=== PATIENT | female | born 1945 | race Caucasian/White ===

== ENCOUNTER 2016-11-28 10:15 | Inpatient (IN) | payer BC, OTHER ==
[~2016-11-28] VITALS: Ht 165.1 cm; Wt 61.1 kg
[~2016-11-28 10:15] MED LIST: ATOR-54 PO; BIOT1CAP8 PO; CALC1CHW PO; CHOL100040 PO; CRAN500C2 PO; LEVO150T PO; LOSA50TA6 PO; METF1TAB53 PO; MISC1CAP58 PO; MULT-506 PO; OMEG10007 PO; PLV75 PO; POLY335019 PO; PRT/20 PO; RXC5 PO
--- NOTE | 2016-11-28 10:35 | EMERGENCY ROOM VISIT NOTE ---
History Report prepared by Virgil: Mary Hanson Under the Supervision of: Dr. Venancio Pavon M.D. First contact with patient: 10:26 Chief Complaint: SYNCOPE (NEAR SYNCOPE) Stated Complaint: FAINT Nursing Triage Summary: pt near syncope today per spouse reports was like this when she had a mini stroke approx 10 months ago feels nauseated. pt able to speak no slurring noted. pt looks pale in color History of Present Illness The patient is a 71 year old female who presents to the Emergency Room with complaints of an episode of near syncope that occurred this morning. She is accompanied by her . He reports he found her this morning on the toilet, slumped over and not normally responsive. He does not believe she completely lost consciousness. He notes the patient had similar symptoms about 10 months ago when she experienced a TIA. The patient complains of feeling nauseous currently, but she has not vomited. She denies any chest pain or difficulty breathing. She denies any abdominal pain, urinary symptoms or pain or swelling in her legs. She underwent a left humerus repair surgery last month after a " bad fall", but states she is no longer taking pain medication for her discomfort. MRI confirmed a stroke in January 2016, with identical symptoms. Source of History: patient Onset: this morning Position: other (global) Timing: resolved Associated Symptoms: + nausea, No LOC, No SOB, No abdominal pain, No chest pain, No urinary symptoms, No vomiting Review of Systems See HPI for pertinent positives & negatives. A total of 10 systems reviewed and were otherwise negative. Past Medical & Surgical Medical Problems: (1) Fracture of humeral head, left, closed (2) Pre-syncope (3) Stroke Surgical Problems: (1) Hx of appendectomy Family History Diabetes mellitus Social History Smoking Status: Never Smoker Alcohol Use: occasionally Drug Use: none Marital Status: Housing Status: lives with family Occupation Status: retired Current/Historical Medications Scheduled Atorvastatin (Lipitor), 20 MG PO QAM Biotin (Biotin), 1 TAB PO QAM Calcium Carbonate-Vitamin D (Caltrate 600+D), 1 TAB PO QAM Cholecalciferol (Vitamin D-1000), 1 TAB PO QAM Clopidogrel Bisulfate (Clopidogrel), 1 TAB PO QAM Cranberry (Vaccinium Macrocarp (Cranberry), 1 TAB PO QAM Fish Oil ([place]-3), 1 CAP PO QAM Levothyroxine Sodium (Synthroid), 150 MCG PO QAM Losartan Potassium (Cozaar), 1 TAB PO DAILY Metformin Hcl (Glucophage Ext Rel), 500 MG PO BID Misc Natural Products (Lutein 20), 1 TAB PO QAM Multivitamin (Multivitamin), 1 TAB PO QAM Pantoprazole (Protonix), 20 MG PO QAM Scheduled PRN Oxycodone HCl (Oxycodone HCl), 5 MG PO Q6 PRN for Pain Polyethylene Glycol 3350 (Miralax), 17 GM PO DAILY PRN for Constipation Allergies Coded Allergies: No Known Allergies (Unverified , 11/28/16) Physical Exam Vital Signs Date Time Temp Pulse Resp B/P Pulse Ox O2 Delivery O2 Flow Rate FiO2 11/28/16 11:44 88 131/70 90 140/65 100 129/69 11/28/16 11:26 80 16 149/67 97 Room Air 11/28/16 10:20 36.4 83 18 115/70 99 Room Air Physical Exam GENERAL: Patient is ill-appearing and in moderate distress. She appears pale and about to pass out. HEENT: No acute trauma, normocephalic atraumatic, mucous membranes moist, no nasal congestion, no scleral icterus. NECK: No stridor, no adenopathy, no meningismus, trachea is midline. LUNGS: No dyspnea. Clear to auscultation and equal bilaterally. No wheeze, no rhonchi. HEART: Regular rate and rhythm. No murmurs, rubs, gallops appreciated. ABDOMEN: Soft, nontender, bowel sounds positive, no masses appreciated, no peritonitis. BACK: No midline tenderness, no CVA tenderness EXTREMITIES: Swelling of the left arm, extending to the wrist (ongoing since surgery 1 month ago). Anterior left shoulder incision, well healing. NEUROLOGIC: Alert and oriented, no acute motor or sensory deficits, no focal weakness, cranial nerves grossly intact. SKIN: Patient is pale and diaphoretic. No rash, no jaundice. Medical Decision & Procedures ER Provider Diagnostic Interpretation: This CT scan was reviewed and interpreted by the radiologist and reviewed by myself. CT SCAN OF THE BRAIN WITHOUT IV CONTRAST IMPRESSION: There is no hemorrhage, mass effect, or evidence of acute territorial ischemia by CT criteria. Electronically signed by: Andrez Youngblood M.D. 11/28/2016 11:21 AM This X-Ray was reviewed and interpreted by myself and the radiologist. SINGLE VIEW CHEST IMPRESSION: No active disease in the chest. Electronically signed by: Andrez Youngblood M.D. 11/28/2016 10:54 AM Laboratory Results 11/28/16 10:42 Red Blood Count 4.30, Mean Corpuscular Volume 85.1, Mean Corpuscular Hemoglobin 28.6, Mean Corpuscular Hemoglobin Concent 33.6, Mean Platelet Volume 8.9, Neutrophils (%) (Auto) 65.4, Lymphocytes (%) (Auto) 26.2, Monocytes (%) (Auto) 6.3, Eosinophils (%) (Auto) 1.9, Basophils (%) (Auto) 0.1, Neutrophils # (Auto) 4.87, Lymphocytes # (Auto) 1.95, Monocytes # (Auto) 0.47, Eosinophils # (Auto) 0.14, Basophils # (Auto) 0.01 11/28/16 10:42 Test 11/28/16 10:42 White Blood Count 7.45 K/uL (4.8-10.8) Red Blood Count 4.30 M/uL (4.2-5.4) Hemoglobin 12.3 g/dL (12.0-16.0) Hematocrit 36.6 % (37-47) Mean Corpuscular Volume 85.1 fL (80-100) Mean Corpuscular Hemoglobin 28.6 pg (25-34) Mean Corpuscular Hemoglobin Concent 33.6 g/dl (32-36) Platelet Count 194 K/uL (130-400) Mean Platelet Volume 8.9 fL (7.4-10.4) Neutrophils (%) (Auto) 65.4 % Lymphocytes (%) (Auto) 26.2 % Monocytes (%) (Auto) 6.3 % Eosinophils (%) (Auto) 1.9 % Basophils (%) (Auto) 0.1 % Neutrophils # (Auto) 4.87 K/uL (1.4-6.5) Lymphocytes # (Auto) 1.95 K/uL (1.2-3.4) Monocytes # (Auto) 0.47 K/uL (0.11-0.59) Eosinophils # (Auto) 0.14 K/uL (0-0.5) Basophils # (Auto) 0.01 K/uL (0-0.2) RDW Standard Deviation 41.6 fL (36.4-46.3) RDW Coefficient of Variation 13.5 % (11.5-14.5) Immature Granulocyte % (Auto) 0.1 % Immature Granulocyte # (Auto) 0.01 K/uL (0.00-0.02) Prothrombin Time 11.4 SECONDS (9.0-12.0) Prothromb Time International Ratio 1.1 (0.9-1.1) Activated Partial Thromboplast Time 24.9 SECONDS (21.0-31.0) Partial Thromboplastin Ratio 1.0 D-Dimer 320 ug/L FEU (0-500) Anion Gap 10.0 mmol/L (3-11) Est Creatinine Clear Calc Drug Dose 63.4 ml/min Estimated GFR () 95.8 Estimated GFR (Non- 82.7 BUN/Creatinine Ratio 11.1 (10-20) Calcium Level 9.6 mg/dl (8.5-10.1) Phosphorus Level 3.8 mg/dl (2.5-4.9) Magnesium Level 2.0 mg/dl (1.8-2.4) Total Bilirubin 0.4 mg/dl (0.2-1) Direct Bilirubin 0.1 mg/dl (0-0.2) Aspartate Amino Transf (AST/SGOT) 21 U/L (15-37) Alanine Aminotransferase (ALT/SGPT) 31 U/L (12-78) Alkaline Phosphatase 113 U/L (45-117) Total Creatine Kinase 28 U/L (26-192) Creatine Kinase MB < 0.5 ng/ml (0.5-3.6) Creatine Kinase MB Ratio (0-3.0) Troponin I < 0.015 ng/ml (0-0.045) Total Protein 7.7 gm/dl (6.4-8.2) Albumin 3.7 gm/dl (3.4-5.0) Lipase 128 U/L (73-393) Acetaminophen Level 4 ug/ml (10-30) Laboratory results as reviewed by me. Medications Administered Medications (Trade) Dose Ordered Sig/Norm Route Start Time Stop Time Status Last Admin Dose Admin Acetaminophen 1000 mg 1,000 mg NOW STAT PO 11/28/16 12:10 11/28/16 12:11 DC 1/21/17 12:22 1,000 MG Sodium Chloride (Nss 1000ml) 1,000 ml @ 75 mls/hr [id number] IV 11/28/16 12:58 12/28/16 12:57 11/28/16 14:49 75 MLS/HR ECG Indication: syncope (near syncope) Rate (beats per minute): 79 Findings: no acute ischemic change, no ectopy ED Course 1029: The patient was evaluated in room A11B. A complete history and physical exam was performed. 1120: I reevaluated the patient. She is feeling much better after laying down for a while. 1135: I reassessed the patient. She is still feeling well and resting comfortably. I discussed my plan for her to remain in the hospital for further evaluation and management and she and her family verbalized complete understanding and agreement. 1142: I discussed the patient's case with Dr. Laboy [facility] Hospitalist. The patient will be further evaluated. 1210: Acetaminophen 1000 mg PO. Medical Decision Differential diagnoses include Benign positional vertigo, Dehydration, Hypovolemia, Anemia, Tumor, Infection, Hypoglycemia, Electrolyte abnormalities, Cardiac sources, Intracerebral event, Toxicologic, Neurologic, as well as others were entertained. 71 yr old female arrives quite ill appearing, pale, diaphoretic and confused/ altered. Put in bed and labs, ekg, ct ordered. No bleed on CT head. EKG without ischemia. CXR clear. She is feeling better and has returned back to her baseline. With arm swelling likely surgical related I did do a dimer to rule out clotting which is normal, and without sob, tachycardia, nor CP I do not feel that empiric CT PE study done. Review of chart and discussion with family make clear these symptoms are similar to her previous stroke (proven by MRI at that time). She would not be TPA candidate given her otherwise normal neuro exam, recent surgery, as well as fact symptoms resolved. She will be brought in for further near-syncopal work-up and evaluation given severity of her symptoms on arrival. Consults Time Called: 1140 Consulting Physician: Dr. Laboy [facility] Hospitalist Returned Call: 1142 I discussed the patient's case with Dr. Laboy [facility] Hospitalist. The patient will be further evaluated. Impression Primary Impression: Near syncope Additional Impression: Altered mental status Scribe Attestation The scribe's documentation has been prepared under my direction and personally reviewed by me in its entirety. I confirm that the note above accurately reflects all work, treatment, procedures, and medical decision making performed by me. Departure Information Dispostion Being Evaluated By Hospitalist Referrals No Doctor, Assigned (PCP) Patient Instructions My [facility] Problem Qualifiers Additional Impression: Altered mental status Altered mental status type: transient alteration of awareness Qualified Codes : R40.4 - Transient alteration of awareness
[2016-11-28 10:53] LABS: BASO % 0.1 %; BASO ABS # 0.01 K/uL (0-0.2); COMPLETE YES; EOS % 1.9 %; HEMATOCRIT 36.6 % (37-47); IG% 0.1 %; LYMPH % 26.2 %; LYMPH ABS # 1.95 K/uL (1.2-3.4); MEAN CELL VOLUME 85.1 fL (80-100); MEAN CORPUSCULAR HEMOGLOBIN 28.6 pg (25-34); MEAN CORPUSCULAR HGB CONC 33.6 g/dl (32-36); MEAN PLATELET VOLUME 8.9 fL (7.4-10.4); MONO % 6.3 %; NEUT % 65.4 %; PLATELET COUNT 194 K/uL (130-400); WHITE BLOOD COUNT 7.45 K/uL (4.8-10.8)
--- NOTE | 2016-11-28 10:56 | DIAGNOSTIC IMAGING REPORT ---
SINGLE VIEW CHEST CLINICAL HISTORY: Generalized weakness. FINDINGS: An AP, portable, upright chest radiograph is compared to study dated 10/21/2016. The examination is degraded by portable technique and patient rotation. The cardiomediastinal silhouette is unremarkable. Chronic interstitial thickening is unchanged. There is minimal bibasilar atelectasis. No airspace consolidation or pleural effusion is identified. No pneumothorax is seen. The skeletal structures are osteopenic. The bony thorax is grossly intact. Mild degenerative change and scoliosis are noted in the thoracic spine. A left shoulder arthroplasty is in place. IMPRESSION: No active disease in the chest. Electronically signed by: Andrez Youngblood M.D. 11/28/2016 10:54 AM Dictated Date/Time: 11/28/2016 10:53 AM
[2016-11-28 11:15] LABS: ALT/SGPT 31 U/L (12-78); AST/SGOT 21 U/L (15-37); BLOOD UREA NITROGEN 8 mg/dl (7-18); BUN/CREATININE RATIO 11.1 (10-20); CALCIUM 9.6 mg/dl (8.5-10.1); CARBON DIOXIDE 26 mmol/L (21-32); CHLORIDE 104 mmol/L (98-107); CREATININE 0.74 mg/dl (0.60-1.20); GLUCOSE 229 mg/dl (70-99); INR 1.1 (0.9-1.1); POTASSIUM 3.6 mmol/L (3.5-5.1); PROTHROMBIN TIME (PATIENT) 11.4 SECONDS (9.0-12.0); SODIUM 140 mmol/L (136-145)
[2016-11-28 11:22] LABS: ALKALINE PHOSPHATASE 113 U/L (45-117); PHOSPHORUS 3.8 mg/dl (2.5-4.9)
--- NOTE | 2016-11-28 11:23 | DIAGNOSTIC IMAGING REPORT ---
CT SCAN OF THE BRAIN WITHOUT IV CONTRAST CLINICAL HISTORY: Generalized weakness. COMPARISON STUDY: CT scan of the brain dated 10/19/2016. TECHNIQUE: Unenhanced axial CT scan of the brain is performed from the vertex to the skull base. CT DOSE: 537.48 mGy.cm FINDINGS: Brain parenchyma: There are age-related involutional changes noting mild to moderate patchy subcortical and periventricular microangiopathic change. Chronic lacunar infarct identified in the left villalobos radiata and basal ganglia. A chronic lacunar infarct is also seen in the right cerebellar hemisphere. There is no hemorrhage, mass effect, or evidence of acute territorial ischemia by CT criteria. Lucas-white matter is preserved. No extra-axial fluid collection is seen. Ventricles, sulci, cisterns: Prominent secondary to involutional change. Intracranial vasculature: There is atherosclerotic calcification of the cavernous carotid and vertebral arteries. Calvarium: Unremarkable. Sinuses and mastoids: The visualized paranasal sinuses are clear. The mastoid air cells are well pneumatized. Orbits: The bony orbits are grossly intact. There are bilateral ocular lens implants. IMPRESSION: There is no hemorrhage, mass effect, or evidence of acute territorial ischemia by CT criteria. Electronically signed by: Andrez Youngblood M.D. 11/28/2016 11:21 AM Dictated Date/Time: 11/28/2016 11:12 AM
[2016-11-28] MEDS ORDERED: ACETAMINOPHEN 500 MG TAB PO STA (12:10)
[2016-11-28] MEDS ORDERED: MAGNESIUM HYDROXIDE SUSP 30 ML UDC PO PRN (13:00)
[2016-11-28] MEDS ORDERED: ALUMINUM/MAGNESIUM/SIMETH (MAALOX MAX) 30 ML UDC PO PRN (13:00)
[2016-11-28] MEDS ORDERED: GLUCOSE 40% GEL 15 GM TUBE PO PRN (13:00)
[2016-11-28] MEDS ORDERED: NITROGLYCERIN 0.4 MG SL PER TAB CHARGE SL PRN (13:00)
[2016-11-28] MEDS ORDERED: ONDANSETRON INJ 2 MG/ML 2 ML VIAL IV PRN (13:00)
[2016-11-28] MEDS ORDERED: GLUCOSE 10 TABS/TUBE PO PRN (13:00)
[2016-11-28] MEDS ORDERED: GLUCAGON FOR INJ 1 MG VIAL SQ PRN (13:00)
[2016-11-28] MEDS ORDERED: POLYETHYLENE (MIRALAX) 17 GM PACK PO PRN (13:00)
[2016-11-28] MEDS ORDERED: DEXTROSE 50% 50 ML SYR IV PRN (13:00)
[2016-11-28] MEDS ORDERED: ZOLPIDEM TARTRATE 5 MG TAB PO PRN (13:00)
[2016-11-28] MEDS ORDERED: PHARMACY GLYCEMIC MGMT CONSULT PRN (13:06)
--- NOTE | 2016-11-28 14:18 | Pharmacy Progress Note ---
Glycemic Control Intl Consult Date of Service Nov 28, 2016. Scope Glycemic Pharmacist consulted by Dr Mendoza on 11/28/16 for glycemic control and to write orders per [facility] inpatient glycemic control protocol Objective Weight (Kilograms): 56.000 Accuchecks BSG (last 24hrs): Test 11/28/16 10:42 Random Glucose 229 mg/dl (70-99) Laboratory Data (last 24hrs) Test 11/28/16 10:42 Anion Gap 10.0 mmol/L BUN/Creatinine Ratio 11.1 Blood Urea Nitrogen 8 mg/dl Creatinine 0.74 mg/dl Potassium Level 3.6 mmol/L Sodium Level 140 mmol/L White Blood Count 7.45 K/uL Red Blood Count 4.30 M/uL Hemoglobin 12.3 g/dL Hematocrit 36.6 % Mean Corpuscular Volume 85.1 fL Mean Corpuscular Hemoglobin 28.6 pg Mean Corpuscular Hemoglobin Concent 33.6 g/dl Platelet Count 194 K/uL Mean Platelet Volume 8.9 fL Neutrophils (%) (Auto) 65.4 % Lymphocytes (%) (Auto) 26.2 % Monocytes (%) (Auto) 6.3 % Eosinophils (%) (Auto) 1.9 % Basophils (%) (Auto) 0.1 % Neutrophils # (Auto) 4.87 K/uL Lymphocytes # (Auto) 1.95 K/uL Monocytes # (Auto) 0.47 K/uL Eosinophils # (Auto) 0.14 K/uL Basophils # (Auto) 0.01 K/uL HbA1c 10/12/16 Hgb A1c 6%, updated A1c pending Recent Pertinent Medications Outpatient Anti-diabetic Regimen: * Metformin 500 mg bid * A1c = pending 11/29/16 The patient is currently receiving: * Basal insulin: none * Correctional Insulin: none * Prandial insulin: none * Oral Agents: none Risk Factors for Insulin Resistance: * Steroids: no * Infection: no * Pressors: no * IVF: NS @ 75 ml/hr * Recent Surgery: no * Diet: type 1 diabetic, change to type 2 diabetic * Mechanical Ventilation: no Assessment & Plan ASSESSMENT: * ADA & AACE recommend a goal blood sugar range 140-180 mg/dl for the majority of critically ill & non-critically ill patients. However, more stringent targets may be selected in individual cases. * 71 yo type 2 diabetic, fairly well-controlled in past on oral meds (A1c of 6.0 % on 10/12/16). Repeat A1c pending to assess recent glycemic control. Will start weight-based Novolog correction factor. Will reassess need for basal insulin or carb ratio in am. PLAN FOR INPATIENT GLYCEMIC CONTROL: * Holding outpatient oral diabetes medications * No basal insulin at this time * Correctional Insulin with NOVOLOG per scale ACHS or Q6hrs while NPO * Goal Range: Low 120 mg/dL - High 140 mg/dL * Correction Factor: 40 mg/dL/unit * No Nutritional / Prandial insulin at this time * Please note that the plan above was derived based on current level of insulin resistance and hospital stress. These recommendations are appropriate for inpatient admission only. Plan of care upon discharge will need to be reassessed to avoid potential outpatient hypo/hyperglycemia. Thank you.
[2016-11-28] MEDS: SODIUM CHLORIDE 0.9% 1000ML 1,000 ML IV SCH (14:49)
[2016-11-28 15:10] VITALS: BP 125/72; PULSE 82; TEMP 36.7; O2SAT 96; Ht 165.1 cm; Wt 61.1 kg
[2016-11-28 15:16] VITALS: BP 125/73; PULSE 75; TEMP 36.6; O2SAT 97
[2016-11-28 16:00] VITALS: O2SAT 96
[2016-11-28 16:30] LABS: URINE APPEARANCE CLEAR (CLEAR); URINE BILIRUBIN NEG (NEG); URINE COLOR YELLOW; URINE EPITHELIAL CELL AUTO 20-30 /lpf (0-5); URINE NITRITE NEG (NEG); URINE SPECIFIC GRAVITY 1.005 (1.000-1.030); UROBILINOGEN NEG (NEG); ZZUR CULT IF INDIC CLEAN CATCH NO
[2016-11-28] MEDS: INSULIN ASPART 100 UNITS/ML 3 ML PEN SC SCH ×2 (16:30→20:21)
[2016-11-28 16:32] LABS: MANUAL MICROSCOPIC REQUIRED? NO; REVIEW REQ? NO
[2016-11-28] MEDS ORDERED: OXYCODONE HCL IR 5 MG TAB (IMMEDIATE RELEASE) PO PRN (17:15)
[2016-11-28] MEDS: ACETAMINOPHEN 325 MG TAB PO PRN (18:27)
[2016-11-28 19:41] VITALS: BP 102/66; PULSE 86; TEMP 37; O2SAT 95
--- NOTE | 2016-11-28 20:04 | History and Physical ---
History & Physical Date & Time of Service: Nov 28, 2016 at 19:45 Chief Complaint: Pre-Syncope Primary Care Physician: Heidi Lim DO History of Present Illness Source: patient, family 71 years old female with PMHx of DMII on oral hypoglycemia, Dyslipidemia, hypothyroidism and left paraventricular region CVA in 01/2016 was brought to the ED by her . He found her setting on the toilet, following command but lethargic. as far as the patient she said that she was getting ready to brush her teeth when she felt funny, she also felt she wanted to urinate. she sat on the toilet and then felt she is passing out , she tried to call for her to come and see her. he said she was following commands but semi conscious he said that last year she had a similar situation happened last year when she was completely unconsciousness, she was found to have a subacute CVA Past Medical/Surgical History Surgical Problems: (1) Hx of appendectomy Status: Chronic Family History Diabetes mellitus Social History Smoking Status: Never Smoker Drug Use: none Marital Status: Occupational Status: retired Multi-Drug Resistant Organisms History of MDRO: No Allergies Coded Allergies: No Known Allergies (Unverified , 11/28/16) Home Medications Scheduled Atorvastatin (Lipitor), 20 MG PO QAM Biotin (Biotin), 1 TAB PO QAM Calcium Carbonate-Vitamin D (Caltrate 600+D), 1 TAB PO QAM Cholecalciferol (Vitamin D-1000), 1 TAB PO QAM Clopidogrel Bisulfate (Clopidogrel), 1 TAB PO QAM Cranberry (Vaccinium Macrocarp (Cranberry), 1 TAB PO QAM Fish Oil ([place]-3), 1 CAP PO QAM Levothyroxine Sodium (Synthroid), 150 MCG PO QAM Losartan Potassium (Cozaar), 1 TAB PO DAILY Metformin Hcl (Glucophage Ext Rel), 500 MG PO BID Misc Natural Products (Lutein 20), 1 TAB PO QAM Multivitamin (Multivitamin), 1 TAB PO QAM Pantoprazole (Protonix), 20 MG PO QAM Scheduled PRN Oxycodone HCl (Oxycodone HCl), 5 MG PO Q6 PRN for Pain Polyethylene Glycol 3350 (Miralax), 17 GM PO DAILY PRN for Constipation Review of Systems Constitutional: No chills, No fatigue, No fever, No problem reported, No sweats , No weakness, No weight loss Eyes: No diplopia, No discharge, No eye pain, No problem reported, No redness, No worsening of vision ENT: No dental problems, No hearing loss, No nasal symptoms, No problem reported, No sore throat, No tinnitus, No trouble swallowing, No unusual epistaxis Respiratory: No cough, No dyspnea at rest, No dyspnea on exertion, No hemoptysis, No problem reported, No shortness of breath, No sputum, No wheezing Cardiovascular: No PND, No chest pain, No claudication, No edema, No orthopnea , No palpitations, No problem reported Abdomen: No GI bleeding, No constipation, No diarrhea, No nausea, No pain, No problem reported, No vomiting Musculoskeletal: No calf pain, No joint pain, No muscle pain, No problem reported, No swelling Genitourinary - Female: No dysmenorrhea, No dysuria, No hematuria, No menorrhagia, No metrorrhagia, No , No problem reported, No rash, No urinary frequency, No urinary incontinence, No urinary retention, No urinary urgency, No vaginal bleeding, No vaginal discharge, No vaginal itching, No vulvodynia Neurologic: + problem reported (presyncope) Endocrine: No excessive thirst, No excessive urination, No fatigue, No problem reported Hematologic / Lymphatic: No abnormal bleeding/bruising, No clotting problems, No night sweats, No problem reported, No swollen lymph nodes Integumentary: No bleeding, No color change, No itch, No new/changing skin lesions, No problem reported, No rash Physical Exam Vital Signs Date Time Temp Pulse Resp B/P Pulse Ox O2 Delivery O2 Flow Rate FiO2 11/28/16 16:00 96 Room Air 11/28/16 16:00 Room Air 11/28/16 15:16 36.6 75 16 125/73 97 Room Air 11/28/16 15:10 36.7 82 18 125/72 96 Room Air 11/28/16 13:41 84 16 119/76 99 11/28/16 11:44 88 131/70 90 140/65 100 129/69 11/28/16 11:26 80 16 149/67 97 Room Air 11/28/16 10:20 36.4 83 18 115/70 99 Room Air General Appearance: no apparent distress Head: normocephalic Eyes: normal inspection, PERRL, EOMI ENT: normal ENT inspection, hearing grossly normal Neck: supple Respiratory/Chest: chest non-tender, lungs clear, normal breath sounds, no respiratory distress Cardiovascular: regular rate, rhythm, no edema, no gallop, no JVD, no murmur Abdomen/GI: normal bowel sounds, non tender, soft, no pulsatile mass Genitourinary - Female: external genitalia normal, normal pelvic exam, normal cervix Back: normal inspection Extremities/Musculoskelatal: normal inspection, no calf tenderness, normal capillary refill, no pedal edema Neurologic/Psych: hog operator II-XII nml as tested, no motor/sensory deficits, alert, normal mood/affect, normal reflexes, oriented x 3 Skin: normal color, warm/dry, no rash Diagnostics Laboratory Results Results Past 24 Hours Test 11/28/16 10:42 11/28/16 15:56 11/28/16 16:06 Range/Units White Blood Count 7.45 4.8-10.8 K/uL Red Blood Count 4.30 4.2-5.4 M/uL Hemoglobin 12.3 12.0-16.0 g/dL Hematocrit 36.6 37-47 % Mean Corpuscular Volume 85.1 80-100 fL Mean Corpuscular Hemoglobin 28.6 25-34 pg Mean Corpuscular Hemoglobin Concent 33.6 32-36 g/dl Platelet Count 194 130-400 K/uL Mean Platelet Volume 8.9 7.4-10.4 fL Neutrophils (%) (Auto) 65.4 % Lymphocytes (%) (Auto) 26.2 % Monocytes (%) (Auto) 6.3 % Eosinophils (%) (Auto) 1.9 % Basophils (%) (Auto) 0.1 % Neutrophils # (Auto) 4.87 1.4-6.5 K/uL Lymphocytes # (Auto) 1.95 1.2-3.4 K/uL Monocytes # (Auto) 0.47 0.11-0.59 K/uL Eosinophils # (Auto) 0.14 0-0.5 K/uL Basophils # (Auto) 0.01 0-0.2 K/uL RDW Standard Deviation 41.6 36.4-46.3 fL RDW Coefficient of Variation 13.5 11.5-14.5 % Immature Granulocyte % (Auto) 0.1 % Immature Granulocyte # (Auto) 0.01 0.00-0.02 K/uL Prothrombin Time 11.4 9.0-12.0 SECONDS Prothromb Time International Ratio 1.1 0.9-1.1 Activated Partial Thromboplast Time 24.9 21.0-31.0 SECONDS Partial Thromboplastin Ratio 1.0 D-Dimer 320 0-500 ug/L FEU Sodium Level 140 136-145 mmol/L Potassium Level 3.6 3.5-5.1 mmol/L Chloride Level 104 98-107 mmol/L Carbon Dioxide Level 26 21-32 mmol/L Anion Gap 10.0 3-11 mmol/L Blood Urea Nitrogen 8 7-18 mg/dl Creatinine 0.74 0.60-1.20 mg/dl Est Creatinine Clear Calc Drug Dose 63.4 ml/min Estimated GFR () 95.8 Estimated GFR (Non- 82.7 BUN/Creatinine Ratio 11.1 10-20 Random Glucose 229 70-99 mg/dl Calcium Level 9.6 8.5-10.1 mg/dl Phosphorus Level 3.8 2.5-4.9 mg/dl Magnesium Level 2.0 1.8-2.4 mg/dl Total Bilirubin 0.4 0.2-1 mg/dl Direct Bilirubin 0.1 0-0.2 mg/dl Aspartate Amino Transf (AST/SGOT) 21 15-37 U/L Alanine Aminotransferase (ALT/SGPT) 31 12-78 U/L Alkaline Phosphatase 113 45-117 U/L Total Creatine Kinase 28 26-192 U/L Creatine Kinase MB < 0.5 0.5-3.6 ng/ml Creatine Kinase MB Ratio 0-3.0 Troponin I < 0.015 0-0.045 ng/ml Total Protein 7.7 6.4-8.2 gm/dl Albumin 3.7 3.4-5.0 gm/dl Lipase 128 73-393 U/L Acetaminophen Level 4 10-30 ug/ml Urine Color YELLOW Urine Appearance CLEAR CLEAR Urine pH 7.0 4.5-7.5 Urine Specific [place] 1.005 1.000-1.030 Urine Protein NEG NEG Urine Glucose (UA) TRACE NEG Urine Ketones NEG NEG Urine Occult Blood NEG NEG Urine Nitrite NEG NEG Urine Bilirubin NEG NEG Urine Urobilinogen NEG NEG Urine Leukocyte Esterase SMALL NEG Urine WBC (Auto) 5-10 0-5 /hpf Urine RBC (Auto) 0-4 0-4 /hpf Urine Hyaline Casts (Auto) 1-5 0-5 /lpf Urine Epithelial Cells (Auto) 20-30 0-5 /lpf Urine Bacteria (Auto) NEG NEG Bedside Glucose 73 70-90 mg/dl Impression Assessment and Plan 71 years old female with PMHx of DMII on oral hypoglycemia, Dyslipidemia, hypothyroidism and left paraventricular region CVA in 01/2016 presented with presyncope Presyncope I suspect a cardiac event consult Dr. 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 Y/N: Yes Risk Level: Moderate
[2016-11-28] MEDS ORDERED: ENOXAPARIN 40 MG/0.4 ML SYR SC SCH (21:00)
[2016-11-28 23:29] VITALS: BP 117/69; PULSE 84; TEMP 37.4; O2SAT 96
[2016-11-29] MEDS: ACETAMINOPHEN 325 MG TAB PO PRN ×3 (00:39→12:46)
[2016-11-29] MEDS: SODIUM CHLORIDE 0.9% 1000ML 1,000 ML IV SCH ×2 (03:00→15:48)
[2016-11-29 04:31] VITALS: BP 132/75; PULSE 77; TEMP 36.9; O2SAT 96
[2016-11-29] MEDS ORDERED: LEVOTHYROXINE 150 MCG TAB PO SCH (06:30)
[2016-11-29 07:25] VITALS: BP 138/76; PULSE 74; TEMP 36.8; O2SAT 96
[2016-11-29] MEDS: INSULIN ASPART 100 UNITS/ML 3 ML PEN SC SCH ×3 (08:02→17:20)
[2016-11-29] MEDS ORDERED: MULTIVITAMIN TAB PO SCH (09:00)
[2016-11-29] MEDS ORDERED: CLOPIDOGREL BISULFATE 75 MG TAB PO SCH (09:00)
[2016-11-29] MEDS ORDERED: ATORVASTATIN 20 MG TAB PO SCH (09:00)
[2016-11-29] MEDS ORDERED: PANTOprazole SOD 40 MG TAB PO SCH (09:00)
--- NOTE | 2016-11-29 11:50 | DIAGNOSTIC IMAGING REPORT ---
MRI OF THE BRAIN WITHOUT CONTRAST CLINICAL HISTORY: Change in neurological status, weakness, presyncope, possible stroke. COMPARISON STUDY: Head CT dated 11/28/2016, MRI the brain dated 01/28/2016 FINDINGS: Sagittal T1, axial diffusion, proton density and T2 weighted axial, coronal FLAIR, and axial T1-weighted images were acquired. No intra or extra-axial mass lesions are visualized There are punctate foci of increased signal within the miguel angel and pontomedullary junction. These foci do not demonstrate diminished signal on the ADC map and are unlikely to represent acute infarcts. There is no definite evidence of acute cortical infarction. There is no evidence of ventricular dilatation. Proton density T2-weighted and FLAIR images reveal there are scattered foci of increased T2 and FLAIR signal within the white matter, likely small vessel basis. There is an old right cerebellar infarct. There is no left basal ganglia infarct. There foci of increased FLAIR signal within the miguel angel likely a small vessel ischemic basis.. There are no abnormal flow voids. IMPRESSION: 1. No evidence of intracranial mass 2. No evidence of acute or subacute infarction 3. Moderate white matter disease including foci of increased T2 signal within the miguel angel. In addition there are old ischemic infarcts within the right cerebellum and left basal ganglia Electronically signed by: Danilo Galo M.D. 11/29/2016 11:48 AM Dictated Date/Time: 11/29/2016 11:43 AM
--- NOTE | 2016-11-29 12:06 | Cardiology Consultation ---
Cardiology Consultation Date of Consultation: Nov 29, 2016. Requesting Physician: Dr. Foote Reason for Consultation: Presyncope Pt evaluation today including: conversation w/ patient, conversation w/ family , physical exam, lab review, review of studies, review of inpatient medication list, conversation w/ attending History of Present Illness This is a 71-year-old woman who has a history of diabetes mellitus, hyperlipidemia, hypothyroidism as well as CVA in January 2016. Her current presentation is due to feeling unusual which occurred while brushing her teeth, she then sat on the toilet and then felt extremely lightheaded and as though she would pass out but denies actually passing out. She had no palpitations, no chest discomfort and reports that it took a long time for her to completely recover. She thinks the total episode lasted about one half hours which is confirmed by the family who are present. She feels that she continued to have symptoms while in the emergency room. She had a similar symptoms in January 2016 ( although at that time she did lose consciousness) and at that time was found to have a subacute CVA. It sounds as though she had no residual. At the time of my evaluation she was feeling well, she has no lightheadedness, dizziness or palpitations and no complaints today. Past Medical/Surgical History Past medical history: 1. Diabetes mellitus 2. Hypercholesterolemia 3. Hypothyroidism 4. CVA January 2016 Past surgical history: 1. Appendectomy Family History Diabetes mellitus Social History Smoking Status: Never Smoker History of Alcohol Use: No Review of Systems Constitutional: No fever, No weakness, No weight loss Respiratory: No cough, No dyspnea on exertion, No shortness of breath, No wheezing Cardiac: No PND, No chest pain, No edema, No orthopnea, No palpitations Abdomen: No GI bleeding, No diarrhea, No nausea, No pain, No vomiting Female : No problem reported Neurologic: + problem reported (near loss of consciousness), No balance problems, No numbness/tingling, No paralysis, No weakness Heme: No abnormal bleeding/bruising, No clotting problems Endo: No fatigue Skin: No problem reported All Other Systems: Reviewed and Negative Allergies Coded Allergies: No Known Allergies (Unverified , 11/28/16) Medications Current Inpatient Medications Medications (Trade) Dose Ordered Sig/Norm Route Start Time Stop Time Status Last Admin Dose Admin Enoxaparin Sodium 40 mg 40 mg Q24H SC 11/28/16 21:00 12/28/16 20:59 11/28/16 21:40 40 MG Sodium Chloride (Nss 1000ml) 1,000 ml @ 75 mls/hr [id number] IV 11/28/16 12:58 12/28/16 12:57 11/29/16 03:00 75 MLS/HR Acetaminophen (Tylenol Tab) 650 mg Q4H PRN PO 11/28/16 13:00 12/28/16 12:59 11/29/16 07:12 650 MG Al Hydrox/Mg Hydrox/Simethicone (Maalox Max Susp) 15 ml Q4H PRN PO 11/28/16 13:00 12/28/16 12:59 Magnesium Hydroxide (Milk Of Magnesia Susp) 30 ml Q12H PRN PO 11/28/16 13:00 12/28/16 12:59 Zolpidem Tartrate (Ambien Tab) 5 mg HSZ PRN PO 11/28/16 13:00 12/28/16 12:59 Ondansetron HCl (Zofran Inj) 4 mg Q6H PRN IV 11/28/16 13:00 12/28/16 12:59 Nitroglycerin (Nitrostat Tab) 0.4 mg UD PRN SL 11/28/16 13:00 12/28/16 12:59 Polyethylene (Miralax Powder Packet) 17 gm DAILY PRN PO 11/28/16 13:00 12/28/16 12:59 Insulin Aspart (novoLOG ASPART) SLIDING SCALE If C... ACHS SC 11/28/16 16:00 12/28/16 15:59 Glucose (Glucose 40% Gel) 15-30 GRAMS 15 GRAMS... UD PRN PO 11/28/16 13:00 12/28/16 12:59 Glucose (Glucose Chew Tab) 4-8 Tablets 4 Tabl... UD PRN PO 11/28/16 13:00 12/28/16 12:59 Dextrose (Dextrose 50% 50ML Syringe) 25-50ML OF 50% DW IV FOR... UD PRN IV 11/28/16 13:00 12/28/16 12:59 Glucagon (Glucagon Inj) 1 mg UD PRN SQ 11/28/16 13:00 12/28/16 12:59 Miscellaneous Information (Consult Glycemic Management Pharmacy) 1 ea UD PRN N/A 11/28/16 13:06 12/28/16 13:05 Atorvastatin Calcium (Lipitor Tab) 20 mg QAM PO 11/29/16 09:00 12/29/16 08:59 11/29/16 08:05 20 MG Clopidogrel Bisulfate (plAVix TAB) 75 mg QAM PO 11/29/16 09:00 12/29/16 08:59 11/29/16 08:05 75 MG Levothyroxine Sodium (Synthroid Tab) 150 mcg DAILYBB PO 11/29/16 06:30 12/29/16 06:29 11/29/16 07:11 150 MCG Multivitamins (Multivitamin Tab) 1 tab QAM PO 11/29/16 09:00 12/29/16 08:59 11/29/16 08:05 1 TAB Oxycodone HCl (Roxicodone Immediate Rel Tab) 5 mg Q6 PRN PO 11/28/16 17:15 12/12/16 17:14 Pantoprazole Sodium (Protonix Tab) 40 mg QAM PO 11/29/16 09:00 12/29/16 08:59 11/29/16 08:06 40 MG Physical Exam Vital Signs Past 12 Hours Date Time Temp Pulse Resp B/P Pulse Ox O2 Delivery O2 Flow Rate FiO2 11/29/16 08:00 Room Air 11/29/16 07:25 36.8 74 16 138/76 96 Room Air 11/29/16 04:31 36.9 77 16 132/75 96 Room Air 11/29/16 04:10 Room Air 11/29/16 00:10 Room Air 11/28/16 23:29 37.4 84 18 117/69 96 Room Air Constitutional: General Apperance: heathly-appearing Level of Distress: NAD Psychiatric: Mental Status: active & alert Head: normocephalic Eyes: EOM: EOMI ENMT: normal ENT inspection, hearing grossly normal Neck: supple, no masses Lungs: Respiratory effort: no dyspnea, good air movement Auscultation: breath sounds normal, no wheezing Cardiovascular: Heart Auscultation: RRR, no murmurs, no rubs, no gallops Peripheral Pulses: Bruits: none appreciated Abdomen: Bowel Sounds: normal Inspection & Palpation: soft, no tenderness, guarding & rebound, no masses Musculoskeletal: normal strength (5/5 throughout), pertinent finding (her left arm is in a sling following a shoulder injury in the past) Extremities: no edema Neurologic: Cranial Nerves: grossly intact Sensation: grossly intact Data Laboratory Results: Last 24 Hours Test 11/28/16 15:56 11/28/16 16:06 11/28/16 20:08 11/29/16 06:00 Urine Color YELLOW Urine Appearance CLEAR Urine pH 7.0 Urine Specific [place] 1.005 Urine Protein NEG Urine Glucose (UA) TRACE Urine Ketones NEG Urine Occult Blood NEG Urine Nitrite NEG Urine Bilirubin NEG Urine Urobilinogen NEG Urine Leukocyte Esterase SMALL Urine WBC (Auto) 5-10 /hpf Urine RBC (Auto) 0-4 /hpf Urine Hyaline Casts (Auto) 1-5 /lpf Urine Epithelial Cells (Auto) 20-30 /lpf Urine Bacteria (Auto) NEG Bedside Glucose 73 mg/dl 105 mg/dl Thyroid Stimulating Hormone (TSH) 0.501 uIu/ml Test 11/29/16 07:19 Bedside Glucose 104 mg/dl Imaging: An MRI today does not show any evidence of acute infarction Echocardiography is pending, An echocardiogram had been done in January 2016 and that was unremarkable. EKG: An electrocardiogram on admission 11/28/2016 at 10:35 AM showed sinus rhythm at 79 bpm with left axis deviation and left ventricular hypertrophy, small Q waves in the lateral leads. Similar to prior electrocardiograms. Telemetry reviewed: Sinus rhythm, no significant arrhythmia. Assessment & Plan #1. Recurrent presyncope: The symptoms are little bit unusual in that they are very prolonged, in addition the episode apparently lasted sometime after she came to the emergency room (although perhaps it was just the residual effects of it). She did have event monitoring for a month, however these episodes are very infrequent and is possible they're related to an arrhythmia although it seems unlikely. If it is still felt that there is an arrhythmic component the only reasonable option would be to implant a loop recorder. I discussed this with her and her family, it would be the only way to be confident that she does not have a rhythm abnormality. Typically arrhythmia does not cause prolonged symptoms like either of these episodes however. Thank you for allowing me to participate in her care.
--- NOTE | 2016-11-29 13:55 | ECHOCARDIOGRAM REPORT ---
*NOTICE TO RECEIVING [employer] This information is strictly Confidential and protected under [place] law. [place] law prohibits you from making any further disclosure of this information unless further disclosure is expressly permitted by the written consent of the person to whom it pertains or is authorized by law. A general authorization for the release of medical or other information is not sufficient for this purpose. Hospital accepts no responsibility if the information is made available to any other person, INCLUDING THE PATIENT. Interpretation Summary * Conclusions -- * 1. Normal LV size. Normal LV wall thickness. Sigmoid septum. * 2. Normal LV systolic function. LVEF 60-65%. No regional wall motion abnormalities. * 3. Normal RV size and function. * 4. Thickened, sclerotic mitral valve with trace regurgitation. * 5. Grade 1 diastolic dysfunction * 6. Compared with prior study on 01/29/2016: No significant change Procedure Details * A complete two-dimensional transthoracic echocardiogram was performed (2D, M-mode, Doppler and color flow Doppler). * The study was technically difficult. * There were technical limitations due to patient's poor positioning due to recent left shoulder surgery leaving patient's left arm in sling and unable to roll on left side. Left Ventricle * The left ventricle is grossly normal size. * There is normal left ventricular wall thickness. * The basal septum is thickened and angulated consistent with sigmoid septum. * Ejection Fraction = 60-65%. Right Ventricle * The right ventricle is grossly normal size. * The right ventricular systolic function is normal as assessed by tricuspid annular plane systolic excursion (TAPSE) (normal >1.5 cm). Atria * The left atrium is moderately dilated. * Right atrial size is normal. Mitral Valve * The mitral valve is grossly normal. * The mitral valve leaflets appear thickened, but open well. * There is no mitral valve stenosis. * There is trace mitral regurgitation. Tricuspid Valve * The tricuspid valve is not well visualized, but is grossly normal. * There is trace tricuspid regurgitation. Aortic Valve * The aortic valve opens well. * The aortic valve is tricuspid. The leaflet thickness if normal. There is no aortic stenosis, and no significant insufficiency. * No hemodynamically significant valvular aortic stenosis. Pulmonic Valve * The pulmonary valve is inadequately visualized, but the Doppler data is adequate for interpretation. * Pulmonic stenosis is absent. * Trace pulmonic valvular regurgitation. Great Vessels * The aortic root and proximal ascending aorta are normal sized. * No Doppler or imaging evidence of an aortic coarctation. Pericardium/Pleural * There is no pericardial effusion. Great Vessels * IVC 1.3 cm Left Ventricular Diastolic Function * Grade I diastolic dysfunction, (abnormal relaxation pattern). MMode 2D Measurements and Calculations IVSd 0.96 cm IVSs 1.3 cm LVIDd 3.1 cm LVIDs 2.1 cm LVPWd 0.75 cm LVPWs 1.2 cm IVS/LVPW 1.3 FS 32.1 % EDV(Teich) 38.4 ml ESV(Teich) 14.7 ml EF(Teich) 61.8 % EDV(cubed) 30.3 ml ESV(cubed) 9.5 ml EF(cubed) 68.7 % % IVS thick 40.7 % % LVPW thick 58.6 % LV mass(C)d 68.7 grams LV mass(C)dI 42.7 grams/m\S\2 LV mass(C)s 76.3 grams LV mass(C)sI 47.4 grams/m\S\2 SV(Teich) 23.7 ml SI(Teich) 14.8 ml/m\S\2 SV(cubed) 20.8 ml SI(cubed) 12.9 ml/m\S\2 ACS 1.4 cm LA dimension 3.7 cm asc Aorta Diam 3.3 cm LVOT diam 1.5 cm LVOT area 1.8 cm\S\2 LVAd ap4 34.2 cm\S\2 LVLd ap4 8.6 cm EDV(MOD-sp4) 109.9 ml EDV(sp4-el) 115.2 ml LVAs ap4 18.4 cm\S\2 LVLs ap4 6.5 cm ESV(MOD-sp4) 43.5 ml ESV(sp4-el) 44.0 ml EF(MOD-sp4) 60.4 % EF(sp4-el) 61.7 % LVAd ap2 27.2 cm\S\2 LVLd ap2 7.6 cm EDV(MOD-sp2) 78.2 ml EDV(sp2-el) 82.6 ml LVAs ap2 14.4 cm\S\2 LVLs ap2 5.6 cm ESV(MOD-sp2) 30.3 ml ESV(sp2-el) 31.4 ml EF(MOD-sp2) 61.3 % EF(sp2-el) 62.0 % LVLd %diff -12.83 % EDV(MOD-bp) 96.4 ml LVLs %diff -15.71 % ESV(MOD-bp) 37.3 ml EF(MOD-bp) 61.3 % SV(MOD-sp4) 66.4 ml SI(MOD-sp4) 41.2 ml/m\S\2 SV(MOD-sp2) 47.9 ml SI(MOD-sp2) 29.8 ml/m\S\2 SV(MOD-bp) 59.1 ml SI(MOD-bp) 36.7 ml/m\S\2 SV(sp4-el) 71.1 ml SI(sp4-el) 44.2 ml/m\S\2 SV(sp2-el) 51.2 ml SI(sp2-el) 31.8 ml/m\S\2 Doppler Measurements and Calculations MV E max luma 73.9 cm/sec MV A max luma 114.3 cm/sec MV E/A 0.65 MV dec time 0.27 sec Ao V2 max 118.9 cm/sec Ao max PG 5.7 mmHg Ao max PG (full) 2.4 mmHg CHRISTIANO(V,A) 1.4 cm\S\2 CHRISTIANO(V,D) 1.4 cm\S\2 LV V1 max PG 3.3 mmHg LV V1 max 90.6 cm/sec PA V2 max 75.0 cm/sec PA max PG 2.2 mmHg
[2016-11-29 15:15] VITALS: BP 103/62; PULSE 73; TEMP 37.1; O2SAT 94
--- NOTE | 2016-11-29 15:16 | Pharmacy Progress Note ---
Glycemic: Assessment & Plan Date of Service Nov 29, 2016. Assessment & Plan * The patient is currently receiving 0 units of insulin per day. BSGs ranging 73 - 112 mg/dl over the past 24hrs. Pt had a BSG of 229 mg/dl on admission yesterday with improvement in BSGs upon hydration. * Will consider signing off consult if BSGs remain controlled the next 24 hours. CONTINUE CURRENT INPATIENT GLYCEMIC REGIMEN: * Basal insulin: none * Correctional Insulin: Novolog Correction per scale ACHS Goal Range: Low 120 mg/dL - High 140 mg/dL Correction Factor: 40 mg/dL/unit * Prandial insulin: none * Continue to hold oral agents BSGs continue to improve, no changes needed to inpatient regimen at this time. Pharmacy will continue to monitor patient daily and write orders per [facility] inpatient glycemic control protocol. Thanks. * Please note that the plan above was derived based on current level of insulin resistance and hospital stress. These recommendations are appropriate for inpatient admission only. Plan of care upon discharge will need to be reassessed to avoid potential outpatient hypo/hyperglycemia.
--- NOTE | 2016-11-29 16:47 | Discharge Instructions ---
Discharge Instructions Admission Admission Date: Nov 28, 2016 at 13:05 Admission Diagnosis: Pre-Syncope. Discharge Care Plan - Problem: Medical Problems: (1) Altered mental status (2) Near syncope Care Plan - Goal(s): Improve function Care Plan - Instructions: Recommended Home Diet: 1800 Miguel Wt Reduction, Type 1 Diabetes AHA Laboratory Results Test Results: Hemoglobin A1c Test 11/29/16 06:00 Range/Units Lipid Panel Test 10/12/16 09:07 Range/Units Triglycerides Level 164 H 0-150 mg/dl Cholesterol Level 175 0-200 mg/dl HDL Cholesterol 63 mg/dl Cholesterol/HDL Ratio 2.8 LDL Cholesterol, Calculated 79 mg/dl Tahira Manuel Recommendations: Call your doctor if: * Temperature above 101 degrees * Pain not relieved by pain medicine ordered * There is increased drainage or redness from any incision * You have any unanswered questions or concerns. Your Doctors Instructions noted above were prepared by provider Mark Ramos.
--- NOTE | 2016-11-29 16:58 | Discharge Summary ---
Discharge Summary Admission Date: Nov 28, 2016 at 13:05 Discharge Date: Nov 29, 2016 Discharge Disposition: Home Problems/Secondary Diagnoses: Presyncope Hx of CVA Dyslipidemia HTN DMII hypothyroidism Medication Reconciliation Continued Medications: Atorvastatin (Lipitor) 20 Mg Tab 20 MG PO QAM, TAB Biotin (Biotin) 1 Mg Cap 1 TAB PO QAM Calcium Carbonate-Vitamin D (Caltrate 600+D) 1 Chw Chw 1 TAB PO QAM Cholecalciferol (Vitamin D-1000) 1,000 Unit Tab 1 TAB PO QAM Clopidogrel Bisulfate (Clopidogrel) 75 Mg Tab 1 TAB PO QAM Cranberry (Vaccinium Macrocarp (Cranberry) 500 Mg Cap 1 TAB PO QAM Fish Oil ([place]-3) 1 Ea Cap 1 CAP PO QAM Levothyroxine Sodium (Synthroid) 150 Mcg Tab 150 MCG PO QAM Metformin Hcl (Glucophage Ext Rel) 1,000 Mg Tab 500 MG PO BID Misc Natural Products (Lutein 20) 1 Cap Cap 1 TAB PO QAM Multivitamin (Multivitamin) Tab 1 TAB PO QAM Oxycodone HCl (Oxycodone HCl) 5 Mg Tab 5 MG PO Q6 PRN for Pain, #30 TAB Pantoprazole (Protonix) 20 Mg Tab 20 MG PO QAM Polyethylene Glycol 3350 (Miralax) 1 Pow Pow 17 GM PO DAILY PRN for Constipation Discontinued Medications: Losartan Potassium (Cozaar) 50 Mg Tab 1 TAB PO DAILY for 30 Days, #30 TAB 5 Refills Referrals At Discharge Follow up Referrals: Grocery Carrier Referral - Within 1-2 Weeks with Mathew Reeves M.D. Neurologist Referral - Within 1-2 Weeks @ [facility] with Nolan Crow M.D. rule out seizure disorder Discharge Exam Review of Systems: Constitutional: No chills, No fatigue, No fever, No problem reported, No sweats, No weakness, No weight loss Eyes: No diplopia, No discharge, No eye pain, No problem reported, No redness, No worsening of vision ENT: No dental problems, No hearing loss, No nasal symptoms, No problem reported, No sore throat, No tinnitus, No trouble swallowing, No unusual epistaxis Respiratory: No cough, No dyspnea at rest, No dyspnea on exertion, No hemoptysis, No problem reported, No shortness of breath, No sputum, No wheezing Cardiovascular: No PND, No chest pain, No claudication, No edema, No orthopnea, No palpitations, No problem reported Abdomen: No GI bleeding, No constipation, No diarrhea, No nausea, No pain, No problem reported, No vomiting Musculoskeletal: No calf pain, No joint pain, No muscle pain, No problem reported, No swelling Genitourinary - Female: No dysmenorrhea, No dysuria, No hematuria, No menorrhagia, No metrorrhagia, No , No problem reported, No rash, No urinary frequency, No urinary incontinence, No urinary retention, No urinary urgency, No vaginal bleeding, No vaginal discharge, No vaginal itching, No vulvodynia Neurologic: No balance problems, No memory loss, No numbness/tingling, No paralysis, No problem reported, No vertigo, No weakness Psychiatric: No anhedonism, No anxiety, No depression symptoms, No insomnia , No problem reported, No substance abuse Endocrine: No excessive thirst, No excessive urination, No fatigue, No problem reported Hematologic / Lymphatic: No abnormal bleeding/bruising, No clotting problems , No night sweats, No problem reported, No swollen lymph nodes Integumentary: No bleeding, No color change, No itch, No new/changing skin lesions, No problem reported, No rash Hospital Course 71 years old female with PMHx of DMII on oral hypoglycemia, Dyslipidemia, hypothyroidism and left paraventricular region CVA in 01/2016 presented with presyncope she was admitted to telemtry for her Presyncope I suspected a cardiac event consulted Dr. Reeves who recommended a loop recorder as an out patient obtained 2D echo * Conclusions -- * 1. Normal LV size. Normal LV wall thickness. Sigmoid septum. * 2. Normal LV systolic function. LVEF 60-65%. No regional wall motion abnormalities. * 3. Normal RV size and function. * 4. Thickened, sclerotic mitral valve with trace regurgitation. * 5. Grade 1 diastolic dysfunction * 6. Compared with prior study on 01/29/2016: No significant change Held losartan as her BP is border line low, stayed border line low, so she was discharged off losartan, will monitor her BP at home because of Hx of CVA, continue plavix/ASA MRI brain was done and showed no acute event normal TSH, continued same synthroid dose she was discharged home today This includes examination of the patient, discharge planning, medication reconciliation, and communication with other providers. Discharge Instructions Please refer to the electronic Patient Visit Report (Discharge Instructions) for additional information.
[2016-11-29 17:04] VITALS: BP 103/62; PULSE 73; TEMP 37.1; O2SAT 94
[2016-11-30 07:00] LABS: ESTIMATED AVERAGE GLUCOSE 111 mg/dl; HA1C FLAG Normal (Normal)
== END 2016-11-29 18:08 | disposition home or self-care (01) | DRG 312 ==
LOC: ENRESERVTM → ENRESERVDT → C.EDB 10:16 → C.MED 13:05
PROVIDERS: ADMIT Internal Medicine; ATTEND Internal Medicine
DX: R55 Syncope and collapse (principal); I10 Essential (primary) hypertension; E11.9 Type 2 diabetes mellitus without complications; E03.9 Hypothyroidism, unspecified; E78.5 Hyperlipidemia, unspecified; R41.82 Altered mental status, unspecified; E78.00 Pure hypercholesterolemia, unspecified; Z86.73 Personal history of transient ischemic attack (TIA), and cerebral infarction without residual deficits; Z79.899 Other long term (current) drug therapy; Z79.02 Long term (current) use of antithrombotics/antiplatelets; Z79.84 Long term (current) use of oral hypoglycemic drugs; Z79.891 Long term (current) use of opiate analgesic

== ENCOUNTER 2016-12-14 13:53 | Emergency (ER) | payer BC ==
[~2016-12-14] VITALS: Ht 165.1 cm; Wt 62.1 kg
[~2016-12-14 13:53] MED LIST changes: -LOSA50TA6 PO
[2016-12-14 13:57] VITALS: TEMP 36.4; Ht 165.1 cm; Wt 62.1 kg
--- NOTE | 2016-12-14 14:53 | EMERGENCY ROOM VISIT NOTE ---
ED Visit Note First contact with patient: 14:01 I have seen and examined this patient with Joseluis Esposito and generally agree with the treatment plan as discussed. Problem List Surgical Problems: (1) Hx of appendectomy Status: Chronic Current/Historical Medications Scheduled Biotin (Biotin), 1 TAB PO QAM Calcium Carbonate-Vitamin D (Caltrate 600+D), 1 TAB PO QAM Cholecalciferol (Vitamin D-1000), 1 TAB PO QAM Clopidogrel Bisulfate (Clopidogrel), 1 TAB PO QAM Cranberry (Vaccinium Macrocarp (Cranberry), 1 TAB PO QAM Fish Oil ([place]-3), 1 CAP PO QAM Levothyroxine Sodium (Synthroid), 150 MCG PO QAM Metformin Hcl (Glucophage Ext Rel), 500 MG PO BID Misc Natural Products (Lutein 20), 1 TAB PO QAM Multivitamin (Multivitamin), 1 TAB PO QAM Pantoprazole (Protonix), 20 MG PO QAM Scheduled PRN Polyethylene Glycol 3350 (Miralax), 17 GM PO DAILY PRN for Constipation Allergies Coded Allergies: No Known Allergies (Unverified , 11/28/16) Vital Signs Date Time Temp Pulse Resp B/P Pulse Ox O2 Delivery O2 Flow Rate FiO2 12/14/16 13:57 36.4 97 18 170/79 97 Room Air Departure Information Referrals Heidi Lim DO (PCP) Patient Instructions My [facility]
--- NOTE | 2016-12-14 15:43 | DIAGNOSTIC IMAGING REPORT ---
LEFT HAND MIN 3 VIEWS ROUTINE CLINICAL HISTORY: Fell, left side pain trauma. Pain. COMPARISON: None. DISCUSSION: Generalized degenerative change. Osteopenia. No well-defined acute bony abnormality. Mild soft tissue edema. IMPRESSION: Soft tissue edema. Generalized degenerative change. Osteopenia. Electronically signed by: Benitez Guzman M.D. 12/14/2016 3:41 PM Dictated Date/Time: 12/14/2016 3:38 PM
--- NOTE | 2016-12-14 15:44 | DIAGNOSTIC IMAGING REPORT ---
LEFT SHOULDER MIN 2 VIEWS ROUTINE CLINICAL HISTORY: Left upper extremity pain s/p fall trauma. Pain. COMPARISON: 10/26/2016 DISCUSSION: Anatomic alignment status post total left shoulder replacement. Good contact between prosthetic and underlying bone. No evidence for fracture. There is no evidence for soft tissue swelling. IMPRESSION: No acute bony abnormality. Operative changes consistent with a prior total left shoulder replacement Electronically signed by: Benitez Guzman M.D. 12/14/2016 3:42 PM Dictated Date/Time: 12/14/2016 3:42 PM
--- NOTE | 2016-12-14 15:45 | DIAGNOSTIC IMAGING REPORT ---
LEFT HUMERUS MIN 2 VIEWS ROUTINE CLINICAL HISTORY: Fell, left side pain trauma. Pain. COMPARISON: 10/19/2016 DISCUSSION: Left shoulder total joint replacement. The study is again position. No evidence for fracture. There is no evidence for soft tissue swelling. IMPRESSION: No acute bony abnormality status post total left shoulder replacement Electronically signed by: Benitez Guzman M.D. 12/14/2016 3:43 PM Dictated Date/Time: 12/14/2016 3:43 PM
--- NOTE | 2016-12-14 15:46 | DIAGNOSTIC IMAGING REPORT ---
LEFT FOREARM 2 VIEWS CLINICAL HISTORY: Fall with left arm pain. FINDINGS: AP and lateral views of the left forearm are obtained. No prior studies are available for comparison at the time of dictation. The skeletal structures are osteopenic. No definite fracture is seen in the left forearm. There is marked soft tissue edema present throughout the imaged left upper extremity. The wrist joint is grossly preserved. An elbow joint effusion is suspected. IMPRESSION: 1. There is no definite radiographic evidence of fracture in the left forearm. 2. Question an elbow joint effusion. This could be seen in the setting of occult radial head fracture. Consider dedicated elbow views for further assessment. 3. Significant soft tissue edema is present throughout the imaged left upper extremity. Electronically signed by: Andrez Youngblood M.D. 12/14/2016 3:44 PM Dictated Date/Time: 12/14/2016 3:41 PM
--- NOTE | 2016-12-14 15:46 | DIAGNOSTIC IMAGING REPORT ---
LEFT RIBS UNILATERAL WITH PA CHEST CLINICAL HISTORY: Fell, left side pain COMPARISON STUDY: Chest radiograph November 28, 2016. FINDINGS: There is no pneumothorax or pleural effusion. Cardiac size is normal. Mediastinal contours are normal. There is levoscoliosis of the visualized portions of the lumbar spine. A left shoulder arthroplasty is better depicted on the left shoulder radiographs. There is subtle cortical irregularity of the lateral left fifth rib. IMPRESSION: No pneumothorax. Suspected acute minimally displaced fracture of the lateral left fifth rib. Electronically signed by: Caleb Castañeda M.D. 12/14/2016 3:45 PM Dictated Date/Time: 12/14/2016 3:40 PM
--- NOTE | 2016-12-14 16:49 | DIAGNOSTIC IMAGING REPORT ---
LEFT ELBOW MIN 3 VIEWS ROUTINE CLINICAL HISTORY: Left elbow pain status post trauma COMPARISON: None. DISCUSSION: The bones are osteopenic. The study is significantly limited from a positioning standpoint. There is a suspected small joint effusion. IMPRESSION: 1. Technically limited study from positioning standpoint 2. Suspected small joint effusion 3. No acute fractures or dislocations are visualized. Electronically signed by: Danilo Galo M.D. 12/14/2016 4:47 PM Dictated Date/Time: 12/14/2016 4:45 PM
[2016-12-14] MEDS ORDERED: OXYC1TAB3 PO ×2 (17:18→17:21)
--- NOTE | 2016-12-14 17:24 | EMERGENCY ROOM VISIT NOTE ---
History First contact with patient: 14:01 Chief Complaint: FALL Stated Complaint: FALL, LEFT ARM AND SHOULDER PAIN History of Present Illness The patient is a 71 year old female who presents to the Emergency Room via private vehicle accompanied by with complaints of "fall, left arm and shoulder pain". Patient states that around 10:45 AM she was at home when she accidentally tripped over a pair of shoes and landed on her left shoulder when striking the floor. She states that she fell forward striking left shoulder. The arms were not outstretched. She notes pain in the left ribs, left fifth digit and is not able to move her left shoulder secondary to recent surgery. She has shoulder replacement roughly 9 weeks ago. There has been no dizziness since the fall, loss of consciousness, head trauma, neck pain. Patient states that she takes Tylenol 4 times daily. She is on Plavix. Patient has diabetes and is on metformin. She notes pain in the left rib cage and left finger. There is no shoulder or arm pain. Review of Systems A complete 6-point Review of Systems was discussed with the patient, with pertinent positives and negatives listed in the History of Present Illness. All remaining Review of Systems questions can be considered negative unless otherwise specified. Past Medical/Surgical History Medical Problems: (1) Fracture of humeral head, left, closed (2) Pre-syncope (3) Stroke Surgical Problems: (1) Hx of appendectomy Family History Diabetes mellitus heart disease Social History Smoking Status: Never Smoker Alcohol Use: occasionally Drug Use: none Marital Status: Housing Status: lives with family Occupation Status: retired Current/Historical Medications Scheduled Biotin (Biotin), 1 TAB PO QAM Calcium Carbonate-Vitamin D (Caltrate 600+D), 1 TAB PO QAM Cholecalciferol (Vitamin D-1000), 1 TAB PO QAM Clopidogrel Bisulfate (Clopidogrel), 1 TAB PO QAM Cranberry (Vaccinium Macrocarp (Cranberry), 1 TAB PO QAM Fish Oil ([place]-3), 1 CAP PO QAM Levothyroxine Sodium (Synthroid), 150 MCG PO QAM Metformin Hcl (Glucophage Ext Rel), 500 MG PO BID Misc Natural Products (Lutein 20), 1 TAB PO QAM Multivitamin (Multivitamin), 1 TAB PO QAM Pantoprazole (Protonix), 20 MG PO QAM Scheduled PRN Oxycodone Ir (Roxicodone Ir), 1-2 TAB PO Q4H PRN for Pain Polyethylene Glycol 3350 (Miralax), 17 GM PO DAILY PRN for Constipation Allergies Coded Allergies: No Known Allergies (Unverified , 11/28/16) Physical Exam Vital Signs Date Time Temp Pulse Resp B/P Pulse Ox O2 Delivery O2 Flow Rate FiO2 12/14/16 17:37 85 18 156/84 97 Room Air 12/14/16 16:06 95 18 126/78 97 Room Air 12/14/16 13:57 36.4 97 18 170/79 97 Room Air Physical Exam VITAL SIGNS - Vital signs and nursing notes were reviewed. Patient is afebrile , she is hypertensive at 170/79, she is not tachycardic and saturating well on room air at 97%. GENERAL -71-year-old female appearing her stated age who is in no acute distress. Communicates well with provider and answers questions appropriately. SKIN - Without rashes. No breaks in the integument. HEAD - NC/AT. No evidence of trauma to the head. EYES - PERRL with EOMI bilaterally. Sclera anicteric. Palpebral conjunctiva pink and moist with no injection noted. EARS - No deformities of external structures noted on gross examination bilaterally. NOSE - Midline and without cyanosis. No epistaxis or purulent drainage noted. MOUTH/OROPHARYNX - Without perioral cyanosis. NECK - Neck with FROM. Supple to palpation. No C-spine tenderness. LUNGS - Chest wall symmetric without accessory muscle use, intercostals retractions, or central cyanosis. Normal vesicular breath sounds CTA B/L. No wheezes, rales, or rhonchi appreciated. CARDIAC - RRR with S1/S2. No murmur, rubs, or gallops appreciated. EXTREMITIES - No clubbing or peripheral cyanosis. No pretibial edema present. +3 /5 left radial pulse. +5/5 strength noted in UE/LE bilaterally. Upper extremity strength was assessed via microsoft dynamics developer strength which was symmetrical and normal. There is edema noted to the left upper extremity which the patient states has been since her surgery and her surgeon is aware of this. MUSCULOSKELETAL: There is tenderness to palpation overlying the left mid section of ribs. Pinpoint over 6 or seventh ribs. There is also tenderness over the left fifth digit. There is minimal to no tenderness of the left shoulder, left humerus, left elbow or left forearm or left wrist. Vascularly and neurologically intact. Range of motion was not elicited of the left shoulder secondary to recent surgery. NEUROLOGIC - Cranial nerves II through XII grossly intact. Sensory intact to light touch throughout. PSYCH - A&Ox3 and cooperates fully with examiner. Pt is very pleasant and interacts well with examiner. Medical Decision & Procedures ER Provider Diagnostic Interpretation: LEFT ELBOW MIN 3 VIEWS ROUTINE CLINICAL HISTORY: Left elbow pain status post trauma COMPARISON: None. DISCUSSION: The bones are osteopenic. The study is significantly limited from a positioning standpoint. There is a suspected small joint effusion. IMPRESSION: 1. Technically limited study from positioning standpoint 2. Suspected small joint effusion 3. No acute fractures or dislocations are visualized. Electronically signed by: Danilo Galo M.D. 12/14/2016 4:47 PM Dictated Date/Time: 12/14/2016 4:45 PM LEFT FOREARM 2 VIEWS CLINICAL HISTORY: Fall with left arm pain. FINDINGS: AP and lateral views of the left forearm are obtained. No prior studies are available for comparison at the time of dictation. The skeletal structures are osteopenic. No definite fracture is seen in the left forearm. There is marked soft tissue edema present throughout the imaged left upper extremity. The wrist joint is grossly preserved. An elbow joint effusion is suspected. IMPRESSION: 1. There is no definite radiographic evidence of fracture in the left forearm. 2. Question an elbow joint effusion. This could be seen in the setting of occult radial head fracture. Consider dedicated elbow views for further assessment. 3. Significant soft tissue edema is present throughout the imaged left upper extremity. Electronically signed by: Andrez Yougnblood M.D. 12/14/2016 3:44 PM Dictated Date/Time: 12/14/2016 3:41 PM LEFT HAND MIN 3 VIEWS ROUTINE CLINICAL HISTORY: Fell, left side pain trauma. Pain. COMPARISON: None. DISCUSSION: Generalized degenerative change. Osteopenia. No well-defined acute bony abnormality. Mild soft tissue edema. IMPRESSION: Soft tissue edema. Generalized degenerative change. Osteopenia. Electronically signed by: Benitez Guzman M.D. 12/14/2016 3:41 PM Dictated Date/Time: 12/14/2016 3:38 PM LEFT HUMERUS MIN 2 VIEWS ROUTINE CLINICAL HISTORY: Fell, left side pain trauma. Pain. COMPARISON: 10/19/2016 DISCUSSION: Left shoulder total joint replacement. The study is again position. No evidence for fracture. There is no evidence for soft tissue swelling. IMPRESSION: No acute bony abnormality status post total left shoulder replacement Electronically signed by: Benitez Guzman M.D. 12/14/2016 3:43 PM Dictated Date/Time: 12/14/2016 3:43 PM LEFT RIBS UNILATERAL WITH PA CHEST CLINICAL HISTORY: Fell, left side pain COMPARISON STUDY: Chest radiograph November 28, 2016. FINDINGS: There is no pneumothorax or pleural effusion. Cardiac size is normal. Mediastinal contours are normal. There is levoscoliosis of the visualized portions of the lumbar spine. A left shoulder arthroplasty is better depicted on the left shoulder radiographs. There is subtle cortical irregularity of the lateral left fifth rib. IMPRESSION: No pneumothorax. Suspected acute minimally displaced fracture of the lateral left fifth rib. Electronically signed by: Caleb Castañeda M.D. 12/14/2016 3:45 PM Dictated Date/Time: 12/14/2016 3:40 PM LEFT SHOULDER MIN 2 VIEWS ROUTINE CLINICAL HISTORY: Left upper extremity pain s/p fall trauma. Pain. COMPARISON: 10/26/2016 DISCUSSION: Anatomic alignment status post total left shoulder replacement. Good contact between prosthetic and underlying bone. No evidence for fracture. There is no evidence for soft tissue swelling. IMPRESSION: No acute bony abnormality. Operative changes consistent with a prior total left shoulder replacement Electronically signed by: Benitez Guzman M.D. 12/14/2016 3:42 PM Dictated Date/Time: 12/14/2016 3:42 PM Medical Decision Patient was seen and evaluated as above. After obtaining a thorough history and physical examination radiographs were obtained as noted above. These were obtained secondary to tenderness and concern over these regions. Patient did not strike her head, have loss of consciousness or complain of any neck pain nor did she have any C-spine tenderness. Radiographs were unremarkable for acute process of the left upper extremity after verifying dedicated left elbow views. Minimally displaced acute rib fracture. Patient was educated upon these findings. She does not want anything for pain as she indicated she would take Tylenol and when I asked about how much she would take I was concerned that this may be too much therefore she was prescribed OxyIR. She is to follow- up with her orthopedic surgeon by calling their office later this week as there is marked edema of the left upper extremity which the patient notes has been chronic and is not worsened since her previous visit with the orthopedic surgeon. She was fitted with a metal splint for the finger in case of occult fracture. She was told she may wear her shoulder sling for the next 1-2 days for comfort. She noted that this was discontinued by her orthopedic surgeon this past Wednesday. She was also given an incentive spirometer and instructed upon use to decrease chance of pneumonia. She was again educated upon her injuries. She was educated upon management, was educated upon worrisome symptoms in which to return, had questions answered prior to discharge and was discharged home in good condition. In the evaluation and treatment of this patient, the following differential diagnoses were considered: Shoulder Contusion, Shoulder Fracture, Shoulder Dislocation, Thoracic Outlet Syndrome, Adhesive Capsulitis, Rotator Cuff Tear, Proximal Clavicle Head Fracture, Apical Pneumonia, Pneumothorax, Hemothorax, hand fracture, left upper extremity fracture, among others or TB. [facility] Drug Monitoring Program Search Results: patient reviewed within database, no issues identified Impression Primary Impression: Fall Additional Impressions: Contusion of multiple sites Closed rib fracture Contusion of finger, left Departure Information Dispostion Home / Self-Care Condition GOOD Prescriptions Oxycodone Ir (Roxicodone Ir) 5 Mg Tab 1-2 TAB PO Q4H Y for Pain, #15 TAB For Initial Treatment Prov: Joseluis Esposito PA-C 12/14/16 Referrals Heidi Lim DO (PCP) Patient Instructions My [facility] Additional Instructions You have been treated in the Emergency Department for a broken left rib, left arm injury and finger injury. You have been prescribed Oxy IR to be used for pain control. This is a narcotic medication. You cannot drive or consume alcohol while on this medicine. This medicine should only be used for pain that cannot be controlled with over-the- counter pain medicines. Please take this with a stool softener. Please use your arm sling for the next 1-2 days. Please wear the finger splint until evaluated by orthopedics. For pain control, you can use the following [id number] medicines (if >12 yo): - Regular strength (325mg/tab) Tylenol (acetaminophen) 2 tabs every 4-6 hours as needed. Do not exceed 12 tablets in a 24 hour period. Avoid taking more than 3 grams (4000 mg) of Tylenol per day. This includes any other sources of acetaminophen you may take on a regular basis. DO NOT EXCEED 3000mg PER DAY!!! If this is an acute injury, ice can be applied to the area of pain for the first 3 days to help decrease pain and inflammation. After the first 3 days, a heating pad can be used over the area for continued soothing relief. To minimize your discomfort, you can hug a pillow while coughing or sneezing. Additionally, you should continue to force yourself to take nice, deep breaths. Full expansion of the lungs is necessary to prevent the accumulation of fluid in the lung tissue and development of pneumonia. You should schedule a follow-up appointment in 2-3 days with your Primary Care Provider for further evaluation and treatment of your pain Please call Dr. Rondon first thing tomorrow morning to request follow-up for your arm. Please tell them you were seen in the emergency department and need to be seen as soon as possible by his office. Please use the Incentive Spirometer several times per hour while awake to help prevent the development of pneumonia. Return to the Emergency Department if your current symptoms worsen despite treatment course outlined above, or if you develop any of the following symptoms : intractable pain despite aforementioned treatment course, development of a wet cough, bloody cough, fever, chills, or increased shortness of breath. Please return to emergency department with any new/concerning symptoms. Problem Qualifiers Primary Impression: Fall Encounter type: initial encounter Qualified Codes: W19.XXXA - Unspecified fall, initial encounter Additional Impressions: Closed rib fracture Encounter type: initial encounter Rib fracture type: single rib Laterality : left Qualified Codes: S22.32XA - Fracture of one rib, left side, initial encounter for closed fracture Contusion of finger, left Encounter type: initial encounter Finger: little finger Damage to nail status: without damage Qualified Codes: S60.052A - Contusion of left little finger without damage to nail, initial encounter
[2016-12-14 17:37] VITALS: BP 156/84; PULSE 85; O2SAT 97
== END 2016-12-14 17:44 | disposition home or self-care (01) ==
LOC: C.EDB 13:55 → C.EDD 17:44
DX: S50.12XA Contusion of left forearm, initial encounter (principal); S22.32XA Fracture of one rib, left side, initial encounter for closed fracture; S60.052A Contusion of left little finger without damage to nail, initial encounter; M25.512 Pain in left shoulder; W01.0XXA Fall on same level from slipping, tripping and stumbling without subsequent striking against object, initial encounter; Y92.009 Unspecified place in unspecified non-institutional (private) residence as the place of occurrence of the external cause; Z96.612 Presence of left artificial shoulder joint; Z79.01 Long term (current) use of anticoagulants; E11.9 Type 2 diabetes mellitus without complications; Z86.73 Personal history of transient ischemic attack (TIA), and cerebral infarction without residual deficits; Z79.84 Long term (current) use of oral hypoglycemic drugs; Z83.3 Family history of diabetes mellitus

== ENCOUNTER → 2016-12-29 | Outpatient (CLI) | payer BC ==
[~2016-12-29] MED LIST changes: -ATOR-54 PO; +OXYC1TAB3 PO; -RXC5 PO
--- NOTE | 2017-01-01 16:07 | EEG Procedure Note ---
EEG Procedure Note Date of Service Dec 29, 2016. Start / End Times Start Time: 2:14 PM End Time: 2:34 PM Referring Physician Kiera Pompa History This is a 71-year-old female with episode of syncope. EEG for further evaluation possible seizure etiology. Home Medication List Scheduled Biotin (Biotin), 1 TAB PO QAM Calcium Carbonate-Vitamin D (Caltrate 600+D), 1 TAB PO QAM Cholecalciferol (Vitamin D-1000), 1 TAB PO QAM Clopidogrel Bisulfate (Clopidogrel), 1 TAB PO QAM Cranberry (Vaccinium Macrocarp (Cranberry), 1 TAB PO QAM Fish Oil ([place]-3), 1 CAP PO QAM Levothyroxine Sodium (Synthroid), 150 MCG PO QAM Metformin Hcl (Glucophage Ext Rel), 500 MG PO BID Misc Natural Products (Lutein 20), 1 TAB PO QAM Multivitamin (Multivitamin), 1 TAB PO QAM Pantoprazole (Protonix), 20 MG PO QAM Scheduled PRN Oxycodone Ir (Roxicodone Ir), 1-2 TAB PO Q4H PRN for Pain Polyethylene Glycol 3350 (Miralax), 17 GM PO DAILY PRN for Constipation Description This is a 21 electrode EEG with a single channel dedicated to limited EKG. The electrodes were placed in accordance with the International 10-20 system. At the start of the recording the patient was in an awake state. Background was well organized and composed of symmetric mixed alpha and beta frequencies. There was a symmetric well-formed moderate amplitude 10 Hz posterior dominant rhythm that was reactive to eye opening and closure. Hyperventilation was not done. Intermittent photic stimulation at various frequencies produced no abnormalities. Sleep was indicated by vertex waves and symmetric sleep spindles. Interpretation This is a normal awake and asleep routine EEG. There was no electrographic seizures or epileptiform discharges. Clinical Correlation A normal EEG does not rule out epilepsy if there is a strong clinical suspicion.
== END | disposition home or self-care (01) ==
LOC: C.NEUR 13:53
PROVIDERS: ATTEND Psychiatry & Neurology Neurology
DX: R55 Syncope and collapse (principal)

== ENCOUNTER 2017-01-05 11:25 | Day surgery (SDC) | payer BC ==
[~2017-01-05] VITALS: Ht 165.1 cm; Wt 62.1 kg
[~2017-01-05 11:25] MED LIST changes: +CEFAZOLIN 1000MG/55 ML D5W IV SCH; +LACTATED RINGER'S 1000ML 1,000 ML IV SCH; +PATIENT'S HEIGHT AND/OR WEIGHT NEEDED SCH
[2017-01-05 12:17] VITALS: BP 159/73; PULSE 81; TEMP 36.7; O2SAT 96; Ht 165.1 cm; Wt 62.1 kg
[2017-01-05] MEDS ORDERED: LIDOCAINE HCL 1% 20 ML VIAL ONE (13:01)
[2017-01-05] MEDS ORDERED: BACITRACIN OINT 0.9 GM PKT ONE (13:02)
--- NOTE | 2017-01-05 13:10 | History & Physical Bridge Note ---
H&P Re-Evaluation Bridge Note: I have examined the patient, reviewed the History & Physical and in the interval since the performance of the History & Physical I have noted the following changes of clinical significance: No changes noted. I reviewed the indications, procedure, risks and alternatives with patient and her and they understand and she agrees proceed. Consent obtained.
--- NOTE | 2017-01-05 13:14 | Procedure Note ---
Pre-Mod Sedation Assessment General Date of Moderate Sedation: Jan 05, 2017. Vital Signs: Vital Signs Past 12 Hours Date Time Temp Pulse Resp B/P Pulse Ox O2 Delivery O2 Flow Rate FiO2 01/05/17 12:17 36.7 81 18 159/73 96 Room Air Review Cardiovascular: regular rate, rhythm Abdomen: normal bowel sounds Lungs: lungs clear Pre-Sedation Airway Assessment Oral Cavity: Capped Teeth Smoking Status: Never Smoker Procedure Planning Contraindications-for Mod Sed: None Yes Notes The planned sedation has been discussed with the patient and consent obtained. I have identified the patient, determined the appropriateness of sedation and have assessed the patient immediately prior to the procedure. All medicine(s) and interventions are by my order.
--- NOTE | 2017-01-05 13:42 | Cardiology Procedure Brief Nt ---
Preliminary Cardiology Note Procedure Date Jan 05, 2017. Pre-Procedure Diagnosis syncope Post-Procedure Diagnosis same Procedure(s) Performed Loop recorder implantation Chemist Instrumentation Dr. Reeves Rn Circulating(s) none Estimated Blood Loss 5 cc Preliminary Findings Good device position Recommendations Monitor briefly and discharged Specimens None Anesthesia local without sedation Complication(s) None Disposition MTU
[2017-01-05 13:45] VITALS: BP 151/66; PULSE 80; TEMP 36.9; O2SAT 95
[2017-01-05] MEDS ORDERED: ACETAMINOPHEN 325 MG TAB PO PRN (13:45)
[2017-01-05] MEDS ORDERED: KETOROLAC TROMETHAMINE 10 MG TAB PO PRN (13:45)
--- NOTE | 2017-01-05 13:55 | Discharge Instructions ---
Discharge Instructions Admission Reason for Admission: Syncope Discharge Discharge Diagnosis / Problem: Syncope Discharge Goals Goal(s): Diagnostic testing Activity Recommendations Activity Limitations: resume your previous activity . Instructions / Follow-Up Instructions / Follow-Up ACTIVITY RECOMMENDATIONS: * Do not raise affected arm over head for 2 weeks. SPECIAL CARE INSTRUCTIONS: * If bleeding occurs, apply direct pressure to area for 5 minutes. * Call your doctor if you have severe pain, fever, drainage or bleeding at site. * Keep dressing on and dry. * Keep any scheduled doctor's appointment. * Implant Card - hand held device with website information given. SKIN IRRITATION: * You may experience some redness and/or swelling in the area where radiation was administered. If any skin irritation occurs, please contact your family physician. FOLLOW UP VISIT: Dr Reeves Friday January 06, 2017 11:15 AM Current Hospital Diet Patient's current hospital diet: AHA Diet (Heart Healthy) Discharge Diet Recommended Diet: AHA Diet (Heart Healthy) Pending Studies Studies pending at discharge: no Laboratory Results Hemoglobin A1c Test 11/29/16 06:00 Range/Units Estimated Average Glucose 111 mg/dl Hemoglobin A1c 5.5 4.5-5.6 % Lipid Panel Test 10/12/16 09:07 Range/Units Triglycerides Level 164 H 0-150 mg/dl Cholesterol Level 175 0-200 mg/dl HDL Cholesterol 63 mg/dl Cholesterol/HDL Ratio 2.8 LDL Cholesterol, Calculated 79 mg/dl Medical Emergencies . Who to Call and When: Medical Emergencies: If at any time you feel your situation is an emergency, please call 911 immediately. . Non-Emergent Contact Non-Emergency issues call your: Primary Care Provider . . "Provider Documentation" section prepared by Mathew Reeves. VTE Core Measure Inpt VTE Proph given/why not?: Treatment not indicated
--- NOTE | 2017-01-05 14:07 | OPERATIVE REPORT ---
DATE OF OPERATION: 01/05/2017 PREOPERATIVE DIAGNOSIS: Syncope. POSTOPERATIVE DIAGNOSIS: Same. PROCEDURE: Loop recorder implantation. SURGEON: Mathew Reeves M.D. ANESTHESIA: Local without sedation. HISTORY OF PRESENT ILLNESS: This is a 71-year-old woman who has a history of diabetes, hyperlipidemia and CVA in January of 2016. She subsequently presented to the hospital on 11/28/2016 with an episode of unresponsiveness which occurred while she was brushing her teeth. It evidently took her a long time to recover which is confirmed by her family who was present. She had similar symptoms in January of 2016, although did not lose consciousness at that time and was found to have a subacute CVA at that time. Evaluation for the symptoms has included event monitoring for a month in the past. The episodes are very infrequent and therefore she is brought to the laboratory for a loop recorder implantation. PROCEDURE: After informed informing obtaining informed consent for the procedure, she was brought to the laboratory on the afternoon of 01/05/2017 being n.p.o. after midnight. She was identified in the laboratory, prepped and draped in standard sterile manner for a left-sided loop recorder implantation. The left prepectoral region at a location at the fourth left intercostal space 1 cm lateral to the left sternal border was anesthetized with 1% lidocaine local anesthetic. A 5 mm incision was made in this region, using the loop recorder insertion tool, the loop recorder was inserted through this incision. The incision was then closed with subcutaneous closure of 4-0 Vicryl followed by running subcuticular skin closure of 4-0 Vicryl. Steri-Strips were placed on the incision, bacitracin ointment was placed on incision and a dressing applied. The patient tolerated the procedure well, there were no complications and estimated blood loss was less than 5 mL. The patient was transferred to the ambulatory unit for brief observation and discharge. The loop recorder is a [employer] LINQ model LNQ11, serial number [id number]. Loop recorder was reprogrammed in the laboratory to final settings. YOU
[2017-01-05 14:15] VITALS: BP 149/67; PULSE 75; TEMP 36.8; O2SAT 96
== END 2017-01-05 14:25 | disposition home or self-care (01) ==
LOC: C.ACU 11:25
PROVIDERS: ATTEND Internal Medicine Cardiovascular Disease
DX: R55 Syncope and collapse (principal); E11.9 Type 2 diabetes mellitus without complications; E78.5 Hyperlipidemia, unspecified; Z86.73 Personal history of transient ischemic attack (TIA), and cerebral infarction without residual deficits; K21.9 Gastro-esophageal reflux disease without esophagitis; J30.9 Allergic rhinitis, unspecified; F41.9 Anxiety disorder, unspecified; I10 Essential (primary) hypertension; H40.9 Unspecified glaucoma; E78.00 Pure hypercholesterolemia, unspecified; I34.0 Nonrheumatic mitral (valve) insufficiency; K76.0 Fatty (change of) liver, not elsewhere classified; M19.042 Primary osteoarthritis, left hand; I49.3 Ventricular premature depolarization

== ENCOUNTER → 2017-01-29 | Outpatient (CLI) | payer BC ==
[~2017-01-29] MED LIST changes: -CEFAZOLIN 1000MG/55 ML D5W IV SCH; -LACTATED RINGER'S 1000ML 1,000 ML IV SCH; -OXYC1TAB3 PO; -PATIENT'S HEIGHT AND/OR WEIGHT NEEDED SCH
[2017-01-29 11:29] LABS: ALKALINE PHOSPHATASE 97 U/L (45-117); ALT/SGPT 27 U/L (12-78); AST/SGOT 14 U/L (15-37); BLOOD UREA NITROGEN 11 mg/dl (7-18); CALCIUM 9.1 mg/dl (8.5-10.1); CARBON DIOXIDE 29 mmol/L (21-32); CHLORIDE 103 mmol/L (98-107); CREATININE 0.55 mg/dl (0.60-1.20); GLUCOSE 105 mg/dl (70-99); POTASSIUM 3.9 mmol/L (3.5-5.1); SODIUM 139 mmol/L (136-145)
== END | disposition home or self-care (01) ==
LOC: C.LABBC 08:28
PROVIDERS: ATTEND Family Medicine
DX: K76.0 Fatty (change of) liver, not elsewhere classified (principal); I10 Essential (primary) hypertension

== ENCOUNTER → 2017-02-24 | Outpatient (CLI) | payer BC | END | disposition home or self-care (01) | LOC: C.MAMM 13:30 | PROVIDERS: ATTEND Family Medicine | DX: M81.0 Age-related osteoporosis without current pathological fracture (principal); M85.852 Other specified disorders of bone density and structure, left thigh; S42.292A Other displaced fracture of upper end of left humerus, initial encounter for closed fracture; X58.XXXA Exposure to other specified factors, initial encounter; E03.9 Hypothyroidism, unspecified ==

== ENCOUNTER → 2017-05-13 | Outpatient (CLI) | payer BC ==
[2017-05-13 13:45] LABS: BASO % 0.5 %; BASO ABS # 0.04 K/uL (0-0.2); COMPLETE YES; EOS % 2.5 %; HEMATOCRIT 40.1 % (37-47); IG% 0.3 %; LYMPH ABS # 2.85 K/uL (1.2-3.4); MEAN CELL VOLUME 78.9 fL (80-100); MEAN CORPUSCULAR HGB CONC 32.9 g/dl (32-36); MEAN PLATELET VOLUME 9.4 fL (7.4-10.4); MONO % 9.7 %; PLATELET COUNT 230 K/uL (130-400); RED BLOOD COUNT 5.08 M/uL (4.2-5.4)
[2017-05-13 17:14] LABS: ALT/SGPT 32 U/L (12-78); AST/SGOT 18 U/L (15-37); BLOOD UREA NITROGEN 11 mg/dl (7-18); CALCIUM 9.6 mg/dl (8.5-10.1); CARBON DIOXIDE 30 mmol/L (21-32); CHLORIDE 103 mmol/L (98-107); CREATININE 0.63 mg/dl (0.60-1.20); GLUCOSE 124 mg/dl (70-99); POTASSIUM 3.7 mmol/L (3.5-5.1); SODIUM 138 mmol/L (136-145)
[2017-05-13 17:25] LABS: ALKALINE PHOSPHATASE 100 U/L (45-117)
== END | disposition home or self-care (01) ==
LOC: C.LABBC 12:15
PROVIDERS: ATTEND Psychiatry & Neurology Neurology
DX: R41.82 Altered mental status, unspecified (principal)

== ENCOUNTER → 2017-05-19 | Outpatient (CLI) | payer BC ==
--- NOTE | 2017-05-19 09:51 | DIAGNOSTIC IMAGING REPORT ---
Brain MRI WITHOUT CONTRAST HISTORY: Change in mental status MENTAL STATUS CHANGE TECHNIQUE: Multiplanar multisequence MRI of the brain was performed without the use of contrast. COMPARISON STUDY: 11/29/2016 FINDINGS: There are no areas of restricted diffusion to suggest acute infarction. The midline structures are intact. The paranasal sinuses are clear. The mastoid air cells are clear. The ventricles and sulci are within normal limits for age. There is no mass, hematoma, midline shift. The major vascular flow-voids at the skull base are well maintained. Old right cerebellar as well as left basal ganglia infarcts are unchanged. Moderate chronic small vessel change in both cerebral hemispheres is similar. IMPRESSION: No acute intracranial abnormality. Old right cerebellar and left periventricular infarct. Moderate chronic small vessel change Electronically signed by: Benitez Guzman M.D. 05/19/2017 9:50 AM Dictated Date/Time: 05/19/2017 9:45 AM
== END | disposition home or self-care (01) ==
LOC: C.MRIBC 07:03
PROVIDERS: ATTEND Psychiatry & Neurology Neurology
DX: R41.82 Altered mental status, unspecified (principal)

== ENCOUNTER → 2017-05-31 | Outpatient (CLI) | payer BC ==
[2017-05-31 12:33] LABS: CALCIUM 9.8 mg/dl (8.5-10.1); CREATININE 0.69 mg/dl (0.60-1.20)
[2017-05-31 12:48] LABS: CALCIUM URINE 7.5 mg/dl
[2017-06-01 18:24] LABS: ALBUMIN 4.5 G/DL (3.8-4.8); GAMMA GLOBULIN 0.9 G/DL (0.8-1.7); TOTAL PROTEIN 7.6 G/DL (6.2-8.3)
== END | disposition home or self-care (01) ==
LOC: C.LAB1850 10:17
PROVIDERS: ATTEND Internal Medicine Rheumatology
DX: M80.00XA Age-related osteoporosis with current pathological fracture, unspecified site, initial encounter for fracture (principal); E55.9 Vitamin D deficiency, unspecified

== ENCOUNTER → 2017-07-01 | Outpatient (CLI) | payer BC ==
--- NOTE | 2017-07-01 10:35 | DIAGNOSTIC IMAGING REPORT ---
RIGHT RIBS UNILATERAL WITH PA CHEST CLINICAL HISTORY: RIB PAIN ON RT SIDE Right COMPARISON STUDY: Chest and left rib series 12/14/2016. FINDINGS: Left shoulder prosthesis. No pneumothorax. No pleural effusions. The lungs are clear. S-shaped scoliosis of the thoracolumbar spine. No acute rib fractures. IMPRESSION: No acute rib fractures. No pneumothorax. Electronically signed by: Paul Wellington M.D. 07/01/2017 10:33 AM Dictated Date/Time: 07/01/2017 10:31 AM
== END | disposition home or self-care (01) ==
LOC: C.RAD1850 09:52
PROVIDERS: ATTEND Internal Medicine Rheumatology
DX: R07.81 Pleurodynia (principal)

== ENCOUNTER → 2017-08-06 | Outpatient (CLI) | payer BC | END | disposition home or self-care (01) | LOC: C.LAB1850 10:25 | PROVIDERS: ATTEND Internal Medicine Rheumatology | DX: M80.00XA Age-related osteoporosis with current pathological fracture, unspecified site, initial encounter for fracture (principal); E55.9 Vitamin D deficiency, unspecified; R07.81 Pleurodynia; R42 Dizziness and giddiness ==

== ENCOUNTER → 2017-08-09 | Outpatient (CLI) | payer BC ==
[2017-08-09 12:21] LABS: ALT/SGPT 27 U/L (12-78); AST/SGOT 16 U/L (15-37); BLOOD UREA NITROGEN 8 mg/dl (7-18); BUN/CREATININE RATIO 12.7 (10-20); CALCIUM 9.6 mg/dl (8.5-10.1); CARBON DIOXIDE 26 mmol/L (21-32); CHLORIDE 102 mmol/L (98-107); CHOLESTEROL 174 mg/dl (0-200); CREATININE 0.64 mg/dl (0.60-1.20); GLUCOSE 126 mg/dl (70-99); SODIUM 138 mmol/L (136-145); TRIGLYCERIDES 191 mg/dl (0-150); VERY LOW DENSITY LIPOPROT CALC 38 mg/dl
[2017-08-09 12:32] LABS: ALB/GLOB RATIO 1.1 (0.9-2); ALKALINE PHOSPHATASE 105 U/L (45-117); CHOLESTEROL/HDL RATIO 3.6; HDL CHOLESTEROL 49 mg/dl; LDL CHOLESTEROL CALCULATED 87 mg/dl; THYROID STIMULATING HORMONE 0.117 uIu/ml (0.300-4.500)
== END | disposition home or self-care (01) ==
LOC: C.LABPBG 08:31
PROVIDERS: ATTEND Family Medicine
DX: E11.9 Type 2 diabetes mellitus without complications (principal); E78.00 Pure hypercholesterolemia, unspecified; E03.9 Hypothyroidism, unspecified; I10 Essential (primary) hypertension

== ENCOUNTER → 2017-08-24 | Outpatient (CLI) | payer BC ==
--- NOTE | 2017-08-24 15:20 | MAMMOGRAPHY REPORT ---
BILATERAL DIGITAL SCREENING MAMMOGRAM WITH CAD: 08/24/2017 CLINICAL HISTORY: Routine screening. Patient has no complaints. TECHNIQUE: Bilateral CC and MLO views were obtained. Current study was also evaluated with a Compute r Aided Detection (CAD) system. COMPARISON: Comparison is made to exams dated: 08/21/2016 mammogram, 08/20/2015 ultrasound, 08/20/20 15 mammogram, 09/10/2014 mammogram, 09/07/2013 mammogram, and 08/29/2012 mammogram - [facility]. BREAST COMPOSITION: The tissue of both breasts is heterogeneously dense, which may obscure small mas ses. FINDINGS: There are benign coarse and rim calcifications bilaterally. A metallic device projects ov er the medial posterior left breast. No new suspicious mass, architectural distortion or cluster of m icrocalcifications is seen. IMPRESSION: ACR BI-RADS CATEGORY 2: BENIGN There is no mammographic evidence of malignancy. A 1 year screening mammogram is recommended. The pa tient will receive written notification of the results. Approximately 10% of breast cancers are not detected with mammography. A negative mammographic report should not delay biopsy if a clinically suggestive mass is present. Marcelina Parikh M.D. ay/:08/24/2017 08:11:14 Hoop Cutter: Lovely FREEMAN(R)(M), [facility] letter sent: Normal 1/2 BI-RADS Code: ACR BI-RADS Category 2: Benign
== END | disposition home or self-care (01) ==
LOC: C.MAMM 07:16
PROVIDERS: ATTEND Family Medicine
DX: Z12.31 Encounter for screening mammogram for malignant neoplasm of breast (principal)

== ENCOUNTER → 2017-09-15 | Outpatient (CLI) | payer BC | END | disposition home or self-care (01) | LOC: C.LABSPEC 17:08 | PROVIDERS: ATTEND Family Medicine | DX: Z00.00 Encounter for general adult medical examination without abnormal findings (principal); R19.7 Diarrhea, unspecified ==

== ENCOUNTER → 2017-10-15 | Outpatient (CLI) | payer BC ==
[2017-10-15 17:41] LABS: CALCIUM 9.7 mg/dl (8.5-10.1)
[2017-10-15 17:56] LABS: THYROID STIMULATING HORMONE 0.393 uIu/ml (0.300-4.500)
== END | disposition home or self-care (01) ==
LOC: C.LAB1850 16:00
PROVIDERS: ATTEND Internal Medicine Rheumatology
DX: E03.9 Hypothyroidism, unspecified (principal); R19.7 Diarrhea, unspecified; M80.00XA Age-related osteoporosis with current pathological fracture, unspecified site, initial encounter for fracture; E55.9 Vitamin D deficiency, unspecified; E61.8 Deficiency of other specified nutrient elements

== ENCOUNTER → 2017-10-28 | Outpatient (CLI) | payer BC ==
[~2017-10-28] MED LIST changes: +ATOR-24 PO; +CALC600T9 PO; +CHOL100010 PO; +LEVO137T3 PO; +LUTE20CA PO; +METF-382 PO; +TERI600S SQ
[2017-10-28 12:40] LABS: BASO % 0.3 %; BASO ABS # 0.02 K/uL (0-0.2); COMPLETE YES; HEMATOCRIT 39.7 % (37-47); IG% 0.2 %; LYMPH % 43.1 %; LYMPH ABS # 2.82 K/uL (1.2-3.4); MEAN CELL VOLUME 80.2 fL (80-100); MEAN CORPUSCULAR HEMOGLOBIN 26.9 pg (25-34); MEAN CORPUSCULAR HGB CONC 33.5 g/dl (32-36); MEAN PLATELET VOLUME 9.1 fL (7.4-10.4); NEUT % 45.4 %; PLATELET COUNT 269 K/uL (130-400); RED BLOOD COUNT 4.95 M/uL (4.2-5.4); WHITE BLOOD COUNT 6.54 K/uL (4.8-10.8)
[2017-10-28 13:13] LABS: ALT/SGPT 35 U/L (12-78); AST/SGOT 16 U/L (15-37); BLOOD UREA NITROGEN 7 mg/dl (7-18); BUN/CREATININE RATIO 11.1 (10-20); CALCIUM 9.5 mg/dl (8.5-10.1); CARBON DIOXIDE 26 mmol/L (21-32); CHLORIDE 101 mmol/L (98-107); GLUCOSE 149 mg/dl (70-99); POTASSIUM 3.9 mmol/L (3.5-5.1); SODIUM 133 mmol/L (136-145)
[2017-10-28 13:15] LABS: ALKALINE PHOSPHATASE 122 U/L (45-117)
[2017-10-30 13:34] LABS: GLIADIN DEAMIDATED IgA AB 7 UNITS (<20); GLIADIN DEAMIDATED IgG AB 2 UNITS (<20); RETICULIN IgA AB Negative (Negative)
== END | disposition home or self-care (01) ==
LOC: C.LABPBG 10:02
PROVIDERS: ATTEND Family Medicine
DX: R19.7 Diarrhea, unspecified (principal)

== ENCOUNTER → 2017-11-17 | Day surgery (SDC) | payer BC ==
[2017-11-04 09:23] VITALS: BMI 23.0
[~2017-11-17] VITALS: Ht 165.1 cm; Wt 63.2 kg
[~2017-11-17] MED LIST changes: -BIOT1CAP8 PO; -CALC1CHW PO; -CHOL100040 PO; -LEVO150T PO; -METF1TAB53 PO; -MISC1CAP58 PO; +SODIUM CHLORIDE 0.9% 500ML 500 ML IV ONE
[2017-11-17 14:09] VITALS: Ht 165.1 cm; Wt 63.2 kg
[2017-11-17 14:18] VITALS: TEMP 37.1
--- NOTE | 2017-11-17 14:33 | Endo History and Physical ---
History & Physical Date of Service: Nov 17, 2017. Chief Complaint: diarrhea Referring Physician: Dr. Lim History of Present Illness 72 yo CF who presents for colonoscopy secondary to diarrhea Past Medical History Diabetes, Asthma, Pulmonary Emboli, High Cholesterol, Heart Disease, CHF, Hypertension, COPD, Thyroid Disease Past Surgical History Hx Cardiac Surgery: Yes (LOOP RECORDER IMPLANTED) Hx Internal Defibrillator: No Hx Pacemaker: No Hx Abdominal Surgery: Yes (TUBAL LIGATION, APPY, MARYAN, HYSTERECTOMY) Hx of Implantable Prosthesis: No Hx Post-Op Nausea and Vomiting: Yes Hx Cancer Surgery: No Hx Thoracic Surgery: No Hx Orthopedic: Yes (REVERSE LEFT TSA) Hx Urinary Tract Surgery: Yes (BLADDER SLING) Family History None Social History Smoking Status: Never Smoker Hx Substance Use: No Hx Alcohol Use: No Allergies Coded Allergies: Levofloxacin (Verified Allergy, Unknown, FEELS SICK, 11/17/17) Oxycodone (Verified Allergy, Unknown, "GETS SICK", 11/17/17) Current Medications Reported Home Medications Medications Dose Route/Sig Max Daily Dose Days Date Category Glucophage Ext Rel (Metformin HCl) 500 Mg Tab 2 Tab PO BID 11/04/17 Reported Lipitor (Atorvastatin Calcium) 40 Mg Tab 40 Mg PO QAM 11/04/17 Reported Vitamin D (Cholecalciferol) 1,000 Unit Tab 1 Tab PO QAM 11/04/17 Reported Lutein 20 Mg Cap 1 Cap PO QAM 11/04/17 Reported Cranberry (Cranberry (Vaccinium Macrocarp) 500 Mg Cap 1 Cap PO QAM 11/04/17 Reported Calcium + D (Calcium Carbonate-Vitamin D) 1 Tab Tab 1 Tab PO QAM 11/04/17 Reported Levothyroxine Sodium 137 Mcg Tab 1 Tab PO QAM 11/04/17 Reported Clopidogrel (Clopidogrel Bisulfate) 75 Mg Tab 1 Tab PO QAM 05/21/16 Reported [place]-3 (Fish Oil) 1 Ea Cap 1 Cap PO QAM 02/25/16 Reported Multivitamin (Multivitamins) Tab 1 Tab PO QAM 02/25/16 Reported Miralax (Polyethylene Glycol 3350) 1 Pow Pow 17 Gm PO DAILY PRN 02/25/16 Reported Protonix (Pantoprazole Sodium) 20 Mg Tab 20 Mg PO QAM 12/05/15 Reported Vital Signs Weight (Kilograms): 63.18 Height (Feet): 5 Height (Inches): 5 Date Time Temp Pulse Resp B/P (MAP) Pulse Ox O2 Delivery O2 Flow Rate FiO2 11/17/17 14:18 37.1 93 20 134/70 (91) 96 Room Air Physical Exam General Appearance: WD/WN, no apparent distress Respiratory/Chest: Auscultation: breath sounds normal Cardiovascular: Heart Auscultation: RRR Abdomen: Bowel Sounds: normal Inspection & Palpation: soft, non-distended, no tenderness, guarding & rebound Assessment and Plan Assessment: 72 yo CF who presents for colonoscopy secondary to diarrhea Plan: Proceed with colonoscopy.
--- NOTE | 2017-11-17 15:04 | Discharge Instructions ---
Endoscopy Patient Instructions Date / Procedure(s) Performed Nov 17, 2017. Colonoscopy Allergy Information Coded Allergies: Levofloxacin (Verified Adverse Reaction, Unknown, FEELS SICK, 11/17/17) Oxycodone (Verified Adverse Reaction, Unknown, "GETS SICK", 11/17/17) Discharge Date / Findings Nov 17, 2017. Colon polyp Internal hemorrhoids Random colon biopsies Stool aspirated collected Medication Instructions Stopped Medication(s): stopped Plavix OK to resume all medications today as prescribed Reported Home Medications Medications Dose Route/Sig Max Daily Dose Days Date Category Glucophage Ext Rel (Metformin HCl) 500 Mg Tab 2 Tab PO BID 11/04/17 Reported Lipitor (Atorvastatin Calcium) 40 Mg Tab 40 Mg PO QAM 11/04/17 Reported Vitamin D (Cholecalciferol) 1,000 Unit Tab 1 Tab PO QAM 11/04/17 Reported Lutein 20 Mg Cap 1 Cap PO QAM 11/04/17 Reported Cranberry (Cranberry (Vaccinium Macrocarp) 500 Mg Cap 1 Cap PO QAM 11/04/17 Reported Calcium + D (Calcium Carbonate-Vitamin D) 1 Tab Tab 1 Tab PO QAM 11/04/17 Reported Levothyroxine Sodium 137 Mcg Tab 1 Tab PO QAM 11/04/17 Reported Clopidogrel (Clopidogrel Bisulfate) 75 Mg Tab 1 Tab PO QAM 05/21/16 Reported [place]-3 (Fish Oil) 1 Ea Cap 1 Cap PO QAM 02/25/16 Reported Multivitamin (Multivitamins) Tab 1 Tab PO QAM 02/25/16 Reported Miralax (Polyethylene Glycol 3350) 1 Pow Pow 17 Gm PO DAILY PRN 02/25/16 Reported Protonix (Pantoprazole Sodium) 20 Mg Tab 20 Mg PO QAM 12/05/15 Reported Provider Instructions Activity Restrictions - No exercising or heavy lifting for 24 hours. - Do not drink alcohol the day of the procedure. - Do not drive a car or operate machinery until the day after the procedure. - Do not make any important decisions or sign important papers in 24 hours after the procedure. Following Day: - Return to full activity which may include returning to work/school. Diet Start your diet with liquids and light foods (jello, soup, juice, toast). Then eat your usual diet if not nauseated. Treatment For Common After Affects For mild abdominal pain, bloating, or excessive gas: - Rest - Eat lightly - Lie on right side Follow-Up Information Follow-up with Dr. Lim as scheduled Anesthesia Information What You Should Know You have had a procedure that required some medicine to reduce anxiety and discomfort. This treatment is called moderate sedation. After receiving the treatment, you may be sleepy, but you will be able to breathe on your own. The effects of the treatment may last for several hours. Follow these instructions along with Activity/Diet recommendations noted above: * Do NOT do anything where dizziness or clumsiness would be dangerous. * Rest quietly at home today, then you can be up and about tomorrow. * Have a responsible person stay with you the rest of today. * You may have had an I.V. today. If so, you may take the dressing off later today. Recommendations Call your doctor if: * Trouble breathing * Continuous vomiting for more than 24 hours * Temperature above 101 degrees * Severe abdominal pain or bloating * Pain not relieved by pain medicine ordered * There is increased drainage or redness from any incision * A large amount of rectal bleeding greater than 2-3 tablespoons. (If you had a polyp/s removed or have hemorrhoids, a small amount of blood - from the rectum is to be expected.) * You have any unanswered questions or concerns. IN THE EVENT OF A SERIOUS EMERGENCY, GO TO THE NEAREST EMERGENCY ROOM Your discharge instructions were prepared by provider Casimiro Singh. Patient Instructions Signature Page Teri Bell Patient (or Guardian) Signature/Date: I have read and understand the instructions given to me by my caregivers. Caregiver/RN/Doctor Signature/Date: The above-named patient and/or guardian has received patient instructions on this date. + Original Patient Signature Page (only) stays with chart. Please make copy for patient.
--- NOTE | 2017-11-17 15:17 | GI REPORT ---
Procedure Date: 11/17/2017 2:17 PM Procedure: Colonoscopy Indications: Chronic diarrhea Medicines: Monitored Anesthesia Care Complications: No immediate complications. Estimated Blood Loss: Estimated blood loss: none. Procedure: Pre-Anesthesia Assessment: - Prior to the procedure, a History and Physical was performed, and patient medications and allergies were reviewed. The patient's tolerance of previous anesthesia was also reviewed. The risks and benefits of the procedure and the sedation options and risks were discussed with the patient. All questions were answered, and informed consent was obtained. Prior Anticoagulants: The patient has taken Plavix (clopidogrel), last dose was 7 days prior to procedure. ASA Grade Assessment: III - A patient with severe systemic disease. After reviewing the risks and benefits, the patient was deemed in satisfactory condition to undergo the procedure. After I obtained informed consent, the scope was passed under direct vision. Throughout the procedure, the patient's blood pressure, pulse, and oxygen saturations were monitored continuously. The Scope was introduced through the anus and advanced to the terminal ileum. The colonoscopy was performed without difficulty. The patient tolerated the procedure well. The quality of the bowel preparation was good. The terminal ileum, ileocecal valve, appendiceal orifice, and rectum were photographed. Findings: The perianal and digital rectal examinations were normal. A 5 mm polyp was found in the hepatic flexure. The polyp was sessile. The polyp was removed with a hot snare. Resection and retrieval were complete. Non-bleeding internal hemorrhoids were found during retroflexion. The hemorrhoids were small. Biopsies were taken with a cold forceps in the entire colon for histology. Fluid aspiration for histology was performed in the entire colon. Impression: - One 5 mm polyp at the hepatic flexure, removed with a hot snare. Resected and retrieved. - Non-bleeding internal hemorrhoids. - Biopsies were taken with a cold forceps for histology in the entire colon. - Fluid aspiration was performed. Recommendation: - Resume previous diet. - Continue present medications. - Await pathology results. - Return to primary care physician as previously scheduled. Casimiro Snigh DO 11/17/2017 3:16:25 PM This report has been signed electronically. Note Initiated On: 11/17/2017 2:17 PM I attest to the content of the Intraoperative Record and orders documented therein, exceptions below
--- NOTE | 2017-11-17 15:23 | Anesthesiology Progress Note ---
Anesthesia Post Op Note Date & Time Nov 17, 2017 at 15:23 Vital Signs Pain Intensity: 0 Vital Signs Past 12 Hours Date Time Temp Pulse Resp B/P (MAP) Pulse Ox O2 Delivery O2 Flow Rate FiO2 11/17/17 15:18 84 18 131/70 (90) 97 Room Air 11/17/17 15:03 90 16 138/71 (93) 98 Room Air 11/17/17 14:18 37.1 93 20 134/70 (91) 96 Room Air Notes Mental Status: alert / awake / arousable, participated in evaluation Pt Amnestic to Procedure: Yes Nausea / Vomiting: adequately controlled Pain: adequately controlled Airway Patency, RR, SpO2: stable & adequate BP & HR: stable & adequate Hydration State: stable & adequate Anesthetic Complications: no major complications apparent
[2017-11-17 15:34] VITALS: BP 131/78; PULSE 86; O2SAT 97
== END | disposition home or self-care (01) ==
LOC: C.GI 13:38
PROVIDERS: ATTEND Internal Medicine
DX: K52.9 Noninfective gastroenteritis and colitis, unspecified (principal); D12.3 Benign neoplasm of transverse colon; K64.8 Other hemorrhoids; E11.9 Type 2 diabetes mellitus without complications; J45.909 Unspecified asthma, uncomplicated; H40.9 Unspecified glaucoma; I50.9 Heart failure, unspecified; I11.0 Hypertensive heart disease with heart failure; E78.00 Pure hypercholesterolemia, unspecified; J44.9 Chronic obstructive pulmonary disease, unspecified; Z86.711 Personal history of pulmonary embolism; Z86.73 Personal history of transient ischemic attack (TIA), and cerebral infarction without residual deficits; Z98.890 Other specified postprocedural states; Z98.51 Tubal ligation status; Z90.49 Acquired absence of other specified parts of digestive tract; Z90.710 Acquired absence of both cervix and uterus; Z90.89 Acquired absence of other organs; Z88.1 Allergy status to other antibiotic agents; Z88.5 Allergy status to narcotic agent

== ENCOUNTER → 2018-02-02 | Outpatient (CLI) | payer BC ==
[~2018-02-02] MED LIST changes: -SODIUM CHLORIDE 0.9% 500ML 500 ML IV ONE; -TERI600S SQ
[2018-02-02 13:15] LABS: BASO % 0.5 %; BASO ABS # 0.04 K/uL (0-0.2); EOS % 9.8 %; HEMATOCRIT 37.9 % (37-47); HEMOGLOBIN 12.4 g/dL (12.0-16.0); IG# 0.02 K/uL (0.00-0.02); LYMPH % 40.5 %; MEAN CORPUSCULAR HEMOGLOBIN 26.5 pg (25-34); MEAN CORPUSCULAR HGB CONC 32.7 g/dl (32-36); MONO % 8.2 %; MONO ABS # 0.67 K/uL (0.11-0.59); NEUT % 40.8 %; NEUT ABS # 3.32 K/uL (1.4-6.5); PLATELET COUNT 230 K/uL (130-400); RED CELL DISTRIBUTION WIDTH CV 16.2 % (11.5-14.5); RED CELL DISTRIBUTION WIDTH SD 48.3 fL (36.4-46.3); WHITE BLOOD COUNT 8.15 K/uL (4.8-10.8)
[2018-02-02 17:03] LABS: ALBUMIN 4.5 gm/dl (3.4-5.0); ALT/SGPT 24 U/L (12-78); BLOOD UREA NITROGEN 6 mg/dl (7-18); CALCIUM 10.5 mg/dl (8.5-10.1); CARBON DIOXIDE 25 mmol/L (21-32); CREATININE 0.59 mg/dl (0.60-1.20); GLUCOSE 98 mg/dl (70-99); POTASSIUM 3.3 mmol/L (3.5-5.1); SODIUM 134 mmol/L (136-145)
[2018-02-02 17:06] LABS: ALKALINE PHOSPHATASE 116 U/L (45-117); AST/SGOT 15 U/L (15-37); TOTAL PROTEIN 8.3 gm/dl (6.4-8.2)
== END | disposition home or self-care (01) ==
LOC: C.LAB 12:02
PROVIDERS: ATTEND Physician Assistant
DX: E11.9 Type 2 diabetes mellitus without complications (principal)

== ENCOUNTER → 2018-02-07 | Outpatient (CLI) | payer BC ==
[~2018-02-07] MED LIST changes: +OPTIRAY 320 IV PRN
--- NOTE | 2018-02-07 07:04 | DIAGNOSTIC IMAGING REPORT ---
CT ABD/PELVIS IV AND ORAL CONT CLINICAL HISTORY: Change in bowel habits. Diarrhea. COMPARISON STUDY: 01/28/2016 TECHNIQUE: Following the IV administration of 94 mL of Optiray-320, CT scan of the abdomen and pelvis was performed from the lung bases to the proximal femurs. Images are reviewed in the axial, sagittal, and coronal planes. IV contrast was administered without complication. A dose lowering technique was utilized adhering to the principles of ALARA. CT DOSE: 433.66 mGy.cm FINDINGS: Lower chest: There is mild interstitial prominence with slight mosaic groundglass attenuation the lungs. Liver: The liver is borderline enlarged. There are no focal masses identified. The portal vein appears patent. Gallbladder: Surgically absent Spleen: Borderline enlarged measuring 12.1 cm Pancreas: Unremarkable. Adrenal glands: Unremarkable. Kidneys: There is symmetric renal cortical enhancement. The kidneys are normal in size without hydronephrosis. Bowel: There are no transition zones indicate bowel obstruction. By history the appendix is absent. There is scattered stool throughout the colon. There is no acute diverticulitis. Peritoneum: There is no intraperitoneal free air or abdominal ascites. Vasculature: The abdominal aorta is normal in course and caliber. Adenopathy: None. Pelvic viscera: The uterus is surgically absent. Skeletal structures: No destructive osseous lesions are seen. IMPRESSION: 1. No evidence of bowel obstruction. No evidence of free air 2. No acute inflammatory changes 3. Borderline hepatosplenomegaly Electronically signed by: Danilo Galo M.D. 02/07/2018 7:03 AM Dictated Date/Time: 02/07/2018 6:58 AM
== END | disposition home or self-care (01) ==
LOC: C.CTS 06:09
PROVIDERS: ATTEND Physician Assistant
DX: R19.7 Diarrhea, unspecified (principal); R19.4 Change in bowel habit

== ENCOUNTER 2018-03-26 18:40 | Emergency (ER) | payer BC ==
[~2018-03-26 18:40] MED LIST changes: -OPTIRAY 320 IV PRN
[2018-03-26 18:44] VITALS: TEMP 36.5; Ht 165.1 cm
[2018-03-26] MEDS ORDERED: MECLIZINE HCL 25 MG TAB PO STA (18:56)
[2018-03-26] MEDS ORDERED: ONDANSETRON INJ 2 MG/ML 2 ML VIAL IV STA (18:56)
[2018-03-26] MEDS ORDERED: SODIUM CHLORIDE 0.9% 1000ML 500 ML IV STA (18:56)
[2018-03-26 19:23] LABS: BASO % 0.6 %; BASO ABS # 0.03 K/uL (0-0.2); EOS % 2.3 %; EOS ABS # 0.12 K/uL (0-0.5); HEMATOCRIT 37.9 % (37-47); HEMOGLOBIN 12.7 g/dL (12.0-16.0); IG# 0.01 K/uL (0.00-0.02); LYMPH % 32.8 %; LYMPH ABS # 1.69 K/uL (1.2-3.4); MEAN CELL VOLUME 79.5 fL (80-100); MEAN CORPUSCULAR HEMOGLOBIN 26.6 pg (25-34); MEAN CORPUSCULAR HGB CONC 33.5 g/dl (32-36); MONO % 7.6 %; MONO ABS # 0.39 K/uL (0.11-0.59); NEUT % 56.5 %; NEUT ABS # 2.91 K/uL (1.4-6.5); PLATELET COUNT 230 K/uL (130-400); RED CELL DISTRIBUTION WIDTH CV 14.7 % (11.5-14.5); RED CELL DISTRIBUTION WIDTH SD 42.6 fL (36.4-46.3); WHITE BLOOD COUNT 5.15 K/uL (4.8-10.8)
--- NOTE | 2018-03-26 19:46 | DIAGNOSTIC IMAGING REPORT ---
CT HEAD WITHOUT CONTRAST (CT) CLINICAL HISTORY: Altered mental status. Generalized weakness. COMPARISON STUDY: 11/28/2016 TECHNIQUE: Axial CT of the brain is performed from the vertex to the skull base. IV contrast was not administered for this examination. A dose lowering technique was utilized adhering to the principles of ALARA. CT DOSE: 614.27 mGy.cm FINDINGS: No intra or extra-axial mass lesions are visualized. There is no CT evidence of acute cortical infarction. There is no evidence of midline shift. There is no acute hemorrhage. No calvarial fractures are visualized. There are patchy white matter hypodensities likely on a small vessel basis. There is an old right cerebellar infarct. There is an old infarct involving the left external capsule/lentiform nucleus. There is no evidence of pathologic ventricular dilatation. There is no evidence of acute sinusitis IMPRESSION: No acute intracranial findings Electronically signed by: Danilo Galo M.D. 03/26/2018 7:44 PM Dictated Date/Time: 03/26/2018 7:42 PM
[2018-03-26 19:51] LABS: ALBUMIN 3.9 gm/dl (3.4-5.0); ALKALINE PHOSPHATASE 111 U/L (45-117); ALT/SGPT 30 U/L (12-78); AST/SGOT 18 U/L (15-37); BLOOD UREA NITROGEN 10 mg/dl (7-18); CALCIUM 9.6 mg/dl (8.5-10.1); CARBON DIOXIDE 25 mmol/L (21-32); CREATININE 0.69 mg/dl (0.60-1.20); GLUCOSE 139 mg/dl (70-99); POTASSIUM 3.9 mmol/L (3.5-5.1); SODIUM 139 mmol/L (136-145); TOTAL PROTEIN 7.9 gm/dl (6.4-8.2)
--- NOTE | 2018-03-26 20:09 | EMERGENCY ROOM VISIT NOTE ---
History Report prepared by Virgil: Monica Edward Under the Supervision of: Dr. Andrez Cota M.D. First contact with patient: 18:48 Chief Complaint: DIZZY Stated Complaint: DIZZY History of Present Illness The patient is a 72 year old female who presents to the Emergency Room with complaints of constant dizziness since this morning. The patient states that last night she went to bed and felt normal. She states that she woke up this morning and feels like the room has been spinning around her. She states that she feels like she is off balance. She reports that it is worse when she is changing position and better when she is sitting still. She notes that she had vertigo a long time ago. The patient states that she thought maybe she had an ear infection so she had her check her ears. She states that he told her they look normal. The patient complains of chills, hot flashes, blurry vision, and nausea when moving. The patient notes that her head feels weird, but denies it being in pain. She reports that it just doesn't feel right. The patient denies unilateral weakness, a headache, fevers, cough, congestion, stuffy nose, urinary symptoms, and ear pain. Source of History: patient Onset: this morning Position: other (global) Quality: other (dizziness) Timing: constant Modifying Factors (Worsening): other (change in position) Modifying Factors (Relieving): other (sitting still) Associated Symptoms: + chills, + nausea (when moving), No fevers, No headache, No cough, No urinary symptoms, No weakness (unilateral) Note: The patient complains of hot flashes, blurry vision, and her head feeling weird. The patient denies congestion, stuffy nose, and ear pain. Review of Systems See HPI for pertinent positives & negatives. A total of 10 systems reviewed and were otherwise negative. Past Medical & Surgical Medical Problems: (1) Fracture of humeral head, left, closed (2) Hx of vertigo (3) Pre-syncope (4) Stroke Surgical Problems: (1) Hx of appendectomy Family History Diabetes mellitus Social History Smoking Status: Never Smoker Alcohol Use: occasionally Drug Use: none Marital Status: Housing Status: lives with family Occupation Status: retired Current/Historical Medications Scheduled Atorvastatin (Lipitor), 40 MG PO QAM Calcium Carbonate-Vitamin D (Calcium + D), 1 TAB PO QAM Cephalexin Monohydrate (Keflex), 500 MG PO TID Cholecalciferol (Vitamin D), 1 TAB PO QAM Clopidogrel Bisulfate (Clopidogrel), 1 TAB PO QAM Cranberry (Vaccinium Macrocarp (Cranberry), 1 CAP PO QAM Fish Oil ([place]-3), 1 CAP PO QAM Levothyroxine Sodium (Levothyroxine Sodium), 1 TAB PO QAM Lutein (Lutein), 1 CAP PO QAM Metformin Ext Rel (Glucophage Ext Rel), 2 TAB PO BID Multivitamin (Multivitamin), 1 TAB PO QAM Pantoprazole (Protonix), 20 MG PO QAM Scheduled PRN Meclizine HCl (Meclizine HCl), 0.5-1 TAB PO Q8 PRN for Dizziness or Vertigo Polyethylene Glycol 3350 (Miralax), 17 GM PO DAILY PRN for Constipation Allergies Coded Allergies: Levofloxacin (Verified Adverse Reaction, Unknown, FEELS SICK, 11/17/17) Oxycodone (Verified Adverse Reaction, Unknown, "GETS SICK", 11/17/17) Physical Exam Vital Signs Date Time Temp Pulse Resp B/P (MAP) Pulse Ox O2 Delivery O2 Flow Rate FiO2 03/26/18 20:35 79 03/26/18 20:20 72 147/71 75 151/73 83 140/73 03/26/18 20:01 74 18 134/84 98 Room Air 03/26/18 18:44 36.5 76 19 146/76 98 Room Air Physical Exam GENERAL: Patient is in no acute distress. HEENT: No acute trauma, normocephalic atraumatic, mucous membranes moist, no nasal congestion, no scleral icterus. Pupils are equal and reactive to light. No nystagmus. TMs are clear bilaterally. NECK: No stridor, no adenopathy, no meningismus, trachea is midline. LUNGS: Clear to auscultation bilaterally, no wheeze, no rhonchi, breath sounds equal. HEART: Without murmurs gallops or rubs, regular rate and rhythm. ABDOMEN: Soft, nontender, bowel sounds positive, no hernias, no peritonitis. EXTREMITIES: No cyanosis or edema, full range of motion of all the joints without pain or difficulty, no signs for acute trauma. NEUROLOGIC: Oriented x 3, no acute motor or sensory deficits, no focal weakness. No speech slur or facial droop. No pronator drift or cerebellar dysfunction. SKIN: No rash, no jaundice, no diaphoresis. Medical Decision & Procedures ER Provider Diagnostic Interpretation: Radiology results as stated below per my review and radiologist interpretation: CT HEAD WITHOUT CONTRAST (CT) CLINICAL HISTORY: Altered mental status. Generalized weakness. COMPARISON STUDY: 11/28/2016 TECHNIQUE: Axial CT of the brain is performed from the vertex to the skull base. IV contrast was not administered for this examination. A dose lowering technique was utilized adhering to the principles of ALARA. CT DOSE: 614.27 mGy.cm FINDINGS: No intra or extra-axial mass lesions are visualized. There is no CT evidence of acute cortical infarction. There is no evidence of midline shift. There is no acute hemorrhage. No calvarial fractures are visualized. There are patchy white matter hypodensities likely on a small vessel basis. There is an old right cerebellar infarct. There is an old infarct involving the left external capsule/lentiform nucleus. There is no evidence of pathologic ventricular dilatation. There is no evidence of acute sinusitis IMPRESSION: No acute intracranial findings Electronically signed by: Danilo Galo M.D. 03/26/2018 7:44 PM Dictated Date/Time: 03/26/2018 7:42 PM Laboratory Results 03/26/18 19:10 Red Blood Count 4.77, Mean Corpuscular Volume 79.5, Mean Corpuscular Hemoglobin 26.6, Mean Corpuscular Hemoglobin Concent 33.5, Mean Platelet Volume 9.0, Neutrophils (%) (Auto) 56.5, Lymphocytes (%) (Auto) 32.8, Monocytes (%) (Auto) 7.6, Eosinophils (%) (Auto) 2.3, Basophils (%) (Auto) 0.6, Neutrophils # (Auto) 2.91, Lymphocytes # (Auto) 1.69, Monocytes # (Auto) 0.39, Eosinophils # (Auto) 0.12, Basophils # (Auto) 0.03 03/26/18 19:10 Test 03/26/18 19:10 03/26/18 20:15 White Blood Count 5.15 K/uL (4.8-10.8) Red Blood Count 4.77 M/uL (4.2-5.4) Hemoglobin 12.7 g/dL (12.0-16.0) Hematocrit 37.9 % (37-47) Mean Corpuscular Volume 79.5 fL (80-100) Mean Corpuscular Hemoglobin 26.6 pg (25-34) Mean Corpuscular Hemoglobin Concent 33.5 g/dl (32-36) Platelet Count 230 K/uL (130-400) Mean Platelet Volume 9.0 fL (7.4-10.4) Neutrophils (%) (Auto) 56.5 % Lymphocytes (%) (Auto) 32.8 % Monocytes (%) (Auto) 7.6 % Eosinophils (%) (Auto) 2.3 % Basophils (%) (Auto) 0.6 % Neutrophils # (Auto) 2.91 K/uL (1.4-6.5) Lymphocytes # (Auto) 1.69 K/uL (1.2-3.4) Monocytes # (Auto) 0.39 K/uL (0.11-0.59) Eosinophils # (Auto) 0.12 K/uL (0-0.5) Basophils # (Auto) 0.03 K/uL (0-0.2) RDW Standard Deviation 42.6 fL (36.4-46.3) RDW Coefficient of Variation 14.7 % (11.5-14.5) Immature Granulocyte % (Auto) 0.2 % Immature Granulocyte # (Auto) 0.01 K/uL (0.00-0.02) Anion Gap 9.0 mmol/L (3-11) Estimated GFR () 102.2 Estimated GFR (Non- 88.2 BUN/Creatinine Ratio 14.7 (10-20) Calcium Level 9.6 mg/dl (8.5-10.1) Magnesium Level 1.9 mg/dl (1.8-2.4) Total Bilirubin 0.6 mg/dl (0.2-1) Aspartate Amino Transf (AST/SGOT) 18 U/L (15-37) Alanine Aminotransferase (ALT/SGPT) 30 U/L (12-78) Alkaline Phosphatase 111 U/L (45-117) Troponin I < 0.015 ng/ml (0-0.045) Total Protein 7.9 gm/dl (6.4-8.2) Albumin 3.9 gm/dl (3.4-5.0) Globulin 4.0 gm/dl (2.5-4.0) Albumin/Globulin Ratio 1.0 (0.9-2) Thyroid Stimulating Hormone (TSH) 1.080 uIu/ml (0.300-4.500) Urine Color YELLOW Urine Appearance TURBID (CLEAR) Urine pH 8.0 (4.5-7.5) Urine Specific Nixon 1.015 (1.000-1.030) Urine Protein NEG (NEG) Urine Glucose (UA) NEG (NEG) Urine Ketones NEG (NEG) Urine Occult Blood TRACE (NEG) Urine Nitrite NEG (NEG) Urine Bilirubin NEG (NEG) Urine Urobilinogen NEG (NEG) Urine Leukocyte Esterase LARGE (NEG) Urine WBC (Auto) >30 /hpf (0-5) Urine RBC (Auto) 0-4 /hpf (0-4) Urine Hyaline Casts (Auto) 1-5 /lpf (0-5) Urine Epithelial Cells (Auto) >30 /lpf (0-5) Urine Bacteria (Auto) 2+ (NEG) Laboratory results reviewed by me. Medications Administered Medications (Trade) Dose Ordered Sig/Norm Route Start Time Stop Time Status Last Admin Dose Admin Sodium Chloride 500 ml @ 999 mls/hr Q31M STAT IV 03/26/18 18:56 03/26/18 19:26 DC 03/26/18 19:19 999 MLS/HR Ondansetron HCl (Zofran Inj) 4 mg NOW STAT IV 03/26/18 18:56 03/26/18 18:58 DC 03/26/18 19:18 4 MG Meclizine HCl (Antivert Tab) 25 mg NOW STAT PO 03/26/18 18:56 03/26/18 18:58 DC 03/26/18 19:18 25 MG Ceftriaxone Sodium (Rocephin Inj) 1 gm NOW STAT IV 03/26/18 20:53 03/26/18 20:54 DC 03/26/18 21:18 1 GM Meclizine HCl (Antivert 25MG Home Pack) 1 homepack UD ONCE PO 03/26/18 21:15 03/26/18 21:16 DC 03/26/18 21:20 1 HOMEPACK ECG Per My Interpretation Indication: other (dizziness) Rate (beats per minute): 71 Rhythm: normal sinus Findings: other (LVH, no ST elevation, no PVCs) ED Course 1849: The patient was evaluated in room C9. A complete history and physical exam was performed. 1855: Ordered Antivert Tab 25 mg PO, Zofran Inj 4 mg IV, NSS 500 ml @ 999 mls/ hr IV. 2051: Orthostatic vital signs are negative. 2052: Ordered Rocephin Inj 1 gm IV. 2054: Reevaluated the patient and she is feeling better. Discussed results and discharge instructions: She verbalized understanding and agreement. The patient is ready for discharge. 2114: Ordered Meclizine HCl 1 homepack PO. Medical Decision Differential diagnose include vertigo, UTI, anemia, electrolyte imbalance, dehydration, stroke, ear infection, sinus infection. There is no leukocytosis or concerning anemia. No significant electrolyte abnormality, kidney failure, hepatitis. The patient appears to be in a euthyroid state. EKG shows a sinus rhythm, no acute ischemia. Cardiac enzyme testing 1 is not consistent with acute cardiac injury. Brain CT shows no acute bleed or mass-effect. Urinalysis is suggestive of infection, urine culture is pending. Orthostatic vital signs were negative. On my exam, there were no focal neurologic deficits. The patient was not toxic or febrile. Patient received oral meclizine, IV Zofran and IV saline. She did receive a dose of IV ceftriaxone for the UTI. The patient feels improved. She will be discharged on Keflex for a week for the urinary infection. Meclizine for the dizziness/vertigo. Hydration and rest were encouraged. If she is worsening, she can return. She appears to have vertigo, possibly the urinary infection is causing the vertigo/dizziness. Medication Reconcilliation Current Medication List: was personally reviewed by me Blood Pressure Screening Patient's blood pressure: Elevated blood pressure Blood pressure disposition: Referred to PCP Impression Primary Impression: Dizziness Additional Impression: UTI (urinary tract infection) Scribe Attestation The scribe's documentation has been prepared under my direction and personally reviewed by me in its entirety. I confirm that the note above accurately reflects all work, treatment, procedures, and medical decision making performed by me. Departure Information Dispostion Home / Self-Care Prescriptions Cephalexin Monohydrate (Keflex) 500 Mg Cap 500 MG PO TID for 7 Days, #21 CAP Prov: Andrez Cota M.D. 03/26/18 Meclizine HCl (Meclizine HCl) 25 Mg Tab 0.5-1 TAB PO Q8 Y for Dizziness or Vertigo, #12 TAB Prov: Andrez Cota M.D. 03/26/18 Referrals Heidi Lim DO (PCP) Forms HOME CARE DOCUMENTATION FORM, IMPORTANT VISIT INFORMATION Patient Instructions [facility] Additional Instructions keflex 3x per day for 1 week for the urine may use meclizine 1/2-1 tab every 8 hours for dizziness stay well hydrated rest see your fam md this week for a recheck return for vomiting, fever, worsening weakness or worsening symptoms Problem Qualifiers
[2018-03-26] MEDS ORDERED: CEFTRIAXONE SOD INJ 1 GM ADDVIAL IV STA (20:53)
[2018-03-26] MEDS ORDERED: CEPH500C PO (21:00)
[2018-03-26] MEDS ORDERED: ANT25 PO (21:00)
[2018-03-26] MEDS ORDERED: MECLIZINE HCL 25MG HOME PACK PO ONE (21:15)
[2018-03-26 21:38] VITALS: BP 133/75; PULSE 84; O2SAT 97
== END 2018-03-26 21:39 | disposition home or self-care (01) ==
LOC: C.EDB 18:42 → C.EDC 21:39
DX: R42 Dizziness and giddiness (principal); N39.0 Urinary tract infection, site not specified; Z86.73 Personal history of transient ischemic attack (TIA), and cerebral infarction without residual deficits; Z79.899 Other long term (current) drug therapy; Z88.1 Allergy status to other antibiotic agents; Z88.5 Allergy status to narcotic agent

== ENCOUNTER 2018-11-22 20:37 | Observation (INO) ==
[2018-11-22] MEDS ORDERED: ONDANSETRON INJ 2 MG/ML 2 ML VIAL IV STA (20:55)
[2018-11-22] MEDS ORDERED: MECLIZINE HCL 25 MG TAB PO STA (20:55)
[2018-11-22] MEDS ORDERED: LORazepam 0.5 MG/1 ML VIAL IV STA (20:55)
[2018-11-22] MEDS ORDERED: SODIUM CHLORIDE 0.9% 1000ML 1,000 ML IV SCH (21:00)
--- NOTE | 2018-11-22 21:04 | Emergency Department Note ---
Entered by Josue Chapman acting as a scribe for Andrez Cota MD History of Present Illness General Chief complaint: Dizziness Stated complaint: DIZZY, HEAD FEELS FUNNY Time Seen by Provider: 11/22/18 20:49 Source: patient History of Present Illness Provider complaint: Dizziness Onset (ago): hour(s) 7 Location: head Radiation: non-radiation Severity: similar to prior episodes Pain Consistency: + other (Worsening) Maximum Pain Intensity: 0 Quality: + burning Relieved By: + rest and + other (Closing eyes) Exacerbated By: + movement Associated symptoms: + headaches and + nausea/vomiting (No vomiting); no chest pain, no cough, no fever/chills, no shortness of breath and no other (Rhinorrhea ) The patient is a 73 year old female who presents to the Emergency Room with complaints of worsening dizziness that started today around 1430 (6.5 hours ago) . She states it started with her eyes burning before turning into her current symptoms. She describes the dizziness as room spinning that is worse when she is moving and better when she is resting with her eyes closed. She also mentioned her head feels "different". She has had vertigo in the past along with trouble in one ear and states this does feel similar to the vertigo. She denies any fever, rhinorrhea, cough, shortness of breath, chest pain or slurred speech. Home Medications Home Medications Medication Instructions Recorded Confirmed Type atorvastatin 40 mg PO DAILY 11/23/18 11/23/18 History calcium carbonate-vitamin D3 1 tab PO DAILY 11/23/18 11/23/18 History cholecalciferol (vitamin D3) 5,000 unit PO DAILY 11/23/18 11/23/18 History [Vitamin D3] clopidogrel 75 mg PO DAILY 11/23/18 11/23/18 History cranberry 500 mg PO DAILY 11/23/18 11/23/18 History levothyroxine 137 mcg PO DAILY 11/23/18 11/23/18 History liraglutide [Victoza 2-Vivek] 1.2 unit SUBCUT DAILY 11/23/18 11/23/18 History lutein 20 mg PO DAILY 11/23/18 11/23/18 History multivitamin 1 tab PO DAILY 11/23/18 11/23/18 History omega 2-fvk-gon-fish oil [Fish Oil] 1 cap PO DAILY 11/23/18 11/23/18 History pantoprazole 20 mg PO DAILY 11/23/18 11/23/18 History sitagliptin [Januvia] 100 mg PO DAILY 11/23/18 11/23/18 History teriparatide [Forteo] 20 mcg SUBCUT DAILY 11/23/18 11/23/18 History Allergies Allergy/AdvReac Type Severity Reaction Status Date / Time levofloxacin AdvReac Unknown FEELS SICK Verified 11/23/18 00:48 oxycodone AdvReac Unknown "GETS SICK" Verified 11/23/18 00:48 Past Med/Surg History Medical History Stroke Scalp hematoma (Acute) Fall (on) (from) other stairs and steps, initial encounter (Acute) Closed head injury without loss of consciousness (Acute) Hx of vertigo Left wrist sprain (Acute) Laceration of scalp without foreign body (Acute) Closed fracture of anatomical neck of left humerus (Acute) Fracture of humeral head, left, closed Pre-syncope Contusion of multiple sites (Acute) Fall (Acute) Closed rib fracture (Acute) Contusion of finger, left (Acute) Surgical History Hx of appendectomy (Chronic) Social History Feels Safe at Home: Yes Smoking Status: Never smoker Preferred Language: German Review of Systems See HPI for pertinent positives & negatives. and A total of 10 systems reviewed and were otherwise negative Physical Exam Vital Signs Vital Signs - 24 hr 11/22/18 20:42 11/22/18 21:41 11/23/18 00:18 Temperature 36.7 C Temperature Source Oral Sepsis Recent Fever Within 48 Hours No Sepsis New/Unexplained Change in Mental Status No Sepsis Action Taken by Nursing No Action Required Pulse Rate 82 Pulse Rate [Left Finger] 85 Respiratory Rate 16 14 Respiratory Effort / Characteristics Non-Labored Spontaneous Respiratory Depth Normal Blood Pressure 143/81 H Blood Pressure [Left Arm] 149/71 H Blood Pressure Mean 101 Blood Pressure Mean [Left Arm] 97 Pulse Oximetry 98 95 Oxygen Delivery Method Room Air Room Air Room Air GENERAL: Patient is in no acute distress. HEENT: No acute trauma, normocephalic atraumatic, mucous membranes moist, no nasal congestion, no scleral icterus. Right TM clear, left TM occluded by wax. PERRL. Horizontal nystagmus when the patient looks right and up. NECK: No stridor, no adenopathy, no meningismus, trachea is midline. LUNGS: Clear to auscultation bilaterally, no wheeze, no rhonchi, breath sounds equal. HEART: Without murmurs gallops or rubs, regular rate and rhythm. ABDOMEN: Soft, nontender, bowel sounds positive, no hernias, no peritonitis. EXTREMITIES: No cyanosis or edema, full range of motion of all the joints without pain or difficulty, no signs for acute trauma. NEUROLOGIC: Oriented x 3, no acute motor or sensory deficits, no focal weakness. No facial droop or slurred speech. No pronator drift or cerebellar deficits. SKIN: No rash, no jaundice, no diaphoresis. Course 2049: Past medical records reviewed. The patient was evaluated in room C06, and a complete history and physical examination were performed. 2241: I reevaluated the patient and she is still feeling really dizzy. She had trouble ambulating to the bathroom with the nurse as well. I am going to send her to get a MRI. 0: I spoke to Dr. Glynn - [facility] Hospitalist about the patient's case and she is going to accept the patient for further evaluation. 0027: I updated the patient on her MRI results and the treatment plan. Administered Medications Discontinued Medications Sodium Chloride (Nss 1000ml) 1,000 mls @ 999 mls/hr IV .Q1H1M RODOLFO Stop: 11/22/18 22:00 Last Infusion: 11/22/18 23:50 Dose: 0 mls/hr Admin: 11/22/18 21:40 Dose: 999 mls/hr Lorazepam (Ativan) 0.5 mg in 1 mls @ 1 mls/min IV NOW STA Stop: 11/22/18 20:56 Last Admin: 11/22/18 21:40 Dose: 1 mls/min Sodium Chloride (Nss) 500 mls @ 999 mls/hr IV .Q31M STA Stop: 11/22/18 23:03 Last Infusion: 11/22/18 23:51 Dose: 0 mls/hr Admin: 11/22/18 22:53 Dose: 999 mls/hr Meclizine HCl (Antivert) 25 mg PO NOW STA Stop: 11/22/18 20:56 Last Admin: 11/22/18 21:39 Dose: 25 mg Ondansetron HCl (Zofran) 4 mg IV NOW STA Stop: 11/22/18 20:56 Last Admin: 11/22/18 21:39 Dose: 4 mg Medical Decision Making Differential Diagnosis Differential Diagnoses include: Vertigo, stroke, intracranial bleeding, dehydration, anemia, electrolye imbalance, UTI, and viral illness, amongst others. Medical Records Attestation: I reviewed the patient's medical records. Home Medications Current Medication List: was personally reviewed by me Laboratory Data Attestation: I reviewed the patient's lab results. Result diagrams: 11/22/18 21:45 11/22/18 21:45 Lab Results 11/22/18 11/22/18 Range/Units 21:45 21:45 WBC 6.03 (4.8-10.8) K/uL RBC 4.75 (4.2-5.4) M/uL Hgb 12.5 (12.0-16.0) g/dL Hct 37.6 (37-47) % MCV 79.2 L (80-100) fL MCH 26.3 (25-34) pg MCHC 33.2 (32-36) g/dL RDW Std Deviation 45.7 (36.4-46.3) fL RDW Coeff of Lu 15.8 H (11.5-14.5) % Plt Count 201 (130-400) K/uL MPV 9.1 (7.4-10.4) fL Immature Gran % (Auto) 0.2 % Neut % (Auto) 60.8 % Lymph % (Auto) 30.2 % Lipscomb % (Auto) 7.0 % Eos % (Auto) 1.5 % Baso % (Auto) 0.3 % Immature Gran # (Auto) 0.01 (0.00-0.02) K/uL Neut # (Auto) 3.67 (1.4-6.5) K/uL Lymph # (Auto) 1.82 (1.2-3.4) K/uL [place]comb # (Auto) 0.42 (0.11-0.59) K/uL Eos # (Auto) 0.09 (0-0.5) K/uL Baso # (Auto) 0.02 (0-0.2) K/uL Sodium 137 (136-145) mmol/L Potassium 3.6 (3.5-5.1) mmol/L Chloride 102 (98-107) mmol/L Carbon Dioxide 26 (21-32) mmol/L Anion Gap 9.0 (3-11) BUN 8 (7-18) mg/dl Creatinine 0.90 (0.6-1.2) mg/dl Est Cr Clr Drug Dosing 51.6 ml/min Est GFR ( Amer) 74.6 Est GFR (Non-Af Amer) 64.3 BUN/Creatinine Ratio 9.3 L (10-20) Glucose 177 H (70-99) mg/dl Calcium 9.4 (8.5-10.1) mg/dl Magnesium 1.9 (1.8-2.4) mg/dl Total Bilirubin 0.4 (0.2-1) mg/dl AST 39 H (15-37) U/L ALT 71 (12-78) U/L Alkaline Phosphatase 123 H (45-117) U/L Troponin I < 0.015 (0-0.045) ng/ml Total Protein 8.4 H (6.4-8.2) gm/dl Albumin 4.3 (3.4-5.0) gm/dl Globulin 4.1 H (2.5-4.0) gm/dl Albumin/Globulin Ratio 1.1 (0.9-2) TSH 1.190 (0.300-4.500) uIu/ml Imaging Data Radiologist's Impression: Radiology results as stated below per my review and the radiologist's interpretation: CT head/brain wo con CLINICAL HISTORY: weak, dizzy COMPARISON STUDY: 03/26/2018 TECHNIQUE: Axial CT of the brain is performed from the vertex to the skull base. IV contrast was not administered for this examination. A dose lowering technique was utilized adhering to the principles of ALARA. CT DOSE: 720.23 mGy.cm FINDINGS: No intra or extra-axial mass lesions are visualized. There is no CT evidence of acute cortical infarction. There is no evidence of midline shift. There is no acute hemorrhage. No calvarial fractures are visualized. There are patchy white matter hypodensities likely on a small vessel basis. There is an old infarct involving the left external capsule and basal ganglia. There is an old right cerebellar infarct. There is no evidence of pathologic ventricular dilatation. There is no evidence of acute sinusitis IMPRESSION: No acute intracranial findings Electronically signed by: Danilo Galo M.D. 11/22/2018 10:18 PM MRI HEAD No acute infarction. Scattered chronic lacunar infarctions. Chronic white matter changes. Radiologist: Marko Barros MD Study ready at 00:16 and initial results transmitted at 00:20 ECG Data Attestation: I personally reviewed and interpreted this ECG as follows: Indication: other (Dizziness) Rate (beats per minute): 78 Rhythm: normal sinus Findings: + other (LVH is present) and + 1st degree AV block; no PVC and no ST elevation Blood Pressure Blood Pressure Findings: Elevated blood pressure Blood Pressure Disposition: further management by hospitalist MDM Narrative There is no leukocytosis or concerning anemia. No significant electrolyte abnormality or kidney failure. There were a few very subtle liver enzyme elevations. The patient appears to be in a euthyroid state. EKG shows a sinus rhythm, no acute ischemia. Cardiac enzyme testing x1 is not consistent with acute cardiac injury. Brain CT shows no acute bleed or mass-effect. Brain MRI does not show any evidence for acute CVA. On exam, there were no focal neurologic deficits. The patient was off balance and quite dizzy though. Urinalysis result is pending. Patient received IV saline, IV Ativan, IV Zofran and oral meclizine. Despite these medications, the patient still feels very off balance and dizzy when she tries to stand or move. The patient is not stable for discharge home. She is quite off balance. She appears to have a severe case of vertigo. No findings of stroke by MRI. I did speak to the patient about her results, I talked with case management. The on- call hospitalist was consulted. Impression & Plan Stroke-like symptoms, Vertigo Discharge Plan Visit Data Chief Complaint: Dizziness Stated Complaint: DIZZY, HEAD FEELS FUNNY ED Provider: Andrez Cota Discharge Problem: Stroke-like symptoms, Vertigo Patient Disposition: Being Evaluated by Hospitalist Forms Stand Alone Forms: My [facility] [place] [employer] Prescriptions Prescriptions: No Action multivitamin Tablet 1 tab PO DAILY RF: 0 atorvastatin 40 mg tablet 40 mg PO DAILY RF: 0 levothyroxine 137 mcg Tablet 137 mcg PO DAILY RF: 0 clopidogrel 75 mg tablet 75 mg PO DAILY RF: 0 pantoprazole 20 mg Tablet,Delayed Release (Dr/Ec) 20 mg PO DAILY RF: 0 cranberry 500 mg Capsule 500 mg PO DAILY RF: 0 lutein 20 mg Capsule 20 mg PO DAILY RF: 0 sitagliptin [Januvia] 100 mg Tablet 100 mg PO DAILY RF: 0 calcium carbonate-vitamin D3 600 mg(1,500mg) -400 unit Tablet 1 tab PO DAILY RF: 0 teriparatide [Forteo] 20 mcg/dose - 600 mcg/2.4 mL pen injector 20 mcg subcut DAILY RF: 0 cholecalciferol (vitamin D3) [Vitamin D3] 5,000 unit Tablet 5,000 unit PO DAILY RF: 0 omega 1-axy-bap-fish oil [Fish Oil] 1,000 mg (120 mg-180 mg) Capsule 1 cap PO DAILY RF: 0 liraglutide [Victoza 2-Vivek] 0.6 mg/0.1 mL (18 mg/3 mL) Pen Injector 1.2 unit SUBCUT DAILY RF: 0 Referrals Referrals: Heidi Lim, [Primary Care Provider] - The scribe's documentation has been prepared under my direction and personally reviewed by me in its entirety. I confirm that the note above accurately reflects all work, treatment, procedures, and medical decision making performed by me.
[2018-11-22 21:58] LABS: Basophils # (auto) 0.02 K/uL (0-0.2); Basophils % (auto) 0.3 %; Eosinophils # (auto) 0.09 K/uL (0-0.5); Eosinophils % (auto) 1.5 %; Hematocrit (blood only) 37.6 % (37-47); Hemoglobin 12.5 g/dL (12.0-16.0); Immature Granulocytes # (auto) 0.01 K/uL (0.00-0.02); Immature Granulocytes % (auto) 0.2 %; Lymphocytes # (auto) 1.82 K/uL (1.2-3.4); Lymphocytes % (auto) 30.2 %; Mean Corpuscular Hgb Conc 33.2 g/dL (32-36); Mean Corpuscular Volume 79.2 fL (80-100); Mean Platelet Volume 9.1 fL (7.4-10.4); Monocytes # (auto) 0.42 K/uL (0.11-0.59); Neutrophils # (auto) 3.67 K/uL (1.4-6.5); Neutrophils % (auto) 60.8 %; Platelet Count 201 K/uL (130-400); RDW Coefficient of Variation 15.8 % (11.5-14.5); RDW Standard Deviation 45.7 fL (36.4-46.3); Red Blood Count 4.75 M/uL (4.2-5.4); White Blood Count 6.03 K/uL (4.8-10.8)
[2018-11-22 22:18] LABS: Alanine Aminotransferase 71 U/L (12-78); Albumin Level 4.3 gm/dl (3.4-5.0); Aspartate Aminotransferase 39 U/L (15-37); BUN Creatinine Ratio 9.3 (10-20); Blood Urea Nitrogen 8 mg/dl (7-18); Calcium 9.4 mg/dl (8.5-10.1); Carbon Dioxide 26 mmol/L (21-32); Chloride 102 mmol/L (98-107); Creatinine Clr Calc Pharmacy 51.6 ml/min; Est GFR (African American) 74.6; Est GFR (Non-African American) 64.3; Glucose 177 mg/dl (70-99); Magnesium 1.9 mg/dl (1.8-2.4); Potassium 3.6 mmol/L (3.5-5.1); Sodium 137 mmol/L (136-145)
--- NOTE | 2018-11-22 22:20 | CT Scan Report ---
CT head/brain wo con CLINICAL HISTORY: weak, dizzy COMPARISON STUDY: 03/26/2018 TECHNIQUE: Axial CT of the brain is performed from the vertex to the skull base. IV contrast was not administered for this examination. A dose lowering technique was utilized adhering to the principles of ALARA. CT DOSE: 720.23 mGy.cm FINDINGS: No intra or extra-axial mass lesions are visualized. There is no CT evidence of acute cortical infarc tion. There is no evidence of midline shift. There is no acute hemorrhage. No calvarial fractures ar e visualized. There are patchy white matter hypodensities likely on a small vessel basis. There is an old infarct i nvolving the left external capsule and basal ganglia. There is an old right cerebellar infarct. There is no evidence of pathologic ventricular dilatation. There is no evidence of acute sinusitis IMPRESSION: No acute intracranial findings Electronically signed by: Danilo Galo M.D. 11/22/2018 10:18 PM
[2018-11-22 22:28] LABS: Albumin Globulin Ratio 1.1 (0.9-2); Alkaline Phosphatase 123 U/L (45-117); Bilirubin,Total 0.4 mg/dl (0.2-1); Globulin 4.1 gm/dl (2.5-4.0); Total Protein 8.4 gm/dl (6.4-8.2); Troponin I < 0.015 ng/ml (0-0.045)
[2018-11-22] MEDS ORDERED: SODIUM CHLORIDE 0.9% 500 ML IV STA (22:33)
--- NOTE | 2018-11-23 01:40 | History & Physical Report ---
Date of Service November 23, 2018 Assessment & Plan (1) Stroke-like symptoms: Patient with history of CVA as well as DM. MRI negative for CVA. ?TIA vs Vertigo * CTA head and neck * Neurology consultation * PT/OT evaluation * Meclizine 25mg po BID PRN * Continue Plavix and Lipitor * Present on Admission?: Yes (2) Diabetes: Blood sugar 177 today. AIC=6.8 on 08/08/18 * Continue home medication regimen, Victoza, Januvia * Monitor blood sugars * Present on Admission?: Yes (3) Hypothyroid: TSH=1.19 * Continue Synthroid F/E/N - Heplock. Monitor electrolytes and replete as needed. CC diet as tolerated after bedside swallow evaluation. Aspiration and fall precautions. Continue Supplements and vitamins at home dosages Ppx - Protonix, SCDs Code -Full per discussion with patient Dispo - Observation to medical floor with tele Present on Admission?: Yes History of Present Illness Chief Complaint: Dizzy Primary Care Provider: Heidi Lim DO Mrs. Bell is a 73yo C female with history of DM, Hypothyroidism, prior CVA on Plavix and Lipitor presenting with dizziness. Patient was sitting down yesterday 11/22/18 around 14:30 when she became acutely dizzy, feeling the room spin as well as fatigue and nausea. She denies headache, numbness/tingling or weakness. Sensation persisted so came to the ER. CT head and MRI brain negative for acute intracranial process/CVA No additional complaints at this time. ER Course: Meclizine 25mg, Zofran 4mg IV, NSS x 1.5L, Ativan 0.5mg Allergies Allergy/AdvReac Type Severity Reaction Status Date / Time levofloxacin AdvReac Unknown FEELS SICK Verified 11/23/18 00:48 oxycodone AdvReac Unknown "GETS SICK" Verified 11/23/18 00:48 Home Medications Home Medications Medication Instructions Recorded Confirmed Type atorvastatin 40 mg PO DAILY 11/23/18 11/23/18 History calcium carbonate-vitamin D3 1 tab PO DAILY 11/23/18 11/23/18 History cholecalciferol (vitamin D3) 5,000 unit PO DAILY 11/23/18 11/23/18 History [Vitamin D3] clopidogrel 75 mg PO DAILY 11/23/18 11/23/18 History cranberry 500 mg PO DAILY 11/23/18 11/23/18 History levothyroxine 137 mcg PO DAILY 11/23/18 11/23/18 History liraglutide [Victoza 2-Vivek] 1.2 unit SUBCUT DAILY 11/23/18 11/23/18 History lutein 20 mg PO DAILY 11/23/18 11/23/18 History multivitamin 1 tab PO DAILY 11/23/18 11/23/18 History omega 8-aki-zuw-fish oil [Fish Oil] 1 cap PO DAILY 11/23/18 11/23/18 History pantoprazole 20 mg PO DAILY 11/23/18 11/23/18 History sitagliptin [Januvia] 100 mg PO DAILY 11/23/18 11/23/18 History teriparatide [Forteo] 20 mcg SUBCUT DAILY 11/23/18 11/23/18 History Past Med/Surg History Medical History Stroke Scalp hematoma (Acute) Fall (on) (from) other stairs and steps, initial encounter (Acute) Closed head injury without loss of consciousness (Acute) Hx of vertigo Left wrist sprain (Acute) Laceration of scalp without foreign body (Acute) Closed fracture of anatomical neck of left humerus (Acute) Fracture of humeral head, left, closed Pre-syncope Contusion of multiple sites (Acute) Fall (Acute) Closed rib fracture (Acute) Contusion of finger, left (Acute) Diabetes Hypothyroid Surgical History Hx of appendectomy (Chronic) S/P cholecystectomy Family History Other Family history non-contributory Social History Feels Safe at Home: Yes Smoking Status: Never smoker Hx Alcohol Use: No Hx Substance Use: No Preferred Language: Lithuanian Review of Systems All systems reviewed & are unremarkable except as noted in HPI & below Physical Exam 2 Vital Signs (Past 24 Hours): Last Vital Signs Temp 36.7 C 11/22/18 20:42 Pulse 85 11/23/18 00:18 Resp 14 11/23/18 00:18 BP 149/71 H 11/23/18 00:18 Pulse Ox 95 11/23/18 00:18 Physical Exam: General: patient resting comfortably, NAD, non-toxic in appearance, AA&O x 4 Skin: warm, dry, intact, no rashes or lesions HEENT: NC/AT, PERRL, EOMI, anicteric sclera, conjunctiva without injection, external ear normal to inspection and nontender, nares patent, moist mucus membranes, dentition intact, no oropharyngeal lesions, neck supple, trachea midline, no LAD, no thyromegaly, no JVD Heart: +S1/S2, regular, no m/r/g Lungs: equal air entry bilaterally, no rales/rhonchi/wheezes Abd: +BS, soft, NT/ND, no masses/organomegaly/ascites Ext: warm, 2+ pulses in UE/LE bilaterally, no clubbing/cyanosis or edema Neuro: AA&Ox4, speech clear and fluent, CN II - XII grossly intact, horizontal nystagmus noted with EOM testing, sensation to light touch intact in UE/LE bilaterally, MS 5/5 in UE/LE bilaterally with exception of slightly decreased handgrip in the left 4+/5 which patient states is normal, dysmetria with finger to nose, patient unable to ambulate secondary to dizziness Results & Data Laboratory Results Lab Results 11/22/18 11/22/18 Range/Units 21:45 21:45 WBC 6.03 (4.8-10.8) K/uL RBC 4.75 (4.2-5.4) M/uL Hgb 12.5 (12.0-16.0) g/dL Hct 37.6 (37-47) % MCV 79.2 L (80-100) fL MCH 26.3 (25-34) pg MCHC 33.2 (32-36) g/dL RDW Std Deviation 45.7 (36.4-46.3) fL RDW Coeff of Lu 15.8 H (11.5-14.5) % Plt Count 201 (130-400) K/uL MPV 9.1 (7.4-10.4) fL Immature Gran % (Auto) 0.2 % Neut % (Auto) 60.8 % Lymph % (Auto) 30.2 % [place] % (Auto) 7.0 % Eos % (Auto) 1.5 % Baso % (Auto) 0.3 % Immature Gran # (Auto) 0.01 (0.00-0.02) K/uL Neut # (Auto) 3.67 (1.4-6.5) K/uL Lymph # (Auto) 1.82 (1.2-3.4) K/uL [place] # (Auto) 0.42 (0.11-0.59) K/uL Eos # (Auto) 0.09 (0-0.5) K/uL Baso # (Auto) 0.02 (0-0.2) K/uL Sodium 137 (136-145) mmol/L Potassium 3.6 (3.5-5.1) mmol/L Chloride 102 (98-107) mmol/L Carbon Dioxide 26 (21-32) mmol/L Anion Gap 9.0 (3-11) BUN 8 (7-18) mg/dl Creatinine 0.90 (0.6-1.2) mg/dl Est Cr Clr Drug Dosing 51.6 ml/min Est GFR ( Amer) 74.6 Est GFR (Non-Af Amer) 64.3 BUN/Creatinine Ratio 9.3 L (10-20) Glucose 177 H (70-99) mg/dl Calcium 9.4 (8.5-10.1) mg/dl Magnesium 1.9 (1.8-2.4) mg/dl Total Bilirubin 0.4 (0.2-1) mg/dl AST 39 H (15-37) U/L ALT 71 (12-78) U/L Alkaline Phosphatase 123 H (45-117) U/L Troponin I < 0.015 (0-0.045) ng/ml Total Protein 8.4 H (6.4-8.2) gm/dl Albumin 4.3 (3.4-5.0) gm/dl Globulin 4.1 H (2.5-4.0) gm/dl Albumin/Globulin Ratio 1.1 (0.9-2) TSH 1.190 (0.300-4.500) uIu/ml Diagnostic Findings MRI Brain - no acute infarct. Scattered chronic lacunar infarcts CT head/brain wo con CLINICAL HISTORY: weak, dizzy COMPARISON STUDY: 03/26/2018 TECHNIQUE: Axial CT of the brain is performed from the vertex to the skull base. IV contrast was not administered for this examination. A dose lowering technique was utilized adhering to the principles of ALARA. CT DOSE: 720.23 mGy.cm FINDINGS: No intra or extra-axial mass lesions are visualized. There is no CT evidence of acute cortical infarction. There is no evidence of midline shift. There is no acute hemorrhage. No calvarial fractures are visualized. There are patchy white matter hypodensities likely on a small vessel basis. There is an old infarct involving the left external capsule and basal ganglia. There is an old right cerebellar infarct. There is no evidence of pathologic ventricular dilatation. There is no evidence of acute sinusitis IMPRESSION: No acute intracranial findings Electronically signed by: Danilo Galo M.D. 11/22/2018 10:18 PM ECG Additional Comments: The study shows NSR with 1st degree AV block, LAD, NN=798, PNX=273, NVc=890. No acute ischemic changes Code Status & VTE Plan Code Status full VTE Prophylaxis Plan VTE Prophylaxis will be ordered: Yes Critical Care Time Critical Care Time: No _ (1) Diabetes Diabetes mellitus type: type 2 Diabetes mellitus detention insulin use: with detention use Diabetes mellitus complication status: without complication Qualified Code(s): E11.9 - Type 2 diabetes mellitus without complications; Z79.4 - [facility] (current) use of insulin (2) Hypothyroid Hypothyroidism type: unspecified Qualified Code(s): E03.9 - Hypothyroidism, unspecified
[2018-11-23] MEDS ORDERED: DEXTROSE 50% 50 ML SYRINGE IV PRN (02:34)
[2018-11-23] MEDS ORDERED: GLUCAGON FOR INJ 1 MG VIAL SQ PRN (02:34)
[2018-11-23] MEDS ORDERED: ONDANSETRON INJ 2 MG/ML 2 ML VIAL IV PRN (02:34)
[2018-11-23] MEDS ORDERED: GLUCOSE 40% GEL 15 GM TUBE PO PRN (02:34)
[2018-11-23] MEDS ORDERED: GLUCOSE 10 TABS/TUBE PO PRN (02:34)
[2018-11-23] MEDS ORDERED: MECLIZINE HCL 25 MG TAB PO PRN (02:34)
[2018-11-23] MEDS ORDERED: ACETAMINOPHEN 325 MG TAB PO PRN (02:34)
[2018-11-23] MEDS ORDERED: CARBOHYDRATES FOR HYPOGLYCEMIA PO PRN (02:34)
[2018-11-23] MEDS ORDERED: PHARMACIST DISCHARGE MED REC CONSULT PRN (02:34)
[2018-11-23 03:19] LABS: Appearance Urine Clear (Clear); Bilirubin Urine Negative (Negative); Color Urine Yellow; Glucose Urine UA 1+ (Negative); Ketones Urine 1+ (Negative); Leukocyte Esterase Urine Negative (Negative); Nitrite Urine Negative (Negative); Protein Urine Negative (Negative); Specific Gravity Urine 1.011 (1.000-1.030); Urobilinogen Urine Negative (Negative)
[2018-11-23 03:23] LABS: BUN Creatinine Ratio 8.1 (10-20); Calcium 8.8 mg/dl (8.5-10.1); Creatinine Clr Calc Pharmacy 51.6 ml/min; Est GFR (African American) 74.6; Est GFR (Non-African American) 64.3; Magnesium 1.6 mg/dl (1.8-2.4); Potassium 3.7 mmol/L (3.5-5.1)
[2018-11-23 03:26] LABS: Phosphorus 2.8 mg/dl (2.5-4.9)
[2018-11-23] MEDS ORDERED: LEVOTHYROXINE SODIUM 137 MCG TABLET PO SCH (06:30)
--- NOTE | 2018-11-23 06:42 | Magnetic Resonance Report ---
MR brain wo con HISTORY: Mental status change dizzy, poss stroke TECHNIQUE: Multiplanar multisequence MRI of the brain was performed without the use of contrast. COMPARISON STUDY: 05/19/2017 FINDINGS: There are no areas of restricted diffusion to suggest acute infarction. The midline structu res are intact. The paranasal sinuses are clear. The mastoid air cells are clear. The ventricles and sulci are within normal limits for age. There is no mass, hematoma, midline shift. The major vascular flow-voids at the skull base are well maintained. Considerable chronic small vessel change. Atrophy. IMPRESSION: No acute intracranial abnormality. Age-related atrophy and considerable chronic small vessel change. The above report was generated using voice recognition software. It may contain grammatical, syntax or spelling errors. Electronically signed by: Benitez Guzman M.D. 11/23/2018 6:41 AM
[2018-11-23] MEDS: VICTOZA~ORDER AWAITING ACTION SCH ×2 (07:40→14:08)
[2018-11-23] MEDS ORDERED: PANTOprazole 40 MG TAB PO SCH (09:00)
[2018-11-23] MEDS ORDERED: NON-FORMULARY MEDICATION (Cranberry [Cranberry] 500 MG) PO SCH (09:00)
[2018-11-23] MEDS ORDERED: NON-FORMULARY MEDICATION (Lutein [Lutein] 20 MG) PO SCH (09:00)
[2018-11-23] MEDS ORDERED: SITAGLIPTIN PHOSPHATE 100 MG TAB PO SCH (09:00)
[2018-11-23] MEDS ORDERED: MULTIVITAMIN TAB PO SCH (09:00)
[2018-11-23] MEDS ORDERED: OMEGA DHA EPA FISH OIL PO SCH (09:00)
[2018-11-23] MEDS ORDERED: CALCIUM 600MG + VIT D 400 IU TAB PO SCH (09:00)
[2018-11-23] MEDS ORDERED: CLOPIDOGREL BISULFATE 75 MG TAB PO SCH (09:00)
[2018-11-23] MEDS ORDERED: ATORVASTATIN 40 MG TAB PO SCH (09:00)
[2018-11-23] MEDS ORDERED: CHOLECALCIFEROL 1,000 UNITS TAB PO SCH (09:00)
--- NOTE | 2018-11-23 10:33 | Neurology Consultation ---
Date of Consultation November 23, 2018 Assessment & Plan (1) Vertigo: This is a 73-year-old female who presents with signs and symptoms consistent with peripheral vertigo. I do not think that her symptoms represented a TIA. No additional recommendations at this time. Treat symptomatically and if issues with ongoing vertigo, recommend physical therapy. Thank you for allowing me to participate in this patient's care. If there is any questions or concerns, feel free to call/page me. History of Present Illness Reason for Consultation: TIA versus vertigo Attending Physician: Erika Laboy MD History of Present Illness This is a 73-year-old female who presents for severe vertigo symptoms. Previously by myself in 2016 and 2017 regarding multifocal ischemic strokes. Has residual mild cognitive impairment. Has had previous EEG which was unremarkable and neuropsychology testing. Patient has been following with cardiology with an implantable loop recorder looking for cardiac arrhythmias but nothing has been found so far. Patient has not had any additional syncopal events since 2017. Patient reports she has had a history of vertigo in the past but not as severe as the episode that she had yesterday on day of presentation. She reports severe spinning sensation. Made her nauseous. Reports that movement made it worse so she tried to lay down and stay still. When it did not go away after a few hours she came to the emergency room for evaluation and treatment. No new numbness. No focal weakness. No trouble with her speech or swallowing. No facial symptoms other than having itchy irritated eyes. She does report some tinnitus but no significant hearing loss. No ear pain. No recent viral symptoms, although she does report viral exposures. MRI of the brain is stable and no new ischemic strokes. Labs were essentially unremarkable. 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 No tobacco use Allergies Allergy/AdvReac Type Severity Reaction Status Date / Time levofloxacin AdvReac Unknown FEELS SICK Verified 11/23/18 00:48 oxycodone AdvReac Unknown "GETS SICK" Verified 11/23/18 00:48 Home Medications Home Medications Medication Instructions Recorded Confirmed Type atorvastatin 40 mg PO DAILY 11/23/18 11/23/18 History calcium carbonate-vitamin D3 1 tab PO DAILY 11/23/18 11/23/18 History cholecalciferol (vitamin D3) 5,000 unit PO DAILY 11/23/18 11/23/18 History [Vitamin D3] clopidogrel 75 mg PO DAILY 11/23/18 11/23/18 History cranberry 500 mg PO DAILY 11/23/18 11/23/18 History levothyroxine 137 mcg PO DAILY 11/23/18 11/23/18 History liraglutide [Victoza 2-Vivek] 1.2 unit SUBCUT DAILY 11/23/18 11/23/18 History lutein 20 mg PO DAILY 11/23/18 11/23/18 History multivitamin 1 tab PO DAILY 11/23/18 11/23/18 History omega 6-jub-btd-fish oil [Fish Oil] 1 cap PO DAILY 11/23/18 11/23/18 History pantoprazole 20 mg PO DAILY 11/23/18 11/23/18 History sitagliptin [Januvia] 100 mg PO DAILY 11/23/18 11/23/18 History teriparatide [Forteo] 20 mcg SUBCUT DAILY 11/23/18 11/23/18 History Patient History Medical History Stroke Scalp hematoma (Acute) Fall (on) (from) other stairs and steps, initial encounter (Acute) Closed head injury without loss of consciousness (Acute) Hx of vertigo Left wrist sprain (Acute) Laceration of scalp without foreign body (Acute) Closed fracture of anatomical neck of left humerus (Acute) Fracture of humeral head, left, closed Pre-syncope Contusion of multiple sites (Acute) Fall (Acute) Closed rib fracture (Acute) Contusion of finger, left (Acute) Diabetes Hypothyroid Surgical History Hx of appendectomy (Chronic) S/P cholecystectomy Family History Other Family history non-contributory Social History Current Living Situation: Family Other Information That Helps Us Care for You: No Feels Safe at Home: Yes Safety Concerns: Feels Safe At This Time Smoking Status: Never smoker Hx Alcohol Use: No Hx Substance Use: No Beliefs That Will Affect Care: None Preferred Language: Maori Communication Ability: Effective Auto Polisher Required: Yes and No Review of Systems Complete review of systems otherwise negative except for the above-noted in HPI Physical Exam 2 Vital Signs (Past 24 Hours): Last Vital Signs Temp 36.5 C 11/23/18 07:18 Pulse 87 11/23/18 07:30 Resp 18 11/23/18 07:18 BP 126/72 11/23/18 07:18 Pulse Ox 96 11/23/18 07:18 Physical Exam: Gen.: Patient is alert and oriented in no acute distress lying in bed Heart: Regular rate and rhythm Extremities: No gross deformities or rashes noted Neurological examination: Mental status: Patient is alert and oriented to person place and time. Able to give his own history. Attention concentration normal for the situation. Remote and recent memory intact Speech is fluent without any dysarthria or aphasia noted Cranial nerves: Visual lwo intact. Funduscopic examination was unremarkable with no signs of papilledema. Pupils equally round and reactive to light. Extraocular muscles intact without nystagmus. No facial asymmetry noted. Facial sensation intact. Tongue midline. Good palatal elevation. Good shoulder shrug bilaterally. Hearing grossly intact voice. Strength: 5/5 both proximal and distal in all extremities. No arm drift.Tone is normal. Sensation: Grossly intact to light touch in all extremities Deep tendon reflexes: +2 in bilateral biceps and patellar. Toes are equivocal to plantar stimulation bilaterally Coordination: Patient has good finger to nose without dysmetria. Station within the bed is normal.
[2018-11-23] MEDS: MAGNESIUM SULFATE / D5W 1 GM/100 ML BAG IV SCH ×2 (11:06→12:05)
[2018-11-23] MEDS ORDERED: IOVERSOL 100ml IV PRN (12:57)
--- NOTE | 2018-11-23 13:18 | CT Scan Report ---
CT angio head wo/w HISTORY: Mental status change dizziness TECHNIQUE: Multiaxial CT angiography of the head was performed IV contrast: 100 cc Maximum i ntensity projection images were also obtained. A dose lowering technique was utilized adhering to th e principles of ALARA. COMPARISON: None. FINDINGS: There is no mass, hematoma, midline shift, or acute infarct. There are findings of consider able chronic small vessel change, a small old right cerebellar infarct, as well as a probable old lef t frontal infarct. No evidence for acute intracranial hemorrhage. Visualized intracranial internal ca rotid arteries, distal vertebral arteries, and basilar artery are patent. There is no significant hector nosis, occlusion, or aneurysm seen within the bilateral ACAs, MCAs, or program director cable television. There are findings of mo derate atherosclerotic narrowing of components of the anterior cerebral circulation, right middle cer ebral circulation, as well as components of the vertebral basilar system. Multifocal areas of narrowi ng of approximately 50% are present. There is no evidence for high-grade or critical stenosis. IMPRESSION: 1. Moderate atherosclerotic narrowing of the multifocal areas of the [place]. 2. The degree of narrowing does not exceed 50% at any location. 3. All major components of the anterior middle and posterior cerebral circulation are involved. 4. No acute intracranial hemorrhage. 5. Several old cerebral infarcts as described. The above report was generated using voice recognition software. It may contain grammatical, syntax or spelling errors. Electronically signed by: Benitez Guzman M.D. 11/23/2018 1:16 PM
--- NOTE | 2018-11-23 13:31 | CT Scan Report ---
CT ANGIOGRAPHY OF THE NECK WITH CONTRAST CLINICAL HISTORY: Dizziness. COMPARISON STUDY: MRA of the neck January 28, 2016. Technique: CT angiography of the carotid and vertebral arteries was obtained using OptiraATEME 320 IV and 3D reconstruction on an independent workstation. NASCET criteria was utilized. Automated exposure c ontrol was utilized for the study. A dose lowering technique was utilized adhering to the principles of ALARA. CT DOSE: 1050.66 mGy.cm Findings: Lung apices are clear. There is no cervical lymphadenopathy. There is no cervical spine fra cture. No mucosal lesion is identified although these may be occult by CT. There is mild atherosclero tic plaque within the proximal bilateral internal carotid arteries without significant stenosis. Ther e is no stenosis within the bilateral common carotid arteries. There is no dissection within the precious r vessels of the neck. The cervical portions of the bilateral vertebral arteries are patent. There is severe stenosis of the proximal intracranial portion of the right vertebral artery. There is suspect ed occlusion versus severe stenosis of the distal intracranial portion of the right vertebral artery as well as the proximal basilar artery which is diminutive. There is distal reconstitution of the bas ilar artery. The distal intracranial portion of the left vertebral artery also appears to be occluded . Of note, the bilateral posterior cerebral arteries are largely supplied by the anterior circulation . IMPRESSION: 1. Mild atherosclerotic plaque within the proximal bilateral internal carotid arteries without signif icant stenosis within these vessels. 2. 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 Of note, the bilateral posterior cerebral arteries are largely supplied by the anterior circulation. Electronically signed by: Caleb Castañeda M.D. 11/23/2018 1:29 PM
--- NOTE | 2018-11-23 16:27 | Discharge Summary ---
Date of Service November 23, 2018 Admission HPI Per Admitting Provider Mrs. Bell is a 73yo C female with history of DM, Hypothyroidism, prior CVA on Plavix and Lipitor presenting with dizziness. Patient was sitting down yesterday 11/22/18 around 14:30 when she became acutely dizzy, feeling the room spin as well as fatigue and nausea. She denies headache, numbness/tingling or weakness. Sensation persisted so came to the ER. CT head and MRI brain negative for acute intracranial process/CVA No additional complaints at this time. ER Course: Meclizine 25mg, Zofran 4mg IV, NSS x 1.5L, Ativan 0.5mg Principal Diagnosis BPPV Discharge Exam Constitutional WD/WN, vitals as above Eyes PERRL, conjunctivae normal, anicteric sclerae ENMT external ear and nose normal, oropharynx normal Neck trachea midline, no thyromegaly Respiratory normal respiratory effort, lungs clear to auscultation Cardiovascular RRR, no murmur, no edema Gastrointestinal (Abdomen) normal bowel sounds, soft, nontender, no hepatosplenomegaly Musculoskeletal Extremities: extremities normal to inspection; no cyanosis and no clubbing Skin no rashes, warm and dry Neurologic moves all extremities and awake; no focal motor deficits Psychiatric A+Ox3, euthymic affect Discharge Data Allergies Allergy/AdvReac Type Severity Reaction Status Date / Time levofloxacin AdvReac Unknown FEELS SICK Verified 11/23/18 00:48 oxycodone AdvReac Unknown "GETS SICK" Verified 11/23/18 00:48 Consultations Neurology Procedures Performed Loop Recorder interrogation Ordered Studies 11/22/18 20:55 CT head/brain wo con Stat 11/22/18 22:40 MR brain wo con Urgent 11/23/18 02:34 CT angio head wo/w Routine CT angio neck with con Routine Hospital Course (1) Vertigo: Admitted with dizziness for workup for acute CVA given her history of CVA as well as DM. MRI negative for CVA. CTA head and neck with significant stenoses but with collaterals from anterior circulation to posterior and not cause of her dizziness, no intervention needed Neurology consultation obtained and thinks she had BPPV PT/OT evaluation performed and stable for discharge to home All of her symptoms resolved and she was ambulating, tolerating po at time of discharge Loop recorder interrogated and no significant events (2) Diabetes: AIC=6.8 on 08/08/18 * Continue home medication regimen with Ines Sesay (3) Hypothyroid: TSH=1.19 * Continue Synthroid (4) History of CVA (cerebrovascular accident): old CVAs known seen on MRI. -continue ASA, statin, DM control (5) GERD (gastroesophageal reflux disease): continue PPI (6) Osteoporosis: continue FOrteo (7) DVT prophylaxis: SCDs Dispo-stable for dc to home Total Time Total Time Spent Total Time Spent (In Minutes): >30 min Total Time Includes: Examination of the Patient, Discharge Planning, Medication Reconciliation and Communication With Other Providers (Neurology) Discharge Plan Discharge Items Patient Disposition: Home - Self-Care Reason For Visit: DIZZINESS Discharge Diagnosis: Vertigo Condition: Good Discharge Goals: Diagnostic testing and Learn about illness Activity: Resume your previous activity Lifting: Gradually increase as tolerated Bathing: No limitations Exercise/Sports: Gradually increase as tolerated Non-emergency contact: Primary Care Provider Call non-emergency contact if: you have any medication questions and your symptoms worsen Follow-up/Referrals: Heidi Lim, [Primary Care Provider] - 12/05/18 10:20 am (Please, follow up in Dr. Lim's office with her associate, Broderick SILVESTRE, on WednesdayDecember 05 at 10:20 am. *This office is located in [place] next to [facility]. If you need to change this appointment, call their office at [phone].) Diet: Carb Consistent or DM2 and Heart Healthy Addtl Provider Instructions: You were admitted with dizziness. You had testing which showed you did NOT have a new stroke. This is most likely from vertigo which can be treated with physical therapy maneuvers. It seems to have resolved and you can be discharged to home. Please follow up with your PCP as scheduled for you. Prescriptions: Continue multivitamin Tablet 1 tab PO DAILY RF: 0 atorvastatin 40 mg tablet 40 mg PO DAILY RF: 0 levothyroxine 137 mcg Tablet 137 mcg PO DAILY RF: 0 clopidogrel 75 mg tablet 75 mg PO DAILY RF: 0 pantoprazole 20 mg Tablet,Delayed Release (Dr/Ec) 20 mg PO DAILY RF: 0 cranberry 500 mg Capsule 500 mg PO DAILY RF: 0 lutein 20 mg Capsule 20 mg PO DAILY RF: 0 sitagliptin [Januvia] 100 mg Tablet 100 mg PO DAILY RF: 0 calcium carbonate-vitamin D3 600 mg(1,500mg) -400 unit Tablet 1 tab PO DAILY RF: 0 teriparatide 20 mcg/dose - 600 mcg/2.4 mL pen injector 20 mcg subcut DAILY RF: 0 cholecalciferol (vitamin D3) [Vitamin D3] 5,000 unit Tablet 5,000 unit PO DAILY RF: 0 omega 7-noz-xro-fish oil [Fish Oil] 1,000 mg (120 mg-180 mg) Capsule 1 cap PO DAILY RF: 0 liraglutide [Victoza 2-Vivek] 0.6 mg/0.1 mL (18 mg/3 mL) Pen Injector 1.2 unit SUBCUT DAILY RF: 0 Stand-Alone Forms: [facility] Discharge Orders: Discharge Order (Routine); Ordered 11/23/18 Ordered By: Erika Laboy Admission Data Admit Date/Time: 11/23/18 01:28 Attending Provider: Erika Laboy Admit Provider: Carine Glynn Primary Care Provider: Heidi Lim Other Providers: Carine Glynn ; Nolan Crow ; Roel Goodman III ; Kiera Pompa ; Devora Singh ; Pranav Myrick Service: Telemetry Medical Other Pending Studies at Discharge: No
== END 2018-11-23 17:42 | disposition home or self-care (01) ==
LOC: 2N 20:37 → ED 20:37 → SUATTDRO 11-23 01:28 → 2N 11-23 02:07

== ENCOUNTER 2021-04-16 19:33 | Observation (INO) ==
[2021-04-16] MEDS ORDERED: SODIUM CHLORIDE 0.9% 1000ML 1,000 ML IV ONE (21:27)
--- NOTE | 2021-04-16 21:31 | Emergency Department Note ---
History of Present Illness General Chief complaint: Vomiting Stated complaint: HEADACHE, NAUSEA Time Seen by Provider: 04/16/21 21:10 Source: patient Mode of arrival: wheelchair Limitations: no limitations and altered mental status History of Present Illness Provider complaint: Nausea, vomiting, diarrhea Onset (ago): hour(s) Location: abdomen Associated symptoms: + diaphoresis, + fever/chills, + headaches, + loss of appetite, + malaise, + nausea/vomiting and + weakness; no chest pain and no shortness of breath Treatments prior to arrival: none This is a 75-year-old female presents emergency department complaining of abrupt onset nausea, vomiting, diarrhea. Patient states symptoms began abruptly earlier this evening. Patient states she has had similar episodes in the past, however no etiology was ever identified. Patient states the last episode was last summer in May. Patient has seen a GI specialist and had colonoscopy which did reveal polyps which were removed. Patient does have a history of diabetes. She denies any recent change in diet or medications. No known sick contact. He r has not recently been ill. Patient states she began with a sense of discomfort and went to the bathroom and began having diarrhea, shortly thereafter the nausea and vomiting followed. She denied any abdominal pain, chest pain, trouble breathing. Pt seen during a time of high acuity and national emergency pandemic while wearing PPE. Home Medications Medication Instructions Recorded Confirmed Type calcium carbonate-vitamin D3 1 tab PO DAILY 11/23/18 04/16/21 History cholecalciferol (vitamin D3) 5,000 unit PO DAILY 11/23/18 04/16/21 History [Vitamin D3] cranberry 500 mg PO DAILY 11/23/18 04/16/21 History multivitamin 1 tab PO DAILY 11/23/18 04/16/21 History omega 7-jod-kli-fish oil [Fish Oil] 1 cap PO DAILY 11/23/18 04/16/21 History vit C,E,zinc,copper-wxrcf3s 250 1 cap PO DAILY #30 cap 07/14/19 04/16/21 Rx mg-lutein 5 mg-zeaxanthin 1 mg capsule cinnamon bark [Cinnamon] 500 mg PO DAILY 07/31/19 04/16/21 History liraglutide 0.6 mg/0.1 mL (18 mg/3 1.8 mg SUBCUT DAILY #9 ml 07/08/20 04/16/21 Rx mL) subcutaneous pen injector atorvastatin 40 mg tablet 40 mg PO DAILY #90 tab 08/15/20 04/16/21 Rx clopidogrel 75 mg tablet 75 mg PO DAILY #90 tab 08/15/20 04/16/21 Rx levothyroxine 125 mcg tablet 125 mcg PO DAILY #90 tab 08/15/20 04/16/21 Rx pantoprazole 20 mg tablet,delayed 20 mg PO DAILY #90 tab 08/15/20 04/16/21 Rx release benzonatate 200 mg capsule 200 mg PO TID PRN #30 cap 11/21/20 04/16/21 Rx losartan 25 mg tablet 25 mg PO DAILY #90 tab 02/12/21 04/16/21 Rx amoxicillin 2,000 mg PO UD 04/16/21 04/16/21 History insulin lispro [Humalog KwikPen 5 - 7 unit SUBCUT QPM 04/16/21 04/16/21 History Insulin] ondansetron 8 mg PO Q8H 7 Days #21 tab 04/17/21 Rx Allergies Allergy/AdvReac Type Severity Reaction Status Date / Time oxycodone AdvReac Intermediate "GETS SICK" Verified 04/16/21 23:50 levofloxacin AdvReac Mild FEELS SICK Verified 04/16/21 23:50 Past Med/Surg History Medical History (Updated 04/18/21 @ 02:37 by Lyndsey Carmona DO) Anxiety Benign essential hypertension Closed fracture of anatomical neck of left humerus Closed head injury without loss of consciousness Closed rib fracture Diabetes mellitus, type 2 Fuchs' corneal dystrophy GERD (gastroesophageal reflux disease) History of CVA (cerebrovascular accident) Hypercholesterolemia Hypertension Hypothyroidism Lichen sclerosus et atrophicus MCI (mild cognitive impairment) with memory loss Mitral regurgitation Nonalcoholic fatty liver disease Osteoporosis Panic disorder without agoraphobia Type 2 diabetes with nephropathy Vertigo Vitamin D deficiency Surgical History H/O hysterectomy with oophorectomy H/O rectocele repair Hx of appendectomy S/P cholecystectomy Status post breast reduction Status post cataract surgery Status post surgery anterior colporrhaphy, Repair of cystocele Status post tonsillectomy Status post total shoulder arthroplasty Vaginal pessary present Family History Aunt Breast cancer Mother Diabetes Myocardial infarction Heart disease Father Heart trouble Prostate cancer Other Family history non-contributory Denies family history of Ovarian cancer Crohn's disease Dementia Lung cancer Colorectal cancer Social History Smoking Status: Never smoker Second Hand Exposure: No; Hx Alcohol Use: No Hx Substance Use: No Preferred Language: Armenian Communication Ability: Effective Visual Impairment: No Limitations Hearing Ability: Normal Escort Service Attendant Required: No Beliefs That Will Affect Care: None marital status: Current Living Situation: Spouse current occupational status: retired Feels Safe at Home: Yes Childhood Exposure to Second-Hand Smoke: Yes caffeine: Yes (Coffee x 3 per day.) during the past year weight has: remained stable Dental Care, Regularly: Yes Physical Activity Frequency: Daily Seatbelt Use: always Sunscreen Use: Yes Assistive Devices: None Review of Systems See HPI for pertinent positives & negatives. and A total of 10 systems reviewed and were otherwise negative Physical Exam Vital Signs Vital Signs - 24 hr 04/16/21 19:39 04/16/21 22:27 04/16/21 23:00 Temperature 36.3 C L Temperature Source Temporal Artery Scan Pulse Rate 95 H 93 H 97 H Pulse Rate from SpO2 Sensor 96 H Pulse Rhythm Regular Pulse Strength Normal Respiratory Rate 20 18 15 Respiratory Effort / Characteristics Non-Labored Spontaneous Respiratory Depth Normal Respiratory Pattern Regular Blood Pressure 143/78 H 134/71 123/67 Blood Pressure Mean 99 92 85 Blood Pressure Position Sitting Pulse Oximetry 96 97 93 Oxygen Delivery Method Room Air Room Air Sepsis Recent Fever Within 48 Hours No Sepsis New/Unexplained Change in Mental Status No Sepsis Action Taken by Nursing No Action Required 04/16/21 23:01 04/17/21 00:00 04/17/21 01:00 Temperature Temperature Source Pulse Rate 95 H 90 Pulse Rate from SpO2 Sensor 95 H 96 H 90 Pulse Rhythm Pulse Strength Respiratory Rate 17 24 15 Respiratory Effort / Characteristics Respiratory Depth Respiratory Pattern Blood Pressure 138/81 125/73 Blood Pressure Mean 100 90 Blood Pressure Position Pulse Oximetry 93 95 96 Oxygen Delivery Method Room Air Room Air Room Air Sepsis Recent Fever Within 48 Hours Sepsis New/Unexplained Change in Mental Status Sepsis Action Taken by Nursing 04/17/21 01:01 04/17/21 02:00 04/17/21 02:01 Temperature Temperature Source Pulse Rate 92 H 88 88 Pulse Rate from SpO2 Sensor 92 H 85 87 Pulse Rhythm Pulse Strength Respiratory Rate 17 16 16 Respiratory Effort / Characteristics Respiratory Depth Respiratory Pattern Blood Pressure 135/61 Blood Pressure Mean 85 Blood Pressure Position Pulse Oximetry 96 96 94 Oxygen Delivery Method Room Air Room Air Room Air Sepsis Recent Fever Within 48 Hours Sepsis New/Unexplained Change in Mental Status Sepsis Action Taken by Nursing GENERAL: alert, unwell appearing, well nourished, no distress, non-toxic, holding emesis bag EYE EXAM: normal conjunctiva, PERRL and EOM's grossly intact OROPHARYNX: no exudate, no erythema, lips, buccal mucosa, and tongue normal and mucous membranes are moist NECK: supple, no nuchal rigidity, no adenopathy, non-tender LUNGS: Clear to auscultation. Normal chest wall mechanics, no w/r/r HEART: no murmurs, S1 normal and S2 normal ABDOMEN: abdomen soft, non-tender, normo-active bowel sounds, no masses, no rebound or guarding. BACK: Back is symmetrical on inspection and there is no deformity, no midline tenderness, no CVA tenderness. SKIN: no rashes and no bruising UPPER EXTREMITIES: upper extremities are grossly normal. FROM, nml pulses b/l. LOWER EXTREMITIES: No pitting edema. FROM, nml pulses b/l. NEURO EXAM: Normal sensorium, cranial nerves II-XII grossly intact, normal speech, no gross weakness of arms, no gross weakness of legs. Gross sensation intact. Course Course 2336: Pt updated on results. Pt still nauseated. 0015: Discussed with . Administered Medications Discontinued Medications Atorvastatin Calcium (Atorvastatin 40 Mg Tab) 40 mg PO DAILY RODOLFO Stop: 05/17/21 08:59 Last Admin: 04/17/21 09:21 Dose: 40 mg Documented by: [id number] Clopidogrel Bisulfate (Clopidogrel Bisulfate 75 Mg Tab) 75 mg PO DAILY RODOLFO Stop: 05/17/21 08:59 Last Admin: 04/17/21 09:21 Dose: 75 mg Documented by: [id number] Enoxaparin Sodium (Enoxaparin Inj 40 Mg/0.4 Ml Syr) 40 mg SQ Q24H RODOLFO Stop: 05/17/21 05:59 Last Admin: 04/17/21 06:19 Dose: 40 mg Documented by: [id number] Famotidine (Famotidine 20mg/5ml Iv Push) 20 mg IV ONE STA Stop: 04/16/21 23:13 Last Admin: 04/16/21 23:27 Dose: 20 mg Documented by: [id number] Sodium Chloride (Nss 1000ml) 1,000 mls @ 999 mls/hr IV .Q1H1M ONE Stop: 04/16/21 22:27 Last Infusion: 04/16/21 22:43 Dose: 0 mls/hr Documented by: [id number] Admin: 04/16/21 21:42 Dose: 999 mls/hr Documented by: [id number] Sodium Chloride (Nss 1000ml) 1,000 mls @ 125 mls/hr IV .Q8H RODOLFO Stop: 05/16/21 23:14 Last Infusion: 04/17/21 03:13 Dose: 0 mls/hr Documented by: [id number] Admin: 04/16/21 23:29 Dose: 125 mls/hr Documented by: [id number] Potassium Chloride/Sodium Chloride (Normal Saline W/20 Meq Kcl) 20 meq in 1,000 mls @ 125 mls/hr IV .Q8H RODOLFO Stop: 04/17/21 19:59 Last Infusion: 04/17/21 14:43 Dose: 0 mls/hr Documented by: [id number] Admin: 04/17/21 13:05 Dose: 125 mls/hr Documented by: [id number] Infusion: 04/17/21 12:41 Dose: 125 mls/hr Documented by: [id number] Admin: 04/17/21 04:41 Dose: 125 mls/hr Documented by: [id number] Insulin Aspart (Insulin Aspart 100 Units/Ml 3 Ml Pen) 0 units SC ACHS RODOLFO Stop: 05/17/21 07:29 Last Admin: 04/17/21 13:11 Dose: Not Given Documented by: [id number] Admin: 04/17/21 09:22 Dose: 2 units Documented by: [id number] Cosigned by: [id number] Insulin Glargine (Insulin Glargine Solostar 100 Units/Ml 3 Ml Pen) 5 units SC BID RODOLFO Stop: 05/17/21 08:59 Last Admin: 04/17/21 09:21 Dose: 5 units Documented by: [id number] Cosigned by: [id number] Ioversol (Optiray 320 150ml) 95 ml IV ONCE ONE Stop: 04/16/21 22:11 Last Admin: 04/16/21 22:10 Dose: 95 ml Documented by: [id number] Levothyroxine Sodium (Levothyroxine Sodium 125 Mcg Tablet) 125 mcg PO DAILYBB [facility] Stop: 05/17/21 06:29 Last Admin: 04/17/21 06:19 Dose: 125 mcg Documented by: [id number] Losartan Potassium (Losartan Potassium 25 Mg Tab) 25 mg PO DAILY RODOLFO Stop: 05/17/21 08:59 Last Admin: 04/17/21 09:20 Dose: 25 mg Documented by: [id number] Metoclopramide HCl (Metoclopramide Hcl Inj 5 Mg/Ml 2 Ml Vial) 5 mg IV ONE ONE Stop: 04/16/21 23:13 Last Admin: 04/16/21 23:28 Dose: 5 mg Documented by: [id number] Ondansetron HCl (Ondansetron Inj 2 Mg/Ml 2 Ml Vial) 4 mg IV NOW STA Stop: 04/16/21 21:38 Last Admin: 04/16/21 21:43 Dose: 4 mg Documented by: [id number] Pantoprazole Sodium (Pantoprazole 40 Mg Tab) 40 mg PO DAILY RODOLFO Stop: 05/17/21 08:59 Last Admin: 04/17/21 09:21 Dose: 40 mg Documented by: [id number] Medical Decision Making Differential Diagnosis Differential: Gastroenteritis, Food Borne, Esophageal Perforation, , Electrolyte Abnormality, Dehydration, Intraabdominal Infection, UTI/Pyelonephritis, Bowel Obstruction, Biliary Pathology, amongst other pathology entertained. Medical Records Attestation: I reviewed the patient's medical records. Home Medications Current Medication List: was personally reviewed by me Laboratory Data Attestation: I reviewed the patient's lab results. Result diagrams: 04/17/21 06:57 04/17/21 06:57 Lab Results 04/16/21 04/16/21 04/16/21 Range/Units 21:15 21:15 21:52 WBC 12.53 H (4.8-10.8) K/uL RBC 5.08 (4.2-5.4) M/uL Hgb 15.9 (12.0-16.0) g/dL Hct 46.3 (37-47) % MCV 91.1 (80-100) fL MCH 31.3 (25-34) pg MCHC 34.3 (32-36) g/dL RDW Std Deviation 44.3 (36.4-46.3) fL RDW Coeff of Lu 13.3 (11.5-14.5) % Plt Count 194 (130-400) K/uL MPV 9.2 (7.4-10.4) fL Immature Gran % (Auto) 0.2 % Neut % (Auto) 84.7 % Lymph % (Auto) 8.4 % [place] % (Auto) 5.3 % Eos % (Auto) 1.3 % Baso % (Auto) 0.1 % Neut # (Auto) 10.63 H (1.4-6.5) K/uL Lymph # (Auto) 1.05 L (1.2-3.4) K/uL [place] # (Auto) 0.66 H (0.11-0.59) K/uL Eos # (Auto) 0.16 (0-0.5) K/uL Baso # (Auto) 0.01 (0-0.2) K/uL Immature Gran # (Auto) 0.02 (0.00-0.02) K/uL Sodium 136 (136-145) mmol/L Potassium 3.4 L (3.5-5.1) mmol/L Chloride 105 (98-107) mmol/L Carbon Dioxide 24 (21-32) mmol/L Anion Gap 7.0 (3-11) BUN 9 (7-18) mg/dl Creatinine 0.64 (0.6-1.2) mg/dl Est Cr Clr Drug Dosing Not Reportable Est GFR ( Amer) 102.6 ml/min Est GFR (Non-Af Amer) 88.5 ml/min BUN/Creatinine Ratio 14.5 (10-20) Glucose 146 H (70-99) mg/dl Lactate 2.1 H* (0.4-2.0) mmol/L Calcium 10.1 (8.5-10.1) mg/dl Magnesium 2.1 (1.8-2.4) mg/dl Total Bilirubin 0.7 (0.2-1) mg/dl AST 22 (15-37) U/L ALT 42 (12-78) U/L Alkaline Phosphatase 117 (45-117) U/L Troponin I < 0.015 (0-0.045) ng/ml Total Protein 8.6 H (6.4-8.2) gm/dl Albumin 4.7 (3.4-5.0) gm/dl Globulin 3.9 (2.5-4.0) gm/dl Albumin/Globulin Ratio 1.2 (0.9-2) Lipase 115 (73-393) U/L COVID-19 Eval Order SARS-CoV-2 (PCR) (Negative) 04/17/21 04/17/21 04/17/21 Range/Units 00:02 00:02 00:12 WBC (4.8-10.8) K/uL RBC (4.2-5.4) M/uL Hgb (12.0-16.0) g/dL Hct (37-47) % MCV (80-100) fL MCH (25-34) pg MCHC (32-36) g/dL RDW Std Deviation (36.4-46.3) fL RDW Coeff of Lu (11.5-14.5) % Plt Count (130-400) K/uL MPV (7.4-10.4) fL Immature Gran % (Auto) % Neut % (Auto) % Lymph % (Auto) % [place] % (Auto) % Eos % (Auto) % Baso % (Auto) % Neut # (Auto) (1.4-6.5) K/uL Lymph # (Auto) (1.2-3.4) K/uL [place] # (Auto) (0.11-0.59) K/uL Eos # (Auto) (0-0.5) K/uL Baso # (Auto) (0-0.2) K/uL Immature Gran # (Auto) (0.00-0.02) K/uL Sodium (136-145) mmol/L Potassium (3.5-5.1) mmol/L Chloride (98-107) mmol/L Carbon Dioxide (21-32) mmol/L Anion Gap (3-11) BUN (7-18) mg/dl Creatinine (0.6-1.2) mg/dl Est Cr Clr Drug Dosing Est GFR ( Amer) ml/min Est GFR (Non-Af Amer) ml/min BUN/Creatinine Ratio (10-20) Glucose (70-99) mg/dl Lactate 2.4 H* (0.4-2.0) mmol/L Calcium (8.5-10.1) mg/dl Magnesium (1.8-2.4) mg/dl Total Bilirubin (0.2-1) mg/dl AST (15-37) U/L ALT (12-78) U/L Alkaline Phosphatase (45-117) U/L Troponin I (0-0.045) ng/ml Total Protein (6.4-8.2) gm/dl Albumin (3.4-5.0) gm/dl Globulin (2.5-4.0) gm/dl Albumin/Globulin Ratio (0.9-2) Lipase (73-393) U/L COVID-19 Eval Order Covid19 at [facility] SARS-CoV-2 (PCR) NEGATIVE (Negative) Imaging Data Radiologist's Impression: CT abdomen pelvis with contrast: Comparison to February 07, 2018. The transverse, left, and sigmoid colon are contracted which gives the appearance of mild wall thickening. No definite surrounding fat stranding is seen but mild colitis is suspected. There are scattered gas/fluid levels in the right colon suggesting mild ileus. No focal mesenteric inflammation is identified. No pneumoperitoneum, free fluid, or abscess. Previous cholecystectomy. No biliary duct dilatation is seen. The kidneys are unremarkable. No hydronephrosis or ureterolithiasis is seen. The uterus has been removed. The urinary bladder is normal. Calcified abdominal aorta, nondilated. Mild multilevel degenerative changes throughout the spine. No fracture or subluxation. Radiologist: Raciel Glynn MD ECG Data Attestation: I personally reviewed and interpreted this ECG as follows: Indication: + weakness Rate (beats per minute): 98 Rhythm: + normal sinus ECG Intervals/blocks: + Normal QRS and + Prolonged QT ECG Superior: + Left axis deviation ECG ST segments: + Nonspecific ST abnormalities Additional Comments: Baseline artifact noted MDM Narrative This is a 75-year-old female who presents due to concern for weakness, nausea, vomiting, and diarrhea. Patient appears clinically dehydrated and ill- appearing. Labs are drawn and sent, patient sent for CT imaging given acute onset of symptoms. Patient was found to have a mildly elevated lactic of 2.1 although this may be secondary to dehydration. She was given IV fluids here and several doses of antiemetic. Patient did have one recurrent episode of vomiting. No blood was noted in the emesis. No evidence of bacteremia/sepsis. Given patient's persistent weakness, orthostatic symptoms with attempted ambulation to the bathroom, recurrent nausea and vomiting and inability to tolerate p.o., case was discussed with hospitalist for additional evaluation and management. Patient remained hemodynamically stable while in the emergency department. Patient was made aware of all results, verbalized understanding, and was in agreement with plan. An order was placed for continuous cardiac monitoring. The monitor shows a rate of _80_ with _normal sinus_ rhythm. Patient has no family history of IBD/IBS. Patient was first seen at and observation began at 2110 and was necessary in order to determine etiology of symptoms and treat symptoms. Upon re-evaluation, 3.5 hours of observation revealed that the patient should be admitted. Discharge time at 0115. Impression & Plan Nausea vomiting and diarrhea, Acute dehydration, Generalized weakness Discharge Plan Visit Data Chief Complaint: Vomiting Stated Complaint: HEADACHE, NAUSEA ED Provider: Lyndsey Carmona Discharge Problem: Nausea vomiting and diarrhea, Acute dehydration, Generalized weakness Patient Disposition: Admitted As Inpatient Condition: Good Discharge Instructions Interventions: ED Discharge Assessment Last Done: 04/17/21 02:51
[2021-04-16 21:35] LABS: Basophils # (auto) 0.01 K/uL (0-0.2); Basophils % (auto) 0.1 %; Eosinophils # (auto) 0.16 K/uL (0-0.5); Eosinophils % (auto) 1.3 %; Hematocrit (blood only) 46.3 % (37-47); Hemoglobin 15.9 g/dL (12.0-16.0); Immature Granulocytes # (auto) 0.02 K/uL (0.00-0.02); Immature Granulocytes % (auto) 0.2 %; Lymphocytes # (auto) 1.05 K/uL (1.2-3.4); Lymphocytes % (auto) 8.4 %; Mean Corpuscular Hemoglobin 31.3 pg (25-34); Mean Corpuscular Hgb Conc 34.3 g/dL (32-36); Mean Corpuscular Volume 91.1 fL (80-100); Mean Platelet Volume 9.2 fL (7.4-10.4); Monocytes # (auto) 0.66 K/uL (0.11-0.59); Monocytes % (auto) 5.3 %; Neutrophils # (auto) 10.63 K/uL (1.4-6.5); Neutrophils % (auto) 84.7 %; Platelet Count 194 K/uL (130-400); RDW Coefficient of Variation 13.3 % (11.5-14.5); RDW Standard Deviation 44.3 fL (36.4-46.3); Red Blood Count 5.08 M/uL (4.2-5.4); White Blood Count 12.53 K/uL (4.8-10.8)
[2021-04-16] MEDS ORDERED: ONDANSETRON INJ 2 MG/ML 2 ML VIAL IV STA (21:37)
[2021-04-16 21:54] LABS: Alanine Aminotransferase 42 U/L (12-78); Albumin Level 4.7 gm/dl (3.4-5.0); Aspartate Aminotransferase 22 U/L (15-37); BUN Creatinine Ratio 14.5 (10-20); Blood Urea Nitrogen 9 mg/dl (7-18); Calcium 10.1 mg/dl (8.5-10.1); Carbon Dioxide 24 mmol/L (21-32); Chloride 105 mmol/L (98-107); Est GFR (African American) 102.6 ml/min; Est GFR (Non-African American) 88.5 ml/min; Glucose 146 mg/dl (70-99); Lipase 115 U/L (73-393); Magnesium 2.1 mg/dl (1.8-2.4); Potassium 3.4 mmol/L (3.5-5.1); Sodium 136 mmol/L (136-145)
[2021-04-16 21:59] LABS: Albumin Globulin Ratio 1.2 (0.9-2); Alkaline Phosphatase 117 U/L (45-117); Bilirubin,Total 0.7 mg/dl (0.2-1); Globulin 3.9 gm/dl (2.5-4.0); Total Protein 8.6 gm/dl (6.4-8.2); Troponin I < 0.015 ng/ml (0-0.045)
[2021-04-16] MEDS ORDERED: OPTIRAY 320 150ml IV ONE (22:10)
[2021-04-16] MEDS ORDERED: FAMOTIDINE 20MG/5ML IV PUSH IV STA (23:12)
[2021-04-16] MEDS ORDERED: METOCLOPRAMIDE HCL INJ 5 MG/ML 2 ML VIAL IV ONE (23:12)
[2021-04-16] MEDS ORDERED: SODIUM CHLORIDE 0.9% 1000ML 1,000 ML IV SCH (23:15)
--- NOTE | 2021-04-17 01:38 | History & Physical Report ---
Date of Service April 17, 2021 Assessment & Plan (1) Nausea vomiting and diarrhea: Etiology unclear. Patient reports having similar episodes in the past. -IVF and electrolyte repletion -Zofran PRN -Patient should have a colonoscopy in the future - reports very thin stools as well as change in bowel habits Present on Admission?: Yes (2) Hypokalemia: K supplementation - 20mEq in NSS x 2 L -repeat BMP in AM Present on Admission?: Yes (3) Diabetes mellitus, type 2: Chronic -Hold home medications -Lantus 5u BID wih ISS -Goal BS 100 - 140 Present on Admission?: Yes (4) Hypothyroidism: Chronic. -Check TSH in AM -Continue Synthroid 125mcg daily Present on Admission?: Yes (5) Nonalcoholic fatty liver disease: Stable. Compensated -Monitor Present on Admission?: Yes (6) Hypercholesterolemia: Chronic -Continue Atorvastatin Present on Admission?: Yes (7) GERD (gastroesophageal reflux disease): Chronic -Continue Protonix Present on Admission?: Yes (8) History of CVA (cerebrovascular accident): Stable -Continue Plavix -Continue Atorvastatin Present on Admission?: Yes (9) Hypertension: Chronic -Continue Losartan 25mg po daily -Continue to monitor F/E/N - NSS + KCl x 2 liters, Repeat chemistry in AM, Clear liquid diet - advance as tolerated Ppx -Lovenox Code - DNR/DNI per discussion with patient Dispo - Observation to medical Present on Admission?: Yes History of Present Illness Chief Complaint: nausea, vomiting, diarrhea Primary Care Provider: DO Teri Banks Arabella is a 75yo C female with history of DM, HTN, HLP, NAFL presents with acute onset of nausea, vomiting diarrhea that started this evening. Patient reports at least 9 episodes of non-bloody/nonbilious vomiting as well as non-bloody/non-mucoid diarrhea. Some mild abdominal cramping. Last episode of vomiting and diarrhea was in the ER. Patient has had this happen before - last time was May 2020 She reports feeling chills and getting hot and sweaty preceding the episode Denies chest pain/palpitations/fever No relation to food intake or medications. N orecent antibiotics. No sick contacts. No recent travel. She reports that her stools are very thin. Had a colonoscopy years ago. Patient unable to tolerate PO intake in ER. Had continued nausea/vomiting and diarrhea. Now complaining of headache and some abdominal soreness. No additional complaints at this time. ER Course: NSS, Reglan, Pepcid, Zofran Allergies Allergy/AdvReac Type Severity Reaction Status Date / Time oxycodone AdvReac Intermediate "GETS SICK" Verified 04/16/21 23:50 levofloxacin AdvReac Mild FEELS SICK Verified 04/16/21 23:50 Home Medications Medication Instructions Recorded Confirmed Type calcium carbonate-vitamin D3 1 tab PO DAILY 11/23/18 04/16/21 History cholecalciferol (vitamin D3) 5,000 unit PO DAILY 11/23/18 04/16/21 History [Vitamin D3] cranberry 500 mg PO DAILY 11/23/18 04/16/21 History multivitamin 1 tab PO DAILY 11/23/18 04/16/21 History omega 9-uev-jvn-fish oil [Fish Oil] 1 cap PO DAILY 11/23/18 04/16/21 History vit C,E,zinc,copper-vtykd3j 250 1 cap PO DAILY #30 cap 07/14/19 04/16/21 Rx mg-lutein 5 mg-zeaxanthin 1 mg capsule cinnamon bark [Cinnamon] 500 mg PO DAILY 07/31/19 04/16/21 History liraglutide 0.6 mg/0.1 mL (18 mg/3 1.8 mg SUBCUT DAILY #9 ml 07/08/20 04/16/21 Rx mL) subcutaneous pen injector atorvastatin 40 mg tablet 40 mg PO DAILY #90 tab 08/15/20 04/16/21 Rx clopidogrel 75 mg tablet 75 mg PO DAILY #90 tab 08/15/20 04/16/21 Rx levothyroxine 125 mcg tablet 125 mcg PO DAILY #90 tab 08/15/20 04/16/21 Rx pantoprazole 20 mg tablet,delayed 20 mg PO DAILY #90 tab 08/15/20 04/16/21 Rx release benzonatate 200 mg capsule 200 mg PO TID PRN #30 cap 11/21/20 04/16/21 Rx losartan 25 mg tablet 25 mg PO DAILY #90 tab 02/12/21 04/16/21 Rx amoxicillin 2,000 mg PO UD 04/16/21 04/16/21 History insulin lispro [Humalog KwikPen 5 - 7 unit SUBCUT QPM 04/16/21 04/16/21 History Insulin] Past Med/Surg History Medical History Anxiety Benign essential hypertension Closed fracture of anatomical neck of left humerus Closed head injury without loss of consciousness Closed rib fracture Diabetes mellitus, type 2 Fuchs' corneal dystrophy GERD (gastroesophageal reflux disease) History of CVA (cerebrovascular accident) Hypercholesterolemia Hypothyroidism Lichen sclerosus et atrophicus MCI (mild cognitive impairment) with memory loss Mitral regurgitation Nonalcoholic fatty liver disease Osteoporosis Panic disorder without agoraphobia Type 2 diabetes with nephropathy Vertigo Vitamin D deficiency Surgical History H/O hysterectomy with oophorectomy H/O rectocele repair Hx of appendectomy S/P cholecystectomy Status post breast reduction Status post cataract surgery Status post surgery anterior colporrhaphy, Repair of cystocele Status post tonsillectomy Status post total shoulder arthroplasty Vaginal pessary present Family History Aunt Breast cancer Mother Diabetes Myocardial infarction Heart disease Father Heart trouble Prostate cancer Other Family history non-contributory Denies family history of Ovarian cancer Crohn's disease Dementia Lung cancer Colorectal cancer Social History Smoking Status: Never smoker Second Hand Exposure: No; Hx Alcohol Use: No Hx Substance Use: No Preferred Language: Angolan Communication Ability: Effective Visual Impairment: No Limitations Hearing Ability: Normal Forest Supervisor Required: Yes and No Beliefs That Will Affect Care: None marital status: Current Living Situation: Family current occupational status: retired Feels Safe at Home: Yes Childhood Exposure to Second-Hand Smoke: Yes caffeine: Yes (Coffee x 3 per day.) during the past year weight has: remained stable Dental Care, Regularly: Yes Physical Activity Frequency: Daily Seatbelt Use: always Sunscreen Use: Yes Assistive Devices: None Review of Systems Review of Systems: All systems reviewed & are unremarkable except as noted in HPI & below Physical Exam Physical Exam: General: patient resting comfortably, NAD, non-toxic in appearance, AA&O x 4 Skin: warm, dry, intact, no rashes or lesions HEENT: NC/AT, PERRL, EOMI, anicteric sclera, conjunctiva without injection, external ear normal to inspection and nontender, nares patent, moist mucus membranes, dentition intact, no oropharyngeal lesions, neck supple, trachea midline, no LAD, no thyromegaly, no JVD Heart: +S1/S2, regular, no m/r/g Lungs: equal air entry bilaterally, no rales/rhonchi/wheezes Abd: +BS, soft, NT/ND, no masses/organomegaly/ascites Ext: warm, 2+ pulses in UE/LE bilaterally, no clubbing/cyanosis or edema Neuro: nonfocal, patient AA&O x 4, speech intact, no facial droop, moving all extremities on command with equal strength 5/5 Results & Data Results & Data ([facility]) Vital Signs (Past 12 Hours) Vital Signs Temp Pulse Resp BP Pulse Ox 04/17/21 00:00 24 138/81 95 04/16/21 23:01 95 H 17 93 04/16/21 23:00 97 H 15 123/67 93 04/16/21 22:27 93 H 18 134/71 97 04/16/21 19:39 36.3 C L 95 H 20 143/78 H 96 Laboratory Results Laboratory Results WBC 12.53 K/uL (4.8-10.8) H 04/16/21 21:15 RBC 5.08 M/uL (4.2-5.4) 04/16/21 21:15 Hgb 15.9 g/dL (12.0-16.0) 04/16/21 21:15 Hct 46.3 % (37-47) 04/16/21 21:15 MCV 91.1 fL (80-100) 04/16/21 21:15 MCH 31.3 pg (25-34) 04/16/21 21:15 MCHC 34.3 g/dL (32-36) 04/16/21 21:15 RDW Std Deviation 44.3 fL (36.4-46.3) 04/16/21 21:15 RDW Coeff of Lu 13.3 % (11.5-14.5) 04/16/21 21:15 Plt Count 194 K/uL (130-400) 04/16/21 21:15 MPV 9.2 fL (7.4-10.4) 04/16/21 21:15 Immature Gran % (Auto) 0.2 % 04/16/21 21:15 Neut % (Auto) 84.7 % 04/16/21 21:15 Lymph % (Auto) 8.4 % 04/16/21 21:15 Eddy % (Auto) 5.3 % 04/16/21 21:15 Eos % (Auto) 1.3 % 04/16/21 21:15 Baso % (Auto) 0.1 % 04/16/21 21:15 Neut # (Auto) 10.63 K/uL (1.4-6.5) H 04/16/21 21:15 Lymph # (Auto) 1.05 K/uL (1.2-3.4) L 04/16/21 21:15 Eddy # (Auto) 0.66 K/uL (0.11-0.59) H 04/16/21 21:15 Eos # (Auto) 0.16 K/uL (0-0.5) 04/16/21 21:15 Baso # (Auto) 0.01 K/uL (0-0.2) 04/16/21 21:15 Immature Gran # (Auto) 0.02 K/uL (0.00-0.02) 04/16/21 21:15 Sodium 136 mmol/L (136-145) 04/16/21 21:15 Potassium 3.4 mmol/L (3.5-5.1) L 04/16/21 21:15 Chloride 105 mmol/L (98-107) 04/16/21 21:15 Carbon Dioxide 24 mmol/L (21-32) 04/16/21 21:15 Anion Gap 7.0 (3-11) 04/16/21 21:15 BUN 9 mg/dl (7-18) 04/16/21 21:15 Creatinine 0.64 mg/dl (0.6-1.2) 04/16/21 21:15 Est Cr Clr Drug Dosing Not Reportable 04/16/21 21:15 Est GFR ( Amer) 102.6 ml/min 04/16/21 21:15 Est GFR (Non-Af Amer) 88.5 ml/min 04/16/21 21:15 BUN/Creatinine Ratio 14.5 (10-20) 04/16/21 21:15 Glucose 146 mg/dl (70-99) H 04/16/21 21:15 Lactate 2.4 mmol/L (0.4-2.0) H* 04/17/21 00:12 Calcium 10.1 mg/dl (8.5-10.1) 04/16/21 21:15 Magnesium 2.1 mg/dl (1.8-2.4) 04/16/21 21:15 Total Bilirubin 0.7 mg/dl (0.2-1) 04/16/21 21:15 AST 22 U/L (15-37) 04/16/21 21:15 ALT 42 U/L (12-78) 04/16/21 21:15 Alkaline Phosphatase 117 U/L (45-117) 04/16/21 21:15 Troponin I < 0.015 ng/ml (0-0.045) 04/16/21 21:15 Total Protein 8.6 gm/dl (6.4-8.2) H 04/16/21 21:15 Albumin 4.7 gm/dl (3.4-5.0) 04/16/21 21:15 Globulin 3.9 gm/dl (2.5-4.0) 04/16/21 21:15 Albumin/Globulin Ratio 1.2 (0.9-2) 04/16/21 21:15 Lipase 115 U/L (73-393) 04/16/21 21:15 COVID-19 Eval Order Covid19 at [facility] 04/17/21 00:[address] Scan Per STAT RAD - mild wall cthickening of colon. No stranding. Suspect mild colitis. Scattered gas fluid levels in the right colon suggesting mild ileus. No focal mesenteric inflammation is identified. No pneumoperitoneam, free fluid or abscess. Previous cholecystectomy. No biliary duct dilation is seen. ECG Additional Comments: EKG with NSR at 98, LAD, VW=612, JFD=477, SQy=196 Code Status & VTE Plan VTE Prophylaxis Plan VTE Prophylaxis will be ordered: Yes PG Care Time/CCT Total # of Minutes Spent Total Time Spent with Patient: Total time spent is greater than 50% in coordination of care (as documented) at patient's floor/unit and/or counseling patient: Coding Level of Care Code 90044 OBS Care - Level 3 Diagnoses Nausea vomiting and diarrhea R11.2; R19.7 Hypokalemia E87.6 Diabetes mellitus, type 2 E11.9 Diabetes mellitus [facility] insulin use: without [facility] use Diabetes mellitus complication status: without complication Hypothyroidism E03.9 Hypothyroidism type: unspecified Nonalcoholic fatty liver disease K76.0 Hypercholesterolemia E78.00 GERD (gastroesophageal reflux disease) K21.9 Esophagitis presence: esophagitis presence not specified History of CVA (cerebrovascular accident) Z86.73 Hypertension I10 Hypertension type: essential hypertension (1) Diabetes mellitus, type 2 Diabetes mellitus [facility] insulin use: without intermediate card tender use Diabetes mellitus complication status: without complication Qualified Code(s): E11.9 - Type 2 diabetes mellitus without complications (2) Hypothyroidism Hypothyroidism type: unspecified Qualified Code(s): E03.9 - Hypothyroidism, unspecified (3) GERD (gastroesophageal reflux disease) Esophagitis presence: esophagitis presence not specified Qualified Code(s): K21.9 - Gastro-esophageal reflux disease without esophagitis (4) Hypertension Hypertension type: essential hypertension Qualified Code(s): I10 - Essential (primary) hypertension
[2021-04-17] MEDS ORDERED: GLUCAGON FOR INJ 1 MG VIAL SQ PRN (03:10)
[2021-04-17] MEDS ORDERED: POTASSIUM CHLORIDE 20 MEQ in SODIUM CHLORIDE 0.9% 1000ML 1,000 ML IV SCH (03:10)
[2021-04-17] MEDS ORDERED: GLUCOSE 40% GEL 15 GM TUBE PO PRN (03:10)
[2021-04-17] MEDS ORDERED: CARBOHYDRATES FOR HYPOGLYCEMIA PO PRN (03:10)
[2021-04-17] MEDS ORDERED: DEXTROSE 50% 50 ML SYRINGE IV PRN (03:10)
[2021-04-17] MEDS ORDERED: GLUCOSE 10 TABS/TUBE PO PRN (03:10)
[2021-04-17] MEDS: NSS + 20MEQ KCL 20 MEQ/1,000 ML BAG IV SCH ×2 (04:41→13:05)
[2021-04-17] MEDS ORDERED: ENOXAPARIN INJ 40 MG/0.4 ML SYR SQ SCH (06:00)
[2021-04-17] MEDS ORDERED: LEVOTHYROXINE SODIUM 125 MCG TABLET PO SCH (06:30)
[2021-04-17 06:50] LABS: Appearance Urine Clear (Clear); Bilirubin Urine Negative (Negative); Blood Urine Trace-intact (Negative); Color Urine Yellow; Glucose Urine UA Negative (Negative); Ketones Urine Negative (Negative); Leukocyte Esterase Urine Trace (Negative); Nitrite Urine Negative (Negative); Protein Urine Negative (Negative); Specific Gravity Urine 1.015 (1.000-1.030); Urobilinogen Urine Negative (Negative); pH Urine 6.5 (4.5-7.5)
[2021-04-17 07:15] LABS: Basophils # (auto) 0.02 K/uL (0-0.2); Basophils % (auto) 0.3 %; Eosinophils # (auto) 0.36 K/uL (0-0.5); Hematocrit (blood only) 39.9 % (37-47); Hemoglobin 13.6 g/dL (12.0-16.0); Immature Granulocytes # (auto) 0.01 K/uL (0.00-0.02); Immature Granulocytes % (auto) 0.1 %; Lymphocytes # (auto) 2.03 K/uL (1.2-3.4); Lymphocytes % (auto) 28.3 %; Mean Corpuscular Hemoglobin 30.9 pg (25-34); Mean Corpuscular Hgb Conc 34.1 g/dL (32-36); Mean Corpuscular Volume 90.7 fL (80-100); Mean Platelet Volume 8.8 fL (7.4-10.4); Monocytes # (auto) 0.53 K/uL (0.11-0.59); Monocytes % (auto) 7.4 %; Neutrophils # (auto) 4.23 K/uL (1.4-6.5); Neutrophils % (auto) 58.9 %; Platelet Count 188 K/uL (130-400); RDW Coefficient of Variation 13.4 % (11.5-14.5); RDW Standard Deviation 44.7 fL (36.4-46.3); White Blood Count 7.18 K/uL (4.8-10.8)
[2021-04-17 07:43] LABS: BUN Creatinine Ratio 15.4 (10-20); Calcium 9.2 mg/dl (8.5-10.1); Creatinine Clr Calc Pharmacy 83.8 ml/min; Est GFR (African American) 107.2 ml/min; Est GFR (Non-African American) 92.5 ml/min; Potassium 3.6 mmol/L (3.5-5.1)
[2021-04-17 07:47] LABS: Bacteria Urine Negative (Negative); Epithelial Cell Urine >30 /lpf (0-5); RBC Urine 0-4 /hpf (0-4)
[2021-04-17 07:53] LABS: Thyroid Stimulating Hormone 1.36 uIu/ml (0.300-4.500)
--- NOTE | 2021-04-17 08:44 | CT Scan Report ---
ABDOMEN AND PELVIS CT WITH IV CONTRAST CT DOSE: 578.53 mGycm HISTORY: Nausea. Vomiting. Diarrhea. TECHNIQUE: Multiaxial CT images of the abdomen and pelvis were performed following the use of intrave nous contrast. A dose lowering technique was utilized adhering to the principles of ALARA. COMPARISON STUDY: Abdomen and pelvis CT 02/07/2018. FINDINGS: The lung bases are clear. No pneumoperitoneum. No pneumatosis. Mild distal esophageal wall thickening. Mildly distended gas and fluid-filled stomach. Otherwise, no dilated loops of small bowel to suggest an obstruction. Cholecystectomy. The liver, spleen, adrenal glands, and pancreas are unre markable. No hydronephrosis. Focal cortical scarring within the lower pole of the left kidney, unchan ged. The main portal vein appears patent. Calcified plaque within the normal caliber abdominal aorta. Mildly dilated mid to distal bilateral ureters. No ureteral stones. No hydronephrosis. The bladder i s also mildly distended. Prior hysterectomy and appendectomy. Colonic diverticulosis. No evidence for acute diverticulitis. No evidence for bowel obstruction. The appendix is not identified with certain ty and may be surgically absent. Questionable thickening of the transverse colon, descending colon, a nd sigmoid colon is likely due to underdistention. No pericolonic fat stranding to suggest an acute p rocess. A mild colitis is considered less likely but not entirely excluded. IMPRESSION: Questionable thickening of the transverse colon, descending colon, and sigmoid colon is likely due to underdistention. No pericolonic fat stranding to suggest an acute process. A mild colitis is conside red less likely but not entirely excluded. ACT 112: Negative or not required by law. Electronically signed by: Paul Wellington M.D. 04/17/2021 8:43 AM
[2021-04-17] MEDS ORDERED: CLOPIDOGREL BISULFATE 75 MG TAB PO SCH (09:00)
[2021-04-17] MEDS ORDERED: LOSARTAN POTASSIUM 25 MG TAB PO SCH (09:00)
[2021-04-17] MEDS ORDERED: INSULIN GLARGINE SOLOSTAR 100 UNITS/ML 3 ML PEN SC SCH (09:00)
[2021-04-17] MEDS ORDERED: ATORVASTATIN 40 MG TAB PO SCH (09:00)
[2021-04-17] MEDS ORDERED: PANTOprazole 40 MG TAB PO SCH (09:00)
[2021-04-17] MEDS: INSULIN ASPART 100 UNITS/ML 3 ML PEN SC SCH ×2 (09:22→13:11)
--- NOTE | 2021-04-17 10:50 | Discharge Summary ---
Date of Service April 17, 2021 Admission HPI Per Admitting Provider Teri Bell is a 75yo C female with history of DM, HTN, HLP, NAFL presents with acute onset of nausea, vomiting diarrhea that started this evening. Patient reports at least 9 episodes of non-bloody/nonbilious vomiting as well as non-bloody/non-mucoid diarrhea. Some mild abdominal cramping. Last episode of vomiting and diarrhea was in the ER. Patient has had this happen before - last time was May 2020 She reports feeling chills and getting hot and sweaty preceding the episode Denies chest pain/palpitations/fever No relation to food intake or medications. No recent antibiotics. No sick contacts. No recent travel. She reports that her stools are very thin. Had a colonoscopy years ago. Patient unable to tolerate PO intake in ER. Had continued nausea/vomiting and diarrhea. Now complaining of headache and some abdominal soreness. No additional complaints at this time. ER Course: NSS, Reglan, Pepcid, Zofran Admission Exam Per Admitting Provider General: patient resting comfortably, NAD, non-toxic in appearance, AA&O x 4 Skin: warm, dry, intact, no rashes or lesions HEENT: NC/AT, PERRL, EOMI, anicteric sclera, conjunctiva without injection, external ear normal to inspection and nontender, nares patent, moist mucus membranes, dentition intact, no oropharyngeal lesions, neck supple, trachea midline, no LAD, no thyromegaly, no JVD Heart: +S1/S2, regular, no m/r/g Lungs: equal air entry bilaterally, no rales/rhonchi/wheezes Abd: +BS, soft, NT/ND, no masses/organomegaly/ascites Ext: warm, 2+ pulses in UE/LE bilaterally, no clubbing/cyanosis or edema Neuro: nonfocal, patient AA&O x 4, speech intact, no facial droop, moving all extremities on command with equal strength 5/5 Principal Diagnosis mild colitis, mild ileus Discharge Exam Constitutional WD/WN, vitals as above Respiratory normal respiratory effort, lungs clear to auscultation Cardiovascular RRR, no murmur, no edema Gastrointestinal (Abdomen) normal bowel sounds, soft, nontender, no hepatosplenomegaly Skin no rashes, warm and dry Psychiatric A+Ox3, euthymic affect Discharge Data Allergies Allergy/AdvReac Type Severity Reaction Status Date / Time oxycodone AdvReac Intermediate "GETS SICK" Verified 04/16/21 23:50 levofloxacin AdvReac Mild FEELS SICK Verified 04/16/21 23:50 Consultations 04/16/21 23:39 ED Decision to Admit Stat 04/17/21 00:26 ED Decision to Admit Stat Ordered Studies 04/16/21 21:27 CT abd pelvis IV con only Urgent Hospital Course (1) Colitis: 75 yo F Hx CVA, DM2, hypothyroidism, NAFLD, HLD, GERD admitted for observation and evaluation of frequent episodes of nausea, vomiting, and diarrhea. N/V/D, Stool changes: - Etiology unclear. Patient reports having similar episodes in the past. Could be multifactorial with Hx GERD, NAFLD, hypo/hyperglycemia, constipation. - CTAP showed mild colitis and mild ileus; likely these are also contributing to symptoms. - Tolerated clear liquid diet, and was advanced to Regular Heart Healthy diet without nausea or vomiting on day of discharge. - GI outpatient follow up will be scheduled as patient has had pencil-thin stools, and continued intermittent N/V/D. Odd presentation that keeps recurring for last 2 years or so. - Short course Zofran sent to patient's pharmacy. Encouraged PO intake, and BRAT diet / clears if has another episode of N/V. - Have advised patient to increase Miralax dosing as needed to have one soft formed BM daily. History sounds somewhat like IBS-C type syndrome which may be benefited from stool softeners. Hypokalemia: - Presented with K 3.4 in ER. - Since admission has been receiving 20meq KCl in IVF. - Repeat K this AM 3.6. - Low level likely due to GI losses. DM2: - Holding home medications while admitted. - Received Lantus and SSI. - Can resume home medications on discharge. - Recommend PCP follow up as patient endorses wide margin of BSG at home, which could be contributing to nausea/vomiting episodes. Hypothyroidism: - TSH normal. - Continue Synthroid 125mcg daily. Nonalcoholic fatty liver disease: - LFTs normal. - Could be contributing to N/V episodes. - GI follow up as above. HLD: - Continue Atorvastatin GERD: - Continue Protonix History of CVA: - Continue Plavix. - Continue Atorvastatin. Hypertension: - Continue Losartan 25mg po daily. - BP normotensive this admission. Total Time Total Time Spent Total Time Spent (In Minutes): <30 Discharge Plan Discharge Items Patient Disposition: Home - Self-Care Reason For Visit: NAUSEA/VOMITING/DIARRHEA Discharge Diagnosis: ileus, colitis Activity: Per Instructions section Non-emergency contact: Primary Care Provider and Design Draftsman Call non-emergency contact if: your symptoms worsen and your temperature is above 101 Follow-up/Referrals: Aliyah Rice CRNP [Nurse Practitioner] - 04/24/21 11:00 am (1-2 weeks following discharge; continued evaluation of intermittent nausea and vomiting without cause, question of need for EGD given Hx GERD. Also having new pencil thin stools, likely needs colonoscopy.) Heidi Lim DO [Primary Care Provider] - 04/29/21 9:20 am (1-2 weeks following discharge) Diet: Carb Consistent or DM2 and Other - See Diet Comment Diet Comment: Low Acid Diet Addtl Attending Provider Instructions: You were admitted to the hospital for evaluation of nausea and vomiting causing you to feel rundown and weak. We did a CT scan of your belly which showed some mild inflammation of the colon called colitis, as well as a mild ileus which is a slowing down of the gut system due to stress. It is suspected that the mild colitis or mild colon infection (which usually self-resolves) caused your symptoms of diarrhea, and the ileus may have caused your nausea and vomiting. You did not have any fevers while you were here. You also did not have any other signs of infection on our labwork. Given that you have had some stool changes over the last several months (pencil stools) you will have a follow up with the [facility] to likely have a colonoscopy. It is important to discuss your sugars with your primary care doctor, because both low and high sugars can cause nausea and vomiting as well. Lastly, sometimes fatty liver disease can give nonspecific abdominal pain and nausea. A prescription for Zofran, a nausea medication, was sent to the [facility]. Keep an eye on your constipation, and if you are noticing that you are constipated you can take daily constipation medicine such as Miralax, and increase your dose as needed to have one soft well formed BM daily. Please return for medical evaluation if you have fevers over 100.4 degrees, are having inability to keep food down, chest pain, shortness of breath. Pending Studies at Discharge: No Stand-Alone Forms: My [facility] Medications and DC Order Prescriptions: New ondansetron 8 mg tablet,disintegrating 8 mg PO Q8H 7 Days Qty: 21 RF: 0 Continued liraglutide 0.6 mg/0.1 mL (18 mg/3 mL) pen injector 1.8 mg SUBCUT DAILY Qty: 9 RF: 5 atorvastatin 40 mg tablet 40 mg PO DAILY Qty: 90 RF: 3 clopidogrel 75 mg tablet 75 mg PO DAILY Qty: 90 RF: 3 levothyroxine 125 mcg tablet 125 mcg PO DAILY Qty: 90 RF: 3 pantoprazole 20 mg tablet,delayed release (DR/EC) 20 mg PO DAILY Qty: 90 RF: 3 losartan 25 mg tablet 25 mg PO DAILY Qty: 90 RF: 1 Ocuvite Adult 50 Plus 250-5-1 mg capsule 1 cap PO DAILY Qty: 30 RF: 2 benzonatate 200 mg capsule 200 mg PO TID PRN (Reason: cough) Qty: 30 RF: 0 multivitamin Tablet 1 tab PO DAILY RF: 0 cranberry 500 mg Capsule 500 mg PO DAILY RF: 0 calcium carbonate-vitamin D3 600 mg(1,500mg) -400 unit Tablet 1 tab PO DAILY RF: 0 cholecalciferol (vitamin D3) [Vitamin D3] 5,000 unit Tablet 5,000 unit PO DAILY RF: 0 omega 3-meo-jxy-fish oil [Fish Oil] 1,000 mg (120 mg-180 mg) Capsule 1 cap PO DAILY RF: 0 cinnamon bark [Cinnamon] 500 mg Capsule 500 mg PO DAILY RF: 0 amoxicillin 500 mg capsule 2,000 mg PO UD RF: 0 insulin lispro [Humalog KwikPen Insulin] 100 unit/mL insulin pen 5 - 7 unit SUBCUT QPM RF: 0 Discharge Orders: Discharge Order (Routine); Ordered 04/17/21 Ordered By: Leeanne Cabrera/Other Patient Handouts: What Is Ulcerative Colitis?, Understanding Colitis Admission Data Admit Date/Time: 04/17/21 01:24 Attending Provider: Brice Wood Admit Provider: Carine Glynn Primary Care Provider: Ricotta,Heidi M. Other Providers: Carine Glynn Other Interventions: Discharge Summary Assessment (RN) Last Done: 04/17/21 14:08 Supervising Physician Co-Signing Physician Notes I personally examined the patient and verified all wyman points of history and exam, discussed case, and agree with decision making with Dr Barreto. Stomach feeling a good deal better. Eating okay. No further nausea vomiting or diarrhea. Feels up to going home. Vitals noted, in general she is awake and alert pleasant no distress. HEENT normocephalic atraumatic mucous membranes moist. Abdomen is soft mild epigastric tenderness no guarding no rebound no rigidity. No tenderness elsewhere no guarding rebound or rigidity elsewhere either. Colitis pictureacutely this seems consistent with a self-limited infectious colitis such as a viral gastroenteritis. With her prior track record of having these episodes frequently, certainly outpatient GI work-up is reasonable. That said, she has not had an episode for about a year prior to this 1. I did discuss with her possibility that her prior episodes, given that they came so stereotyped and so frequently, may have simply been overflow diarrhea in the context of chronic constipation predominant IBSparticularly given that she describes chronic constipation type stools on a regular basis. Stable/safe for home. Resident Activity Tracking Resident Involvement: Resident Care Provided Care Provided: Adult Hospital Medicine
--- NOTE | 2021-04-17 17:07 | Billing Data ---
Date of Service April 17, 2021 Coding Level of Care Code 25797 OBS Care - Discharge
--- NOTE | 2021-04-18 06:37 | Electrocardiogram Report ---
Test Reason : Blood Pressure : / mmHG Vent. Rate : 098 BPM Atrial Rate : 098 BPM P-R Int : 184 ms QRS Dur : 112 ms QT Int : 382 ms P-R-T Axes : 000 -35 082 degrees QTc Int : 487 ms Poor data quality, interpretation may be adversely affected Normal sinus rhythm Left axis deviation Minimal voltage criteria for LVH, may be normal variant Poor R wave progression, consider anterior MD vs. lead placement vs. LVH Abnormal ECG When compared with ECG of 22-NOV-2018 21:25, [place] interval has decreased Confirmed by Garry Brito ([id number]) on 04/18/2021 6:37:26 AM Referred By: REFERRED SELF Confirmed By:Garry Brito
== END 2021-04-17 14:55 | disposition home or self-care (01) ==
LOC: 3N 19:33 → ED 19:33 → SUATTDRO 04-17 01:24 → 3N 04-17 02:51